=== PATIENT | female | born 1930 | race Caucasian/White ===

== ENCOUNTER 2017-04-03 12:44 | Inpatient (IN) | payer MEDICARE, OTHER ==
[2017-04-03] MEDS ORDERED: METHYLPREDNISOLONE INJ 125 MG/2 ML SDV ONE (12:56)
[2017-04-03] MEDS ORDERED: METHYLPREDNISOLONE INJ 125 MG/2 ML SDV IV ONE (13:00)
[2017-04-03] MEDS ORDERED: RACEPINEPHRINE HCL 2.25% NEB 0.5 ML AMPUL NEB ONE (13:00)
[2017-04-03] MEDS ORDERED: ETOMIDATE INJ/PF 20 MG/10 ML SDV IV ONE (13:08)
[2017-04-03] MEDS ORDERED: PROPOFOL 100 ML IV ONE (13:13)
[2017-04-03] MEDS ORDERED: NORMAL SALINE 1000 ML 1,000 ML IV ONE ×2 (13:43)
[2017-04-03 13:47] LABS: VENOUS BLOOD BASE EXCESS 7.1 mmol/L; VENOUS BLOOD HCO3 34.1 mmol/L (20-32); VENOUS BLOOD PH 7.33 (7.30-7.42)
[2017-04-03 13:49] LABS: ABSOLUTE MONOCYTES (AUTO) 0.6 10^3/uL (0.1-1.4); ABSOLUTE NEUT (AUTO) 4.3 10^3/uL (1.7-8.2); BASOPHILS % (AUTO) 0.4 % (0-2); EOSINOPHILS % (AUTO) 0.2 % (0-6); HEMATOCRIT 17.7 % (36.0-47.0); LYMPHOCYTES % (AUTO) 17.1 % (13-45); MEAN CORPUSCULAR HEMOGLOBIN 28.6 pg (27.0-33.4); MEAN CORPUSCULAR HGB CONC 32.5 g/dL (32.0-36.0); MEAN CORPUSCULAR VOLUME 88 fl (80-97); MONOCYTES % (AUTO) 10.7 % (3-13); PLATELET COUNT 593 10^3/uL (150-450); RED BLOOD COUNT 2.01 10^6/uL (3.72-5.28); RED CELL DISTRIBUTION WIDTH 17.1 % (11.5-14.0); SEGMENTED NEUTROPHILS % (AUTO) 71.6 % (42-78); TOTAL CELLS COUNTED % (AUTO) 100 %
[2017-04-03 13:56] LABS: HEMOGLOBIN 5.7 g/dL (12.0-15.5)
[2017-04-03 14:01] LABS: VENOUS BLOOD PCO2 65.8 mmHg (35-63)
[2017-04-03] MEDS ORDERED: NORMAL SALINE 250 ML IV PRN ×2 (14:01)
[2017-04-03 14:04] LABS: ALANINE AMINOTRANSFERASE 28 U/L (9-52); ALKALINE PHOSPHATASE 79 U/L (38-126); ANION GAP 9 (5-19); ASPARTATE AMINO TRANSFERASE 29 U/L (14-36); BILIRUBIN,DIRECT 0.1 mg/dL (0.0-0.4); BILIRUBIN,TOTAL 0.1 mg/dL (0.2-1.3); BLOOD UREA NITROGEN 15 mg/dL (7-20); CALCIUM 8.4 mg/dL (8.4-10.2); CARBON DIOXIDE 36 mmol/L (22-30); CHLORIDE 100 mmol/L (98-107); CREATINE KINASE 44 U/L (30-135); GLUCOSE 109 mg/dL (75-110); LIPASE 105.8 U/L (23-300); MAGNESIUM 1.8 mg/dL (1.6-2.3); POTASSIUM 3.7 mmol/L (3.6-5.0); SODIUM 144.6 mmol/L (137-145); TOTAL PROTEIN 5.3 g/dL (6.3-8.2)
[2017-04-03 14:16] LABS: TROPONIN I 0.028 ng/mL
[2017-04-03 14:34] LABS: APPEARANCE,URINE CLOUDY; BILIRUBIN,URINE NEGATIVE (NEGATIVE); COLOR,URINE YELLOW; GLUCOSE, URINE NEGATIVE (NEGATIVE); KETONES,URINE NEGATIVE (NEGATIVE); LEUKOCYTE ESTERASE,URINE LARGE (NEGATIVE); NITRITE,URINE POSITIVE (NEGATIVE); PROTEIN,URINE 100 mg/dL (NEGATIVE); URINE SPECIFIC GRAVITY 1.015; UROBILINOGEN,URINE NEGATIVE mg/dL (<2.0)
[2017-04-03] MEDS ORDERED: CEFTRIAXONE 1 GM/D5W RTU 1 GM/50 ML RTUPB IV ONE (14:45)
--- NOTE | 2017-04-03 14:48 | RADIOLOGY REPORT (SQ) ---
EXAM DESCRIPTION: CHEST SINGLE VIEW COMPLETED DATE/TIME: 04/03/2017 2:37 pm REASON FOR STUDY: ET TUBE PLACEMENT CENTRAL LINE PLACEMENT COMPARISON: None. EXAM PARAMETERS: NUMBER OF VIEWS: One view. TECHNIQUE: Single frontal radiographic view of the chest acquired. RADIATION DOSE: NA LIMITATIONS: None. FINDINGS: LUNGS AND PLEURA: Diffuse airspace disease bilaterally. Differential includes aspiration, hemorrhage, infectious process or alveolar edema. MEDIASTINUM AND HILAR STRUCTURES: No masses. Contour normal. HEART AND VASCULAR STRUCTURES: Heart normal in size. Normal vasculature. BONES: No acute findings. HARDWARE: Endotracheal tube present and in proper position. Tip 3.8 cm from the stanislav. Tip of the central line on the right projected over the right atrium. Distally NG beneath the diaphragm. OTHER: No other significant finding. IMPRESSION: Extensive pulmonary opacity bilaterally. See above discussion. Tip of the central line on the right projected over the right atrium. Endotracheal tube in good position. Distal NG tube beneath the diaphragm. TECHNICAL DOCUMENTATION: JOB ID: [id number] [employer]- All Rights Reserved
[2017-04-03] MEDS ORDERED: PIPERACILLIN/TAZOBACTAM 4.5 GM VIAL IV ONE (14:56)
--- NOTE | 2017-04-03 15:04 | ER Document Report ---
ED General - General Chief Complaint: Allergic Reaction Stated Complaint: ALLERGIC REACTION Time Seen by Provider: 04/03/17 13:00 - HPI Patient complains to provider of: Allergic reaction Notes: Patient coming in for possible allergic reaction. According EMS originally was called out for fever and feeling unwell. According EMS patient was seen yesterday by local EMS however refused care at that time. Today patient with diffuse periorbital edema and according EMS tongue swelling. Patient was given Benadryl and Pepcid transported to the ER for further evaluation. Upon my evaluation patient with mild to moderate tongue swelling angioedema bilateral orbits quick evaluation of the oral cavity does not reveal uvula edema. Patient oxygenation upon initial arrival was 84% requiring a nonrebreather upon removing a nonrebreather to examine the oral cavity patient quickly desaturated. Otherwise patient has a history of dementia does moan the pain will open her eyes to voice. No other history given via EMS except for recent C. difficile diagnoses with antibiotic treatment and recurrent UTIs - Related Data Allergies/Adverse Reactions: diazepam [From Valium] Allergy (Verified 04/03/17 15:08) Past Medical History - Social History Smoking Status: Unknown if Ever Smoked Chew tobacco use (# tins/day): No Drug Abuse: None Family History: Reviewed & Not Pertinent Patient has suicidal ideation: No Patient has homicidal ideation: No Renal/ Medical History: Denies: Hx Peritoneal Dialysis Review of Systems - Review of Systems -: Yes ROS unobtainable due to patient's medical condition - Dementia Physical Exam - Vital signs Vitals: Resp Pulse Ox 15 100 04/03/17 12:48 04/03/17 12:48 Interpretation: Hypoxic - General General appearance: Other - HEENT Head: Normocephalic, Atraumatic Eyes: Normal Conjunctiva: Normal Cornea: Normal Eyelashes: Other - Periorbital edema Pupils: PERRL Mouth/Lips: Normal - Mild to moderate swelling of the tongue. There is also uvula edema present. Pharynx: Uvular edema Neck: Normal - Respiratory Respiratory status: Respiratory distress - Moderate Chest status: Nontender Breath sounds: Rhonchi, Wheezing Chest palpation: Normal - Cardiovascular Heart sounds: Normal auscultation Murmur: No - Abdominal Inspection: Normal Distension: No distension Bowel sounds: Normal Tenderness: Nontender Organomegaly: No organomegaly - Rectal Stool: Black - Back Back: Normal, Nontender - Extremities General upper extremity: Normal inspection, Nontender, Normal color, Normal ROM , Normal temperature General lower extremity: Normal inspection, Nontender, Normal color, Normal ROM , Normal temperature, Normal weight bearing. No: Peter's sign - Neurological Neuro grossly intact: Yes Cognition: Normal Orientation: AAOx4 [employer] Coma Scale Eye Opening: Spontaneous [employer] Coma Scale Verbal: Oriented [employer] Coma Scale Motor: Obeys Commands [employer] Coma Scale Total: 15 Speech: Normal Motor strength normal: LUE, RUE, LLE, RLE Sensory: Normal - Psychological Associated symptoms: Normal affect, Normal mood - Skin Skin Temperature: Warm Skin Moisture: Dry Skin Color: Normal Course - Re-evaluation Re-evalutation: 04/03/17 15:18 Due to the patient required 100% nonrebreather with respiratory distress becoming hypoxic after removal of oxygen concern for allergic reaction airway compromise patient was intubated. There was swelling of the airway during intubation however we are over the past a 70 tube after intubation family did arrive states history of recurrent UTIs recent C. difficile infection and a history of chronic GI bleeding states multiple colonoscopies with no found source. Patient received multiple blood transfusions because of the chronic GI bleed. States her symptoms have been ongoing for the last 3 days with swelling of the face. Laboratory studies showed anemia requiring transfusion slight elevation and CO2 in the VBG. Patient continued on the ventilator with elevated FiO2 of 80-90% keep her oxygenation up. Suctioning of thick sputum from ET tube was also performed. Rectal exam revealed black stool. Unable to obtain a sample for C. difficile testing this time. Initially start patient on Zosyn. Will transfuse patient 2 units of blood will continue to monitor patient. Patient did have central line placed 2 as well as patient will need ICU care. 04/03/17 15:19 - Vital Signs Vital signs: Temp Pulse Resp BP Pulse Ox 18 132/67 H 100 04/03/17 15:02 04/03/17 15:02 04/03/17 15:02 - Laboratory Result Diagrams: 04/03/17 13:34 04/03/17 13:34 Laboratory results interpreted by me: 04/03/17 04/03/17 04/03/17 13:34 13:34 13:34 RBC 2.01 L Hgb 5.7 L Hct 17.7 L RDW 17.1 H Plt Count 593 H VBG pCO2 65.8 H* VBG HCO3 34.1 H Carbon Dioxide 36 H Total Bilirubin 0.1 L NT-Pro-B Natriuret Pep Total Protein 5.3 L Albumin 3.0 L Urine Protein Urine Nitrite Ur Leukocyte Esterase Urine Ascorbic Acid Crossmatch 04/03/17 04/03/17 04/03/17 13:34 14:13 14:37 RBC Hgb Hct RDW Plt Count VBG pCO2 VBG HCO3 Carbon Dioxide Total Bilirubin NT-Pro-B Natriuret Pep 3110 H Total Protein Albumin Urine Protein 100 H Urine Nitrite POSITIVE H Ur Leukocyte Esterase LARGE H Urine Ascorbic Acid 40 H Crossmatch See Detail Procedures - Central Line Right Internal jugular Consent obtained: Yes Central line pre-insertion: Sterile PPE donned, Chloraprep applied Central line lumen type: Triple Ultrasound guided: Yes CM at insertion site: 20 Line secured with sutures: Yes Central line post-insertion: Blood return from lumens, Biopatch applied, Sutured , Sterile dressing applied, Position confirmed w/ CXR Number of attempts: 1 Complications: No - Intubation Nasotracheal Airway evaluation: Large tongue, Poss. upper airway obst. Mallampati Classification: Class 3 Intubation method: Nasotracheal Blade size: 3 Equipment used: Glidescope ETT size: 7.0 ETT secured at: Teeth ETT secured at (cm): 20 Breath Sounds after Intubation: Equal End tidal CO2 confirmed: Yes Critical Care Note - Critical Care Note Total time excluding time spent on procedures (mins): 60 Comments: Multiple evaluation for respiratory distress. Discharge - Discharge Clinical Impression: Anemia requiring transfusions Respiratory failure Qualifiers: Chronicity: acute Respiratory failure complication: unspecified whether with hypoxia or hypercapnia Qualified Code(s): J96.00 - Acute respiratory failure, unspecified whether with hypoxia or hypercapnia Allergic reaction Qualifiers: Encounter type: initial encounter Qualified Code(s): T78.40XA - Allergy, unspecified, initial encounter GI bleed Qualifiers: GI bleed type/associated pathology: unspecified gastrointestinal hemorrhage type Qualified Code(s): K92.2 - Gastrointestinal hemorrhage, unspecified Pneumonia Qualifiers: Pneumonia type: due to unspecified organism Laterality: unspecified laterality Lung location: unspecified part of lung Qualified Code(s): J18.9 - Pneumonia, unspecified organism Condition: Fair Disposition: ADMITTED INPATIENT Admitting Provider: Hospitalist - [facility] Admitted: ICU Referrals: ALKA VIRAMONTES PA-C [Primary Care Provider] - Follow up as needed
[2017-04-03] MEDS ORDERED: ACETAMINOPHEN 325 MG TABLET PO PRN (15:25)
[2017-04-03] MEDS ORDERED: OXYCODONE-ACETAMINOPHEN 5-325 MG TABLET PO PRN (15:25)
[2017-04-03] MEDS ORDERED: DEXTROSE 5%-NORMAL SALINE 1,000 ML IV PRN (15:25)
[2017-04-03] MEDS ORDERED: ONDANSETRON HCL INJ/PF 4 MG/2 ML SDV IV PRN (15:25)
[2017-04-03] MEDS ORDERED: PIPERACILLIN/TAZOBACTAM 3.375 GM VIAL IV SCH (15:30)
[2017-04-03] MEDS ORDERED: PHARMACY COMMUNICATION ORDER MC NR (15:30)
[2017-04-03 15:39] LABS: ARTERIAL BLOOD BASE EXCESS 7.9 mmol/L; ARTERIAL BLOOD H2CO3 1.95 mmol/L (1.05-1.35); ARTERIAL BLOOD HCO3 34.4 mmol/L (20-26); ARTERIAL BLOOD O2 SATURATION 98.3 % (94-98); ARTERIAL BLOOD PCO2 64.7 mmHg (35-45); ARTERIAL BLOOD PH 7.34 (7.35-7.45); ARTERIAL BLOOD PO2 129.1 mmHg (80-100); ARTERIAL BLOOD TOTAL CO2 36.4 mmol/L (21-25)
[2017-04-03 15:40] LABS: ARTERIAL BLOOD FIO2 90%
[2017-04-03] MEDS ORDERED: SUCCINYLCHOLINE CHLORIDE INJ 200 MG/10 ML VIAL ONE (16:12)
[2017-04-03] MEDS ORDERED: ROCURONIUM BROMIDE INJ 50 MG/5 ML VIAL IV ONE (16:12)
--- NOTE | 2017-04-03 16:14 | RADIOLOGY REPORT (SQ) ---
EXAM DESCRIPTION: KUB/ABDOMEN (SINGLE VIEW) COMPLETED DATE/TIME: 04/03/2017 3:58 pm REASON FOR STUDY: Check Placement of NG Tube COMPARISON: None. NUMBER OF VIEWS: One view. TECHNIQUE: Supine radiographic image of the abdomen acquired. LIMITATIONS: KUB for nasogastric tube placement. Inferior pelvis incompletely included in the field of view FINDINGS: A nasogastric tube is present with the tip in the stomach and side port near the GE juncti on. Grossly nonobstructive bowel gas pattern. There is opacification of the right lung base, patchy opacification left lung base worrisome for biba silar pneumonia or atelectasis. Bladder stimulator is present with a battery pack over the left gluteal region. Multiple calcified splenic granulomas. Calcified pelvic phleboliths. Degenerative changes lumbar spine IMPRESSION: Nasogastric tube tip and side port in the stomach TECHNICAL DOCUMENTATION: JOB ID: [id number] [employer]- All Rights Reserved
[2017-04-03 16:33] LABS: A TYPE INFLUENZA AG NEGATIVE (NEGATIVE); B INFLUENZA AG NEGATIVE (NEGATIVE)
[2017-04-03] MEDS ORDERED: MIDAZOLAM HCL 50 MG/100 ML RTUINJ IV ONE (17:59)
[2017-04-03] MEDS: PROPOFOL 100 ML IV PRN ×2 (18:06→22:14)
[2017-04-03] MEDS: MIDAZOLAM HCL 50 MG/100 ML RTUINJ IV PRN (18:06)
[2017-04-03] MEDS: LANSOPRAZOLE 30 MG TAB.RAP.DR PO SCH (18:57)
[2017-04-03] MEDS: FUROSEMIDE INJ/PF 20 MG/2 ML SDV IV SCH (18:57)
[2017-04-03] MEDS: DIPHENHYDRAMINE HCL 50 MG/ML VIAL IV SCH (18:57)
[2017-04-03] MEDS: LINEZOLID 300 ML IV SCH (19:02)
[2017-04-03] MEDS: DEXTROSE 5%-NORMAL SALINE 1,000 ML IV PRN (19:04)
[2017-04-03] MEDS ORDERED: GLUCAGON,HUMAN RECOMB 1 MG INJ IM PRN (19:20)
[2017-04-03] MEDS ORDERED: DEXTROSE 40% GEL 15 GM TUBE PO PRN ×2 (19:20)
[2017-04-03] MEDS ORDERED: DEXTROSE 50%-WATER 25 GM/50 ML DISP.SYRIN IV PRN ×2 (19:20)
--- NOTE | 2017-04-03 19:30 | PDOC H&P ---
History of Present Illness Admission Date/PCP: ALKA VIRAMONTES PA-C Patient complains of: Patient intubated History of Present Illness: PHYLLIS BARRERA is a 86 year old female had not been feeling well for a couple of days. She has not been able to walk. On the day of evaluation her eyelids were swollen as well as the tongue. EMS was called and patient was administered Pepcid and Benadryl while in route. Upon arrival to emergency room patient was found to be hypoxemic and the decision was made by ED physician to intubate patient. Our service was contacted for further management. It is not worth it to mention that daughter was to bedside and was able to provide some information as above. Also she stated that patient suffers from anemia and had required to be transfused in the recent past. She always test positive for blood in her stool. She had been extensively evaluated and the physicians taking care of her had not been able to determine the cause. Patient was recently treated for C. difficile. Patient suffers from recurrent urinary tract infection and it appears to be that the recurring use of antibiotic was the culprit. Also it appears that patient tested positive for Salmonella. Patient has history of diabetes and is on Januvia. However daughter cannot tell about other medications such as blood pressure medication. Past Medical History Cardiac Medical History: Reports: Hyperlipidema Cardiac History Note: Unavailable Pulmonary History Note: Unavailable EENT Medical History: Reports: None Neurological Medical History: Reports: None Endocrine Medical History: Reports: Diabetes Mellitus Type 2, Hypothyroidism Renal/ Medical History: Reports: None Malignancy Medical History: Reports: None GI Medical History: Reports: Other - GI bleeding of unknown source Psychiatric Medical History: Reports: Dementia, Depression Hematology: Reports: Anemia Infectious Medical History: Denies: Other Past Surgical History Past Surgical History: Reports: Other - Colonoscopies Social History Information Source: Relative Smoking Status: Unknown if Ever Smoked Frequency of Alcohol Use: None Hx Recreational Drug Use: No Drugs: None Hx Prescription Drug Abuse: Yes - Advance Directive Resuscitation Status: Do Not Resuscitate Family History Family History: Reviewed & Not Pertinent Parental Family History Reviewed: Yes Children Family History Reviewed: Yes Sibling(s) Family History Reviewed.: Yes Medication/Allergy Home Medications: Amlodipine Besylate [Norvasc 10 mg Tablet] 10 mg PO QHS 04/03/17 Anastrozole [Arimidex 1 mg Tablet] 1 mg PO DAILY 04/03/17 Aspirin [Aspirin 325 mg Tablet] 325 mg PO QHS 04/03/17 Atorvastatin Calcium [Lipitor 20 mg Tablet] 20 mg PO QHS 04/03/17 Calcium Carbonate/Vitamin D3 [Oyster Shell Calcium-Vit D Tab] 1 each PO QPM Donepezil HCl [Aricept] 10 mg PO QPM 04/03/17 Eplerenone [Inspra] 50 mg PO DAILY 04/03/17 Escitalopram Oxalate [Lexapro 10 mg Tablet] 10 mg PO QPM 04/03/17 Glimepiride [Amaryl 1 mg Tablet] 1 mg PO BID 04/03/17 Levothyroxine Sodium [Synthroid] 137 mcg PO Q6AM 04/03/17 Losartan Potassium [Cozaar 50 mg Tablet] 50 mg PO QHS 04/03/17 Metformin HCl [Glucophage 500 mg Tablet] 500 mg PO BID 04/03/17 Omeprazole Magnesium [Prilosec Otc] 20 mg PO QHS 04/03/17 Ropinirole HCl [Requip 2 Mg Tablet] 2 mg PO Q12 04/03/17 Sitagliptin Phosphate [Januvia 50 mg Tablet] 50 mg PO Q12 04/03/17 Allergies/Adverse Reactions: diazepam [From Valium] Allergy (Verified 04/03/17 15:08) Physical Exam Vital Signs: Temp Pulse Resp BP Pulse Ox 15 133/60 H 100 04/03/17 15:42 04/03/17 15:42 04/03/17 15:42 Intake & Output 04/02/17 04/03/17 04/04/17 06:59 06:59 06:59 Weight 85.3 kg Results Laboratory Results: 04/03/17 13:34 04/03/17 13:34 04/03/17 04/03/17 04/03/17 12:50 12:50 13:34 WBC Cancelled RBC Cancelled Hgb Cancelled Hct Cancelled MCV Cancelled MCH Cancelled MCHC Cancelled RDW Cancelled Plt Count Cancelled Seg Neutrophils % Cancelled Lymphocytes % Cancelled Monocytes % Cancelled Eosinophils % Cancelled Basophils % Cancelled Absolute Neutrophils Cancelled Absolute Lymphocytes Cancelled Absolute Monocytes Cancelled Absolute Eosinophils Cancelled Absolute Basophils Cancelled Carbonic Acid HCO3/H2CO3 Ratio ABG pH ABG pCO2 ABG pO2 ABG HCO3 ABG O2 Saturation ABG Base Excess VBG pH 7.33 VBG pCO2 65.8 H* VBG HCO3 34.1 H VBG Base Excess 7.1 FiO2 Sodium Cancelled Potassium Cancelled Chloride Cancelled Carbon Dioxide Cancelled Anion Gap Cancelled BUN Cancelled Creatinine Cancelled Est GFR ( Amer) Cancelled Est GFR (Non-Af Amer) Cancelled Glucose Cancelled Lactic Acid Calcium Cancelled Magnesium Cancelled Total Bilirubin Cancelled AST Cancelled ALT Cancelled Alkaline Phosphatase Cancelled Total Protein Cancelled Albumin Cancelled Lipase Cancelled Urine Color Urine Appearance Urine pH Ur Specific Onward Urine Protein Urine Glucose (UA) Urine Ketones Urine Blood Urine Nitrite Ur Leukocyte Esterase Urine WBC (Auto) Urine RBC (Auto) Stool Occult Blood Blood Type Antibody Screen 04/03/17 04/03/17 04/03/17 13:34 13:34 14:00 WBC 6.0 RBC 2.01 L Hgb 5.7 L Hct 17.7 L MCV 88 MCH 28.6 MCHC 32.5 RDW 17.1 H Plt Count 593 H Seg Neutrophils % 71.6 Lymphocytes % 17.1 Monocytes % 10.7 Eosinophils % 0.2 Basophils % 0.4 Absolute Neutrophils 4.3 Absolute Lymphocytes 1.0 Absolute Monocytes 0.6 Absolute Eosinophils 0.0 Absolute Basophils 0.0 Carbonic Acid HCO3/H2CO3 Ratio ABG pH ABG pCO2 ABG pO2 ABG HCO3 ABG O2 Saturation ABG Base Excess VBG pH VBG pCO2 VBG HCO3 VBG Base Excess FiO2 Sodium 144.6 Potassium 3.7 Chloride 100 Carbon Dioxide 36 H Anion Gap 9 BUN 15 Creatinine 0.55 Est GFR ( Amer) > 60 Est GFR (Non-Af Amer) > 60 Glucose 109 Lactic Acid Calcium 8.4 Magnesium 1.8 Total Bilirubin 0.1 L AST 29 ALT 28 Alkaline Phosphatase 79 Total Protein 5.3 L Albumin 3.0 L Lipase 105.8 Urine Color Urine Appearance Urine pH Ur Specific Onward Urine Protein Urine Glucose (UA) Urine Ketones Urine Blood Urine Nitrite Ur Leukocyte Esterase Urine WBC (Auto) Urine RBC (Auto) Stool Occult Blood POSITIVE Blood Type Antibody Screen 04/03/17 04/03/17 04/03/17 14:13 14:37 15:10 WBC RBC Hgb Hct MCV MCH MCHC RDW Plt Count Seg Neutrophils % Lymphocytes % Monocytes % Eosinophils % Basophils % Absolute Neutrophils Absolute Lymphocytes Absolute Monocytes Absolute Eosinophils Absolute Basophils Carbonic Acid 1.95 H HCO3/H2CO3 Ratio 17:1 ABG pH 7.34 L ABG pCO2 64.7 H ABG pO2 129.1 H ABG HCO3 34.4 H ABG O2 Saturation 98.3 H ABG Base Excess 7.9 VBG pH VBG pCO2 VBG HCO3 VBG Base Excess FiO2 90% Sodium Potassium Chloride Carbon Dioxide Anion Gap BUN Creatinine Est GFR ( Amer) Est GFR (Non-Af Amer) Glucose Lactic Acid Calcium Magnesium Total Bilirubin AST ALT Alkaline Phosphatase Total Protein Albumin Lipase Urine Color YELLOW Urine Appearance CLOUDY Urine pH 6.0 Ur Specific Onward 1.015 Urine Protein 100 H Urine Glucose (UA) NEGATIVE Urine Ketones NEGATIVE Urine Blood NEGATIVE Urine Nitrite POSITIVE H Ur Leukocyte Esterase LARGE H Urine WBC (Auto) >182 Urine RBC (Auto) 21 Stool Occult Blood Blood Type O POSITIVE Antibody Screen NEGATIVE 04/03/17 15:30 WBC RBC Hgb Hct MCV MCH MCHC RDW Plt Count Seg Neutrophils % Lymphocytes % Monocytes % Eosinophils % Basophils % Absolute Neutrophils Absolute Lymphocytes Absolute Monocytes Absolute Eosinophils Absolute Basophils Carbonic Acid HCO3/H2CO3 Ratio ABG pH ABG pCO2 ABG pO2 ABG HCO3 ABG O2 Saturation ABG Base Excess VBG pH VBG pCO2 VBG HCO3 VBG Base Excess FiO2 Sodium Potassium Chloride Carbon Dioxide Anion Gap BUN Creatinine Est GFR ( Amer) Est GFR (Non-Af Amer) Glucose Lactic Acid 0.8 Calcium Magnesium Total Bilirubin AST ALT Alkaline Phosphatase Total Protein Albumin Lipase Urine Color Urine Appearance Urine pH Ur Specific Onward Urine Protein Urine Glucose (UA) Urine Ketones Urine Blood Urine Nitrite Ur Leukocyte Esterase Urine WBC (Auto) Urine RBC (Auto) Stool Occult Blood Blood Type Antibody Screen 04/03/17 04/03/17 13:34 13:34 Creatine Kinase 44 Troponin I 0.028 NT-Pro-B Natriuret Pep 3110 H Impressions: Chest X-Ray 04/03/17 13:01 IMPRESSION: Extensive pulmonary opacity bilaterally. See above discussion. Tip of the central line on the right projected over the right atrium. Endotracheal tube in good position. Distal NG tube beneath the diaphragm. Assessment & Plan - Diagnosis (1) Acute respiratory failure Qualifiers: Respiratory failure complication: hypoxia Qualified Code(s): J96.01 - Acute respiratory failure with hypoxia Is this a current diagnosis for this admission?: Yes Plan: Likely due to pneumonic process. Do not believe that the angioedema is the precipitant factor of hypoxemia. Also Dr. Epps but likely she may be extubated in the morning (2) Anemia requiring transfusions Is this a current diagnosis for this admission?: Yes Plan: Will transfuse as needed. (3) Angioedema Qualifiers: Encounter type: initial encounter Qualified Code(s): T78.3XXA - Angioneurotic edema, initial encounter Is this a current diagnosis for this admission?: Yes Plan: Patient is on Januvia which had caused angioedema. For now will place patient on IV steroids, Benadryl and H2 jad (4) Pneumonia Qualifiers: Pneumonia type: due to unspecified organism Laterality: unspecified laterality Lung location: unspecified part of lung Qualified Code(s): J18.9 - Pneumonia, unspecified organism Is this a current diagnosis for this admission?: Yes Plan: Will place on Zyvox and Zosyn - Time Time Spent: 50 to 70 Minutes Medications reviewed and adjusted accordingly: Yes Anticipated discharge: Acute Rehab Within: within 72 hours - Inpatient Certification Based on my medical assessment, after consideration of the patient's comorbidities, presenting symptoms, or acuity I expect that the services needed warrant INPATIENT care.: Yes I certify that my determination is in accordance with my understanding of Medicare's requirements for reasonable and necessary INPATIENT services [42 CFR 412.3e].: Yes Medical Necessity: Need Close Monitoring Due to Risk of Patient Decompensation, Need For IV Fluids, Need for IV Antibiotics
[2017-04-03] MEDS: METHYLPREDNISOLONE INJ 40 MG/1 ML SDV IV SCH (22:16)
[2017-04-04] MEDS: PIPERACILLIN SODIUM/TAZOBACTAM 3.375 GM in NORMAL SALINE 100 ML IV SCH ×4 (01:04→21:22)
[2017-04-04] MEDS: PROPOFOL 100 ML IV PRN ×4 (02:37→23:33)
[2017-04-04] MEDS: DIPHENHYDRAMINE HCL 50 MG/ML VIAL IV SCH ×5 (03:19→23:42)
[2017-04-04 05:59] LABS: ANION GAP 5 (5-19); BLOOD UREA NITROGEN 14 mg/dL (7-20); CALCIUM 7.7 mg/dL (8.4-10.2); CARBON DIOXIDE 34 mmol/L (22-30); CHLORIDE 104 mmol/L (98-107); GLUCOSE 220 mg/dL (75-110); IRON(TIBC) 10.4 ug/dL (37-170); POTASSIUM 3.7 mmol/L (3.6-5.0); SODIUM 142.7 mmol/L (137-145)
[2017-04-04 06:02] LABS: ABSOLUTE LYMPHOCYTES (AUTO) 0.5 10^3/uL (0.5-4.7); ABSOLUTE MONOCYTES (AUTO) 0.5 10^3/uL (0.1-1.4); ABSOLUTE NEUT (AUTO) 4.8 10^3/uL (1.7-8.2); ABSOLUTE RETICS # 0.122 10^6/uL (0.028-0.122); BASOPHILS % (AUTO) 0.4 % (0-2); EOSINOPHILS % (AUTO) 0.1 % (0-6); HEMATOCRIT 22.4 % (36.0-47.0); LYMPHOCYTES % (AUTO) 9.4 % (13-45); MEAN CORPUSCULAR HEMOGLOBIN 28.4 pg (27.0-33.4); MEAN CORPUSCULAR HGB CONC 32.7 g/dL (32.0-36.0); MEAN CORPUSCULAR VOLUME 87 fl (80-97); MONOCYTES % (AUTO) 7.8 % (3-13); PLATELET COUNT 523 10^3/uL (150-450); RED BLOOD COUNT 2.58 10^6/uL (3.72-5.28); RED CELL DISTRIBUTION WIDTH 16.6 % (11.5-14.0); RETICULOCYTE COUNT (AUTO) 4.72 % (0.66-2.85); SEGMENTED NEUTROPHILS % (AUTO) 82.3 % (42-78); TOTAL CELLS COUNTED % (AUTO) 100 %; WHITE BLOOD COUNT 5.8 10^3/uL (4.0-10.5)
[2017-04-04 06:07] LABS: HEMOGLOBIN 7.3 g/dL (12.0-15.5)
[2017-04-04] MEDS ORDERED: NORMAL SALINE 250 ML IV PRN ×3 (06:10→07:55)
[2017-04-04] MEDS: METHYLPREDNISOLONE INJ 40 MG/1 ML SDV IV SCH ×3 (06:32→21:23)
[2017-04-04] MEDS ORDERED: FUROSEMIDE INJ/PF 20 MG/2 ML SDV IV PRN (07:55)
--- NOTE | 2017-04-04 08:06 | PDOC PROGRESS REPORT ---
Subjective Progress Note for:: 04/04/17 Subjective:: Unable to obtain since intubated and sedated Reason For Visit: ACUTE RESPIRATORY FAILURE Physical Exam Vital Signs: Temp Pulse Resp BP Pulse Ox 97.4 F 68 12 106/54 L 93 04/03/17 23:28 04/03/17 23:28 04/04/17 04:30 04/04/17 04:30 04/04/17 04:30 Intake & Output 04/03/17 04/04/17 04/05/17 06:59 06:59 06:59 Intake Total 300 Output Total 1300 Balance -1000 General appearance: PRESENT: no acute distress Head exam: PRESENT: atraumatic, normocephalic Eye exam: PRESENT: conjunctiva pale, EOMI, PERRLA Mouth exam: PRESENT: moist, neck supple Neck exam: ABSENT: JVD, lymphadenopathy Respiratory exam: PRESENT: clear to auscultation quinten Cardiovascular exam: PRESENT: RRR. ABSENT: diastolic murmur, systolic murmur Vascular exam: PRESENT: normal capillary refill GI/Abdominal exam: PRESENT: normal bowel sounds, soft Extremities exam: PRESENT: pedal edema. ABSENT: clubbing, joint swelling Musculoskeletal exam: ABSENT: ambulatory Neurological exam: PRESENT: other - sedated Psychiatric exam: PRESENT: other - sedated Skin exam: PRESENT: intact, pallor Results Laboratory Results: 04/04/17 05:25 04/04/17 05:25 04/04/17 04/04/17 05:25 05:25 WBC 5.8 RBC 2.58 L Hgb 7.3 L Hct 22.4 L MCV 87 MCH 28.4 MCHC 32.7 RDW 16.6 H Plt Count 523 H Seg Neutrophils % 82.3 H Lymphocytes % 9.4 L Monocytes % 7.8 Eosinophils % 0.1 Basophils % 0.4 Absolute Neutrophils 4.8 Absolute Lymphocytes 0.5 Absolute Monocytes 0.5 Absolute Eosinophils 0.0 Absolute Basophils 0.0 Retic Count (auto) 4.72 H Absolute Retic 0.122 Sodium 142.7 Potassium 3.7 Chloride 104 Carbon Dioxide 34 H Anion Gap 5 BUN 14 Creatinine 0.51 L Est GFR ( Amer) > 60 Est GFR (Non-Af Amer) > 60 Glucose 220 H Calcium 7.7 L Iron 10.4 L TIBC 329 % Saturation 3 Ferritin 16.10 Vitamin B12 > 1000.0 H Folate 17.80 01/23/18 01/23/18 17:30 21:05 Troponin I 0.039 0.029 Impressions: Chest X-Ray 04/03/17 13:01 IMPRESSION: Extensive pulmonary opacity bilaterally. See above discussion. Tip of the central line on the right projected over the right atrium. Endotracheal tube in good position. Distal NG tube beneath the diaphragm. KUB X-Ray 04/03/17 15:27 IMPRESSION: Nasogastric tube tip and side port in the stomach Assessment & Plan - Diagnosis (1) Acute respiratory failure Qualifiers: Respiratory failure complication: hypoxia Qualified Code(s): J96.01 - Acute respiratory failure with hypoxia Is this a current diagnosis for this admission?: Yes Plan: Likely due to pneumonic process. Do not believe that the angioedema is the precipitant factor of hypoxemia. Dr Epps to assist in weaning off ventilator (2) Anemia requiring transfusions Is this a current diagnosis for this admission?: Yes Plan: Order 2 units and trend (3) Angioedema Qualifiers: Encounter type: initial encounter Qualified Code(s): T78.3XXA - Angioneurotic edema, initial encounter Is this a current diagnosis for this admission?: Yes Plan: Patient is on Januvia which may had caused angioedema. Continue current treatment. Improved (4) Pneumonia Qualifiers: Pneumonia type: due to unspecified organism Laterality: unspecified laterality Lung location: unspecified part of lung Qualified Code(s): J18.9 - Pneumonia, unspecified organism Is this a current diagnosis for this admission?: Yes Plan: Continue current treatment - Time Time Spent with patient: 15-24 minutes Medications reviewed and adjusted accordingly: Yes Anticipated discharge: Acute Rehab Within: within 72 hours - Inpatient Certification Based on my medical assessment, after consideration of the patient's comorbidities, presenting symptoms, or acuity I expect that the services needed warrant INPATIENT care.: Yes Medical Necessity: Need Close Monitoring Due to Risk of Patient Decompensation, Need for IV Antibiotics - Ventilatory support
[2017-04-04] MEDS: DEXTROSE 5%-NORMAL SALINE 1,000 ML IV PRN ×3 (08:26→23:34)
[2017-04-04] MEDS: FUROSEMIDE INJ/PF 20 MG/2 ML SDV IV SCH ×2 (08:28→18:14)
[2017-04-04] MEDS: LANSOPRAZOLE 30 MG TAB.RAP.DR PO SCH ×2 (08:37→16:59)
--- NOTE | 2017-04-04 08:53 | EKG REPORT ---
SEVERITY:- ABNORMAL ECG - SINUS RHYTHM INCOMPLETE RIGHT BUNDLE BRANCH BLOCK CONSIDER ANTERIOR INFARCT BORDERLINE PROLONGED QT INTERVAL : Confirmed by: Michelle Rogers MD 04-Apr-2017 08:51:28
[2017-04-04] MEDS: LINEZOLID 300 ML IV SCH ×2 (09:21→18:19)
[2017-04-04 09:29] LABS: ARTERIAL BLOOD BASE EXCESS 9.2 mmol/L; ARTERIAL BLOOD H2CO3 1.71 mmol/L (1.05-1.35); ARTERIAL BLOOD O2 SATURATION 93.2 % (94-98); ARTERIAL BLOOD PCO2 56.9 mmHg (35-45); ARTERIAL BLOOD PH 7.41 (7.35-7.45); ARTERIAL BLOOD PO2 67.9 mmHg (80-100); ARTERIAL BLOOD TOTAL CO2 36.8 mmol/L (21-25)
[2017-04-04 09:32] LABS: ARTERIAL BLOOD FIO2 60%
[2017-04-04] MEDS: PANTOPRAZOLE SODIUM 40 MG VIAL IV SCH (11:45)
[2017-04-04] MEDS: DOCUSATE SODIUM 100 MG CAPSULE PO SCH (11:47)
[2017-04-04] MEDS ORDERED: MIDAZOLAM HCL 50 MG/100 ML RTUINJ IV ONE (11:53)
[2017-04-04] MEDS: MIDAZOLAM HCL 50 MG/100 ML RTUINJ IV PRN (13:12)
[2017-04-04 17:21] LABS: HEMATOCRIT 25.8 % (36.0-47.0); HEMOGLOBIN 8.3 g/dL (12.0-15.5); MEAN CORPUSCULAR HEMOGLOBIN 28.4 pg (27.0-33.4); MEAN CORPUSCULAR HGB CONC 32.1 g/dL (32.0-36.0); MEAN CORPUSCULAR VOLUME 89 fl (80-97); PLATELET COUNT 511 10^3/uL (150-450); RED BLOOD COUNT 2.91 10^6/uL (3.72-5.28); RED CELL DISTRIBUTION WIDTH 16.6 % (11.5-14.0); WHITE BLOOD COUNT 7.6 10^3/uL (4.0-10.5)
[2017-04-04 18:50] LABS: ABSOLUTE LYMPHOCYTES# (MANUAL) 0.5 10^3/uL (0.5-4.7); ABSOLUTE MONOCYTES # (MANUAL) 0.5 10^3/uL (0.1-1.4); ABSOLUTE NEUTROPHILS# (MANUAL) 6.6 10^3/uL (1.7-8.2); BASOPHILS % (MANUAL) 0 % (0-2); EOSINOPHILS % (MANUAL) 0 % (0-6); LYMPHOCYTES % (MANUAL) 7 % (13-45); METAMYELOCYTES % (MANUAL) 1 % (0); MONOCYTES % (MANUAL) 6 % (3-13); NUCLEATED RED BLOOD CELLS 2 /100 WBC (0); SEGMENTED NEUTROPHILS % (MAN) 86 % (42-78); TOTAL CELLS COUNTED 100
[2017-04-04 18:51] LABS: PLATELET COMMENT INCREASED
[2017-04-04 18:52] LABS: ANISOCYTOSIS SLIGHT; OVALOCYTES SLIGHT; POIKILOCYTOSIS SLIGHT; POLYCHROMASIA SLIGHT; SCHISTOCYTES SLIGHT; TARGET CELLS SLIGHT
[2017-04-04] MEDS ORDERED: INFLUENZA ADLT QUAD (36MOS+) 2017-18 VAC 0.5 ML SYR IM PRN (19:50)
[2017-04-04] MEDS: INSULIN LISPRO 100 UNIT/ML 3 ML VIAL SUBCUT PRN (23:42)
[2017-04-05] MEDS: PROPOFOL 100 ML IV PRN ×4 (05:05→21:09)
[2017-04-05] MEDS: PIPERACILLIN SODIUM/TAZOBACTAM 3.375 GM in NORMAL SALINE 100 ML IV SCH (05:05)
[2017-04-05] MEDS: LINEZOLID 300 ML IV SCH ×2 (05:05→19:23)
[2017-04-05] MEDS: DIPHENHYDRAMINE HCL 50 MG/ML VIAL IV SCH (05:06)
[2017-04-05] MEDS: LANSOPRAZOLE 30 MG TAB.RAP.DR PO SCH (05:06)
[2017-04-05] MEDS: FUROSEMIDE INJ/PF 20 MG/2 ML SDV IV SCH (05:07)
[2017-04-05] MEDS: METHYLPREDNISOLONE INJ 40 MG/1 ML SDV IV SCH ×3 (05:07→21:09)
[2017-04-05] MEDS: INSULIN LISPRO 100 UNIT/ML 3 ML VIAL SUBCUT PRN (05:30)
[2017-04-05 06:11] LABS: ABSOLUTE LYMPHOCYTES (AUTO) 0.8 10^3/uL (0.5-4.7); ABSOLUTE MONOCYTES (AUTO) 0.7 10^3/uL (0.1-1.4); ABSOLUTE NEUT (AUTO) 7.5 10^3/uL (1.7-8.2); BASOPHILS % (AUTO) 0.2 % (0-2); HEMATOCRIT 25.6 % (36.0-47.0); HEMOGLOBIN 8.3 g/dL (12.0-15.5); LYMPHOCYTES % (AUTO) 8.9 % (13-45); MEAN CORPUSCULAR HEMOGLOBIN 28.1 pg (27.0-33.4); MEAN CORPUSCULAR HGB CONC 32.3 g/dL (32.0-36.0); MEAN CORPUSCULAR VOLUME 87 fl (80-97); MONOCYTES % (AUTO) 8.2 % (3-13); PLATELET COUNT 496 10^3/uL (150-450); RED BLOOD COUNT 2.93 10^6/uL (3.72-5.28); RED CELL DISTRIBUTION WIDTH 16.6 % (11.5-14.0); SEGMENTED NEUTROPHILS % (AUTO) 82.7 % (42-78); TOTAL CELLS COUNTED % (AUTO) 100 %
[2017-04-05 06:20] LABS: ARTERIAL BLOOD BASE EXCESS 8.8 mmol/L; ARTERIAL BLOOD H2CO3 1.82 mmol/L (1.05-1.35); ARTERIAL BLOOD HCO3 35.2 mmol/L (20-26); ARTERIAL BLOOD O2 SATURATION 96.5 % (94-98); ARTERIAL BLOOD PCO2 60.5 mmHg (35-45); ARTERIAL BLOOD PH 7.38 (7.35-7.45); ARTERIAL BLOOD PO2 90.1 mmHg (80-100); ARTERIAL BLOOD TOTAL CO2 37.1 mmol/L (21-25)
[2017-04-05 06:28] LABS: ARTERIAL BLOOD FIO2 60%
[2017-04-05 06:30] LABS: ANION GAP 9 (5-19); BLOOD UREA NITROGEN 15 mg/dL (7-20); CALCIUM 7.7 mg/dL (8.4-10.2); CARBON DIOXIDE 33 mmol/L (22-30); CHLORIDE 103 mmol/L (98-107); GLUCOSE 189 mg/dL (75-110); MAGNESIUM 1.7 mg/dL (1.6-2.3); POTASSIUM 3.6 mmol/L (3.6-5.0); SODIUM 145.2 mmol/L (137-145)
[2017-04-05 06:32] LABS: WHITE BLOOD COUNT 9.1 10^3/uL (4.0-10.5)
--- NOTE | 2017-04-05 07:11 | RADIOLOGY REPORT (SQ) ---
EXAM DESCRIPTION: CHEST SINGLE VIEW CLINICAL HISTORY: resp failure COMPARISON: 04/03/2017 FINDINGS: Single frontal view of the chest. Endotracheal tube with tip below the clavicles. NG tube with tip below the diaphragm. Right IJ central venous catheter with tip in the mid right atrium. Leads overlie the chest. Cardiomegaly. Atherosclerotic calcification aortic arch. Hazy left lung and right midlung consolidation. No pneumothorax or large effusion. Elevation the right hemidiaphragm. Postoperative change of the right chest. Leads overlie the chest. No new osseous abnormalities. Upper abdominal soft tissues are unremarkable. IMPRESSION: No significant interval change
--- NOTE | 2017-04-05 08:52 | PDOC PROGRESS REPORT ---
Subjective Subjective:: Unable to obtain since intubated and sedated Reason For Visit: ACUTE RESPIRATORY FAILURE Physical Exam Vital Signs: Temp Pulse Resp BP Pulse Ox 97.6 F 65 11 L 130/68 H 98 04/04/17 11:30 04/04/17 11:30 04/05/17 06:01 04/05/17 06:01 04/05/17 06:01 Intake & Output 04/04/17 04/05/17 04/06/17 06:59 06:59 06:59 Intake Total 300 5380 Output Total 1300 2350 Balance -1000 3030 General appearance: PRESENT: other - sedated Head exam: PRESENT: atraumatic, normocephalic Eye exam: PRESENT: EOMI, PERRLA Ear exam: PRESENT: TM's normal bilaterally Mouth exam: PRESENT: moist, neck supple Neck exam: PRESENT: full ROM. ABSENT: JVD Respiratory exam: PRESENT: clear to auscultation quinten Cardiovascular exam: PRESENT: diastolic murmur, RRR, systolic murmur Vascular exam: PRESENT: normal capillary refill GI/Abdominal exam: PRESENT: normal bowel sounds, soft Extremities exam: PRESENT: other - moving extremeties. ABSENT: joint swelling, pedal edema Neurological exam: PRESENT: other - sedated Results Laboratory Results: 04/05/17 05:27 04/05/17 05:27 04/04/17 04/04/17 04/04/17 05:25 09:00 11:50 WBC 7.6 RBC 2.91 L Hgb 8.3 L Hct 25.8 L MCV 89 MCH 28.4 MCHC 32.1 RDW 16.6 H Plt Count 511 H Seg Neutrophils % Not Reportable Lymphocytes % Not Reportable Monocytes % Not Reportable Eosinophils % Not Reportable Basophils % Not Reportable Absolute Neutrophils Not Reportable Absolute Lymphocytes Not Reportable Absolute Monocytes Not Reportable Absolute Eosinophils Not Reportable Absolute Basophils Not Reportable Carbonic Acid 1.71 H HCO3/H2CO3 Ratio 20:1 ABG pH 7.41 ABG pCO2 56.9 H ABG pO2 67.9 L ABG HCO3 35.0 H ABG O2 Saturation 93.2 L ABG Base Excess 9.2 FiO2 60% Sodium Potassium Chloride Carbon Dioxide Anion Gap BUN Creatinine Est GFR ( Amer) Est GFR (Non-Af Amer) Glucose Calcium Magnesium Transferrin 226 04/05/17 04/05/1718 05:27 05:27 05:27 WBC 9.1 RBC 2.93 L Hgb 8.3 L Hct 25.6 L MCV 87 MCH 28.1 MCHC 32.3 RDW 16.6 H Plt Count 496 H Seg Neutrophils % 82.7 H Lymphocytes % 8.9 L Monocytes % 8.2 Eosinophils % 0.0 Basophils % 0.2 Absolute Neutrophils 7.5 Absolute Lymphocytes 0.8 Absolute Monocytes 0.7 Absolute Eosinophils 0.0 Absolute Basophils 0.0 Carbonic Acid 1.82 H HCO3/H2CO3 Ratio 19:1 ABG pH 7.38 ABG pCO2 60.5 H ABG pO2 90.1 ABG HCO3 35.2 H ABG O2 Saturation 96.5 ABG Base Excess 8.8 FiO2 60% Sodium 145.2 H Potassium 3.6 Chloride 103 Carbon Dioxide 33 H Anion Gap 9 BUN 15 Creatinine 0.61 Est GFR ( Amer) > 60 Est GFR (Non-Af Amer) > 60 Glucose 189 H Calcium 7.7 L Magnesium 1.7 Transferrin 04/03/17 04/03/17 17:30 21:05 Troponin I 0.039 0.029 Impressions: KUB X-Ray 04/03/17 15:27 IMPRESSION: Nasogastric tube tip and side port in the stomach Chest X-Ray 04/05/17 06:00 IMPRESSION: No significant interval change Assessment & Plan - Diagnosis (1) Acute respiratory failure Qualifiers: Respiratory failure complication: hypoxia Qualified Code(s): J96.01 - Acute respiratory failure with hypoxia Is this a current diagnosis for this admission?: Yes Plan: Likely due to pneumonic process. Do not believe that the angioedema is the precipitant factor of hypoxemia. Dr Epps to assisting in weaning off ventilator. Discussed with Dr Epps. Discontinue versed (2) Anemia requiring transfusions Is this a current diagnosis for this admission?: Yes Plan: Improved after blood transfusions. Trend (3) Angioedema Qualifiers: Encounter type: initial encounter Qualified Code(s): T78.3XXA - Angioneurotic edema, initial encounter Is this a current diagnosis for this admission?: Yes Plan: Patient is on Januvia which may had caused angioedema. Resolved. Discontinue benadul and decrease solumedrol (4) Pneumonia Qualifiers: Pneumonia type: due to unspecified organism Laterality: unspecified laterality Lung location: unspecified part of lung Qualified Code(s): J18.9 - Pneumonia, unspecified organism Is this a current diagnosis for this admission?: Yes Plan: Continue current treatment - Time Time Spent with patient: 15-24 minutes Medications reviewed and adjusted accordingly: Yes Anticipated discharge: SNF Within: within 72 hours - Inpatient Certification Based on my medical assessment, after consideration of the patient's comorbidities, presenting symptoms, or acuity I expect that the services needed warrant INPATIENT care.: Yes I certify that my determination is in accordance with my understanding of Medicare's requirements for reasonable and necessary INPATIENT services [42 CFR 412.3e].: Yes Medical Necessity: Need Close Monitoring Due to Risk of Patient Decompensation, Need For Continuous Telemetry Monitoring, Need for Nebulizer Therapy and Monitoring of Response - ventilatory support
[2017-04-05] MEDS: PANTOPRAZOLE SODIUM 40 MG VIAL IV SCH (09:29)
[2017-04-05] MEDS: DOCUSATE SODIUM 100 MG CAPSULE PO SCH (09:30)
[2017-04-05] MEDS ORDERED: OXYCODONE-ACETAMINOPHEN 5-325 MG TABLET NG PRN (13:00)
[2017-04-05] MEDS ORDERED: DEXTROSE 40% GEL 15 GM TUBE NG PRN ×2 (13:00)
[2017-04-05] MEDS ORDERED: ONDANSETRON HCL INJ/PF 4 MG/2 ML SDV IV PRN (13:30)
--- NOTE | 2017-04-05 14:19 | RADIOLOGY REPORT (SQ) ---
EXAM DESCRIPTION: KUB/ABDOMEN (SINGLE VIEW) COMPLETED DATE/TIME: 04/05/2017 2:12 pm REASON FOR STUDY: Confirm OGT placement COMPARISON: 04/03/2017. NUMBER OF VIEWS: One view. TECHNIQUE: Supine radiographic image of the abdomen acquired. LIMITATIONS: None. FINDINGS: BOWEL GAS PATTERN: Normal bowel gas pattern. No dilated loops. CALCIFICATIONS: No suspicious calcifications. SOFT TISSUES: No gross mass or suggestion of organomegaly. HARDWARE: Nasogastric tube with the tip in the stomach. BONES: No acute fracture. No worrisome bone lesions. OTHER: No other significant finding. IMPRESSION: SATISFACTORY POSITION OF THE NASOGASTRIC TUBE. NO RADIOGRAPHIC EVIDENCE FOR ACUTE ABDOM INAL DISEASE. TECHNICAL DOCUMENTATION: JOB ID: [id number] [employer]- All Rights Reserved
[2017-04-05 14:29] LABS: ARTERIAL BLOOD BASE EXCESS 9.8 mmol/L; ARTERIAL BLOOD H2CO3 1.54 mmol/L (1.05-1.35); ARTERIAL BLOOD O2 SATURATION 97.7 % (94-98); ARTERIAL BLOOD PCO2 51.3 mmHg (35-45); ARTERIAL BLOOD PH 7.45 (7.35-7.45); ARTERIAL BLOOD PO2 99.3 mmHg (80-100); ARTERIAL BLOOD TOTAL CO2 36.6 mmol/L (21-25)
[2017-04-05 14:30] LABS: ARTERIAL BLOOD FIO2 60%
[2017-04-05] MEDS: LANSOPRAZOLE 30 MG TAB.RAP.DR NG SCH (18:10)
[2017-04-05] MEDS: LEVOFLOXACIN 750 MG/D5W RTU 750 MG/150 ML RTUPB IV SCH (18:14)
--- NOTE | 2017-04-05 18:48 | Physician Advisory Note ---
Physician Advisor ProgressNote .: Pursuant to the plan for [facility], I have reviewed the medical record for this patient. Physician Advisor Statement: Please consider documenting, if you agree: 1. "Pneumonia, due to [gram neg? gram positive? ...], evidenced by fever, infiltrates on CXR, Ac Resp Failure, . - Did she have any other sx you can gather & document, such as SOB, cough, sputum, pleuritic CP, ...? Or "unable to determine due to dementia"? 2. "Acute Resp Failure due to PNEUMONIA" (otherwise, subcontracts manager will likely have to query to find out what is meant by "pneumonic process") 3. "Acute Hypernatremia, suspect due to " [intravascular volume depletion?, ...] 4. "Anemia of chronic blood loss from chronic GI bleeding of unknown source" vs "Anemia of acute on chronic blood loss from chronic GI bleeding of unknown source" [if you suspect her last H/H were significantly better than her initial set this admission, even tho' likely still low] Thanks for your help! CK
--- NOTE | 2017-04-05 19:01 | XCELERA REPORT ---
[address] [address] Transthoracic Echocardiogram Report Name: PHYLLIS BARRERA Age: 86 yrs Gender: Female : 1930 Patient Status: Inpatient Patient Location: [place] [address]^A Study Date: 04/05/2017 08:59 AM Height: 66 in Weight: 188 lb BSA: 1.9 m2 Procedure: A complete two-dimensional transthoracic echocardiogram was performed (2D, M-mode, spectral and color flow Doppler). The study was technically difficult with many images being suboptimal in quality. Reason For Study: possible chf Ordering Physician: JEFFY SCHWARTZ Performed By: Florina Abad Interpretation Summary Left ventricular systolic function is borderline reduced. There is mild concentric left ventricular hypertrophy. The left ventricle is grossly normal size. Doppler measurements suggest pseudonormalized left ventricular relaxation, which is associated with grade II/IV or mild to moderate diastolic dysfunction There is borderline global hypokinesis of the left ventricle. The right ventricle is borderline dilated. The right ventricular systolic function is normal. The left atrium is moderately dilated. The right atrium is mildly dilated. There is a mild amount of mitral regurgitation There is no mitral valve stenosis. There is a mild to moderate amount of aortic regurgitation There is mild aortic stenosis There is a mild amount of tricuspid regurgitation There is moderate pulmonary hypertension by echo Right ventricular systolic pressure is estimated to be elevated at 50- 60mmHg. The aortic root is not well visualized. The inferior vena cava appeared dilated and decreased < 50% with respiration (RAP 15-20 mmHg) There is no pericardial effusion. MMode/2D Measurements & Calculations RVDd: 3.3 cm LVIDd: 5.5 cm FS: 28.9 % Ao root diam: 3.1 cm IVSd: 0.89 cm LVIDs: 3.9 cm EDV(Teich): 148.4 ml LVPWd: 0.93 cmESV(Teich): 66.7 ml Ao root area: 7.4 cm2 EF(Teich): 55.0 % LVOT diam: 2.0 cm LVOT area: 3.0 cm2 Doppler Measurements & Calculations MV E max john: MV dec slope: Ao V2 max: AI max john: 135.5 cm/sec 845.6 cm/sec2 218.7 cm/sec 404.5 cm/sec MV A max john: MV dec time: Ao max PG: AI max P.9 cm/sec 0.16 sec 19.1 mmHg 65.4 mmHg MV E/A: 0.94 Ao V2 mean: AI dec slope: 155.2 cm/sec 332.4 cm/sec2 Ao mean PG: AI P1/2t: 10.8 mmHg 356.4 msec Ao V2 VTI: 50.8 cm DIONTE(I,D): 1.3 cm2 DIONTE(V,D): 1.2 cm2 LV V1 max PG: SV(LVOT): 63.8 ml PA V2 max: PI end-d john: 3.0 mmHg 102.2 cm/sec 157.1 cm/sec LV V1 mean PG: PA max P.6 mmHg 4.2 mmHg LV V1 max: 86.8 cm/sec LV V1 mean: 57.0 cm/sec LV V1 VTI: 21.3 cm TR max john: 312.6 cm/sec TR max P.3 mmHg Left Ventricle The left ventricle is grossly normal size. There is mild concentric left ventricular hypertrophy. Left ventricular systolic function is borderline reduced. Doppler measurements suggest pseudonormalized left ventricular relaxation, which is associated with grade II/IV or mild to moderate diastolic dysfunction. There is borderline global hypokinesis of the left ventricle. Right Ventricle The right ventricle is borderline dilated. The right ventricle appears to be hypertrophied. The right ventricular systolic function is normal. Atria The right atrium is mildly dilated. The left atrium is moderately dilated. Interarterial septum not well visualized and not well dopplered. Cannot comment on ASD/PFO presence. Mitral Valve There is mild mitral leaflet calcification. There is moderate mitral annular calcification. There is no mitral valve stenosis. There is a mild amount of mitral regurgitation. Aortic Valve The aortic valve is mildly calcified. There is mild aortic stenosis. There is a mild to moderate amount of aortic regurgitation. Tricuspid Valve The tricuspid valve is not well visualized, but is grossly normal. There is no tricuspid stenosis. There is a mild amount of tricuspid regurgitation. There is moderate pulmonary hypertension by echo. Right ventricular systolic pressure is estimated to be elevated at 50-60mmHg. Pulmonic Valve The pulmonic valve is not well visualized. Great Vessels The aortic root is not well visualized. The inferior vena cava appeared dilated and decreased < 50% with respiration (RAP 15-20 mmHg). Effusions There is no pericardial effusion. : JEFFY SCHWARTZ > Delmy Rubi
[2017-04-06] MEDS: PROPOFOL 100 ML IV PRN ×8 (01:54→23:29)
[2017-04-06] MEDS: INSULIN LISPRO 100 UNIT/ML 3 ML VIAL SUBCUT PRN ×2 (02:14→07:37)
[2017-04-06] MEDS: LINEZOLID 300 ML IV SCH ×2 (05:43→17:13)
[2017-04-06] MEDS: LANSOPRAZOLE 30 MG TAB.RAP.DR NG SCH ×2 (05:44→16:54)
[2017-04-06 06:24] LABS: ARTERIAL BLOOD BASE EXCESS 7.1 mmol/L; ARTERIAL BLOOD FIO2 40%; ARTERIAL BLOOD H2CO3 1.51 mmol/L (1.05-1.35); ARTERIAL BLOOD HCO3 32.3 mmol/L (20-26); ARTERIAL BLOOD O2 SATURATION 93.8 % (94-98); ARTERIAL BLOOD PCO2 50.2 mmHg (35-45); ARTERIAL BLOOD PH 7.43 (7.35-7.45); ARTERIAL BLOOD PO2 68.3 mmHg (80-100); ARTERIAL BLOOD TOTAL CO2 33.9 mmol/L (21-25)
[2017-04-06 06:27] LABS: ABSOLUTE LYMPHOCYTES (AUTO) 0.7 10^3/uL (0.5-4.7); ABSOLUTE MONOCYTES (AUTO) 0.7 10^3/uL (0.1-1.4); ABSOLUTE NEUT (AUTO) 6.7 10^3/uL (1.7-8.2); BASOPHILS % (AUTO) 0.4 % (0-2); HEMOGLOBIN 8.2 g/dL (12.0-15.5); MEAN CORPUSCULAR HEMOGLOBIN 27.8 pg (27.0-33.4); MEAN CORPUSCULAR HGB CONC 31.8 g/dL (32.0-36.0); MEAN CORPUSCULAR VOLUME 88 fl (80-97); MONOCYTES % (AUTO) 8.7 % (3-13); PLATELET COUNT 431 10^3/uL (150-450); RED BLOOD COUNT 2.96 10^6/uL (3.72-5.28); RED CELL DISTRIBUTION WIDTH 16.5 % (11.5-14.0); SEGMENTED NEUTROPHILS % (AUTO) 81.9 % (42-78); TOTAL CELLS COUNTED % (AUTO) 100 %; WHITE BLOOD COUNT 8.2 10^3/uL (4.0-10.5)
[2017-04-06 06:47] LABS: ANION GAP 6 (5-19); BLOOD UREA NITROGEN 14 mg/dL (7-20); CALCIUM 7.6 mg/dL (8.4-10.2); CARBON DIOXIDE 33 mmol/L (22-30); CHLORIDE 104 mmol/L (98-107); GLUCOSE 191 mg/dL (75-110); MAGNESIUM 1.7 mg/dL (1.6-2.3); PHOSPHORUS 2.1 mg/dL (2.5-4.5); POTASSIUM 3.6 mmol/L (3.6-5.0)
--- NOTE | 2017-04-06 07:07 | RADIOLOGY REPORT (SQ) ---
EXAM DESCRIPTION: CHEST SINGLE VIEW CLINICAL HISTORY: resp failure COMPARISON: 04/05/2017 FINDINGS: Single frontal view of the chest. Endotracheal tube with tip below the clavicles. NG tube with tip below the diaphragm. Right IJ central venous catheter with tip in the mid right atrium. Leads overlie the chest. Cardiomegaly. Atherosclerotic calcification aortic arch. Hazy left lung and right midlung consolidation. No pneumothorax or large effusion. Elevation the right hemidiaphragm. Postoperative change of the right chest. Leads overlie the chest. No new osseous abnormalities. Upper abdominal soft tissues are unremarkable. IMPRESSION: No significant interval change
[2017-04-06] MEDS: DEXTROSE 5%-NORMAL SALINE 1,000 ML IV PRN (07:37)
[2017-04-06] MEDS: METHYLPREDNISOLONE INJ 40 MG/1 ML SDV IV SCH (11:13)
[2017-04-06] MEDS: DOCUSATE SODIUM 100 MG CAPSULE PO SCH (11:22)
[2017-04-06] MEDS: LEVOFLOXACIN 750 MG/D5W RTU 750 MG/150 ML RTUPB IV SCH (15:24)
--- NOTE | 2017-04-06 17:08 | PDOC PROGRESS REPORT ---
Subjective Progress Note for:: 04/06/17 Subjective:: Unable to obtain since intubated and sedated Review of systems Unable to obtain since intubated All laboratories and significant diagnostics had been reviewed Reason For Visit: ACUTE RESPIRATORY FAILURE Physical Exam Vital Signs: Temp Pulse Resp BP Pulse Ox 99.0 F 65 12 145/66 H 95 04/06/17 05:31 04/06/17 04:00 04/06/17 06:00 04/06/17 05:02 04/06/17 06:00 Intake & Output 04/05/17 04/06/17 04/07/17 06:59 06:59 06:59 Intake Total 5380 3158 Output Total 2350 1723 Balance 3030 1435 Weight 89.7 kg General appearance: PRESENT: obese Head exam: PRESENT: atraumatic, normocephalic Eye exam: PRESENT: EOMI, PERRLA Ear exam: PRESENT: normal external ear exam Mouth exam: PRESENT: moist, neck supple Neck exam: PRESENT: full ROM. ABSENT: JVD, lymphadenopathy, tenderness Respiratory exam: PRESENT: clear to auscultation quinten Cardiovascular exam: PRESENT: RRR. ABSENT: diastolic murmur, systolic murmur Vascular exam: PRESENT: normal capillary refill GI/Abdominal exam: PRESENT: normal bowel sounds, soft Extremities exam: ABSENT: joint swelling, pedal edema Neurological exam: PRESENT: other - patient is sedated Psychiatric exam: PRESENT: other - sedated Results Laboratory Results: 04/06/17 05:50 04/06/17 05:50 04/05/17 04/06/17 04/06/17 14:15 05:50 05:50 WBC RBC Hgb Hct MCV MCH MCHC RDW Plt Count Seg Neutrophils % Lymphocytes % Monocytes % Eosinophils % Basophils % Absolute Neutrophils Absolute Lymphocytes Absolute Monocytes Absolute Eosinophils Absolute Basophils Carbonic Acid 1.54 H 1.51 H HCO3/H2CO3 Ratio 22:1 21:1 ABG pH 7.45 7.43 ABG pCO2 51.3 H 50.2 H ABG pO2 99.3 68.3 L ABG HCO3 35.0 H 32.3 H ABG O2 Saturation 97.7 93.8 L ABG Base Excess 9.8 7.1 FiO2 60% 40% Sodium 143.0 Potassium 3.6 Chloride 104 Carbon Dioxide 33 H Anion Gap 6 BUN 14 Creatinine 0.49 L Est GFR ( Amer) > 60 Est GFR (Non-Af Amer) > 60 Glucose 191 H Calcium 7.6 L Phosphorus 2.1 L Magnesium 1.7 04/06/17 05:50 WBC 8.2 RBC 2.96 L Hgb 8.2 L Hct 26.0 L MCV 88 MCH 27.8 MCHC 31.8 L RDW 16.5 H Plt Count 431 Seg Neutrophils % 81.9 H Lymphocytes % 9.0 L Monocytes % 8.7 Eosinophils % 0.0 Basophils % 0.4 Absolute Neutrophils 6.7 Absolute Lymphocytes 0.7 Absolute Monocytes 0.7 Absolute Eosinophils 0.0 Absolute Basophils 0.0 Carbonic Acid HCO3/H2CO3 Ratio ABG pH ABG pCO2 ABG pO2 ABG HCO3 ABG O2 Saturation ABG Base Excess FiO2 Sodium Potassium Chloride Carbon Dioxide Anion Gap BUN Creatinine Est GFR ( Amer) Est GFR (Non-Af Amer) Glucose Calcium Phosphorus Magnesium 04/03/17 04/03/17 17:30 21:05 Troponin I 0.039 0.029 Impressions: KUB X-Ray 04/05/17 00:00 IMPRESSION: SATISFACTORY POSITION OF THE NASOGASTRIC TUBE. NO RADIOGRAPHIC EVIDENCE FOR ACUTE ABDOMINAL DISEASE. Chest X-Ray 04/06/17 06:00 IMPRESSION: No significant interval change Assessment & Plan - Diagnosis (1) Acute respiratory failure Qualifiers: Respiratory failure complication: hypoxia Qualified Code(s): J96.01 - Acute respiratory failure with hypoxia Is this a current diagnosis for this admission?: Yes Plan: Likely due to pneumonic process. Do not believe that the angioedema is the precipitant factor of hypoxemia. Dr Epps assisting in weaning off ventilator. (2) Anemia requiring transfusions Is this a current diagnosis for this admission?: Yes Plan: Improved after blood transfusions. Stable (3) Angioedema Qualifiers: Encounter type: initial encounter Qualified Code(s): T78.3XXA - Angioneurotic edema, initial encounter Is this a current diagnosis for this admission?: Yes Plan: Patient is on Januvia which may had caused angioedema. Resolved. (4) Pneumonia Qualifiers: Pneumonia type: due to unspecified organism Laterality: unspecified laterality Lung location: unspecified part of lung Qualified Code(s): J18.9 - Pneumonia, unspecified organism Is this a current diagnosis for this admission?: Yes Plan: Continue current treatment (5) Salmonella Is this a current diagnosis for this admission?: Yes Plan: Continue levaquin (6) C. difficile diarrhea Is this a current diagnosis for this admission?: Yes Plan: Start vancomycin oral (7) Diabetes Qualifiers: Diabetes mellitus type: type 2 Diabetes mellitus complication status: with unspecified complications Diabetes mellitus manager long term care insulin use: without manager long term care use Qualified Code(s): E11.8 - Type 2 diabetes mellitus with unspecified complications Is this a current diagnosis for this admission?: Yes Plan: Continue present management - Time Time Spent with patient: 15-24 minutes Medications reviewed and adjusted accordingly: Yes Anticipated discharge: SNF Within: within 72 hours - Inpatient Certification Based on my medical assessment, after consideration of the patient's comorbidities, presenting symptoms, or acuity I expect that the services needed warrant INPATIENT care.: Yes I certify that my determination is in accordance with my understanding of Medicare's requirements for reasonable and necessary INPATIENT services [42 CFR 412.3e].: Yes Medical Necessity: Need for IV Antibiotics - ventilatory support
[2017-04-06] MEDS: VANCOMYCIN HCL INJ 500 MG VIAL PO SCH (17:57)
[2017-04-06] MEDS ORDERED: FUROSEMIDE INJ/PF 20 MG/2 ML SDV IV SCH ×2 (18:30→19:00)
[2017-04-06] MEDS ORDERED: FUROSEMIDE INJ/PF 20 MG/2 ML SDV IV ONE (19:30)
[2017-04-07] MEDS: VANCOMYCIN HCL INJ 500 MG VIAL PO SCH ×5 (00:05→23:57)
[2017-04-07] MEDS: DEXTROSE 5%-NORMAL SALINE 1,000 ML IV PRN ×2 (00:05→15:29)
[2017-04-07] MEDS: PROPOFOL 100 ML IV PRN ×7 (01:57→23:57)
[2017-04-07] MEDS: FUROSEMIDE INJ/PF 20 MG/2 ML SDV IV SCH ×2 (05:24→17:25)
[2017-04-07] MEDS: LINEZOLID 300 ML IV SCH ×2 (05:25→17:21)
[2017-04-07] MEDS: LANSOPRAZOLE 30 MG TAB.RAP.DR NG SCH ×2 (05:25→17:13)
[2017-04-07 06:17] LABS: ARTERIAL BLOOD BASE EXCESS 8.9 mmol/L; ARTERIAL BLOOD H2CO3 1.39 mmol/L (1.05-1.35); ARTERIAL BLOOD HCO3 33.4 mmol/L (20-26); ARTERIAL BLOOD PCO2 46.1 mmHg (35-45); ARTERIAL BLOOD PH 7.48 (7.35-7.45); ARTERIAL BLOOD PO2 56.4 mmHg (80-100); ARTERIAL BLOOD TOTAL CO2 34.8 mmol/L (21-25)
[2017-04-07 06:18] LABS: ARTERIAL BLOOD FIO2 35%
[2017-04-07 06:28] LABS: ABSOLUTE EOSINOPHILS # (AUTO) 0.1 10^3/uL (0.0-0.6); ABSOLUTE LYMPHOCYTES (AUTO) 1.3 10^3/uL (0.5-4.7); ABSOLUTE MONOCYTES (AUTO) 0.9 10^3/uL (0.1-1.4); ABSOLUTE NEUT (AUTO) 5.8 10^3/uL (1.7-8.2); BASOPHILS % (AUTO) 0.4 % (0-2); EOSINOPHILS % (AUTO) 0.9 % (0-6); HEMATOCRIT 27.1 % (36.0-47.0); HEMOGLOBIN 8.6 g/dL (12.0-15.5); LYMPHOCYTES % (AUTO) 15.9 % (13-45); MAGNESIUM 1.7 mg/dL (1.6-2.3); MEAN CORPUSCULAR HEMOGLOBIN 27.8 pg (27.0-33.4); MEAN CORPUSCULAR HGB CONC 31.8 g/dL (32.0-36.0); MEAN CORPUSCULAR VOLUME 88 fl (80-97); MONOCYTES % (AUTO) 11.6 % (3-13); PHOSPHORUS 1.9 mg/dL (2.5-4.5); PLATELET COUNT 385 10^3/uL (150-450); RED BLOOD COUNT 3.09 10^6/uL (3.72-5.28); RED CELL DISTRIBUTION WIDTH 16.4 % (11.5-14.0); SEGMENTED NEUTROPHILS % (AUTO) 71.2 % (42-78); TOTAL CELLS COUNTED % (AUTO) 100 %; WHITE BLOOD COUNT 8.2 10^3/uL (4.0-10.5)
--- NOTE | 2017-04-07 07:29 | RADIOLOGY REPORT (SQ) ---
EXAM DESCRIPTION: CHEST SINGLE VIEW CLINICAL HISTORY: PNA/respiratory failure COMPARISON: 04/06/2017 FINDINGS: Single frontal view of the chest. Endotracheal tube with tip below the clavicles. NG tube with tip below the diaphragm. Right IJ central venous catheter with tip in the mid right atrium. Leads overlie the chest. Cardiomegaly. Atherosclerotic calcification aortic arch. Hazy left lung and right midlung consolidation. No pneumothorax or large effusion. Elevation the right hemidiaphragm. Postoperative change of the right chest. Leads overlie the chest. No new osseous abnormalities. Upper abdominal soft tissues are unremarkable. IMPRESSION: No significant interval change Electronically signed by: Joseph Khoury 04/07/2017 6:27 AM
[2017-04-07 08:25] LABS: ANION GAP 9 (5-19); BLOOD UREA NITROGEN 12 mg/dL (7-20); CALCIUM 7.8 mg/dL (8.4-10.2); CARBON DIOXIDE 32 mmol/L (22-30); CHLORIDE 105 mmol/L (98-107); GLUCOSE 118 mg/dL (75-110); POTASSIUM 3.2 mmol/L (3.6-5.0); SODIUM 145.7 mmol/L (137-145)
--- NOTE | 2017-04-07 08:35 | PDOC PROGRESS REPORT ---
Subjective Progress Note for:: 04/07/17 Subjective:: Unable to obtain since intubated and sedated Review of systems Unable to obtain since intubated All laboratories and significant diagnostics had been reviewed Reason For Visit: ACUTE RESPIRATORY FAILURE Physical Exam Vital Signs: Temp Pulse Resp BP Pulse Ox 98.8 F 56 L 13 128/50 H 97 04/06/17 18:00 04/07/17 07:30 04/07/17 07:03 04/07/17 07:03 04/07/17 07:03 Intake & Output 04/06/17 04/07/17 04/08/17 06:59 06:59 06:59 Intake Total 3158 1655 Output Total 1723 3330 Balance 1435 -1675 Weight 89.7 kg 89.7 kg General appearance: PRESENT: no acute distress, cooperative, obese Head exam: PRESENT: atraumatic, normocephalic Eye exam: PRESENT: EOMI, PERRLA Mouth exam: PRESENT: moist, neck supple Neck exam: PRESENT: full ROM. ABSENT: JVD, lymphadenopathy Respiratory exam: PRESENT: clear to auscultation quinten Cardiovascular exam: PRESENT: RRR. ABSENT: diastolic murmur, systolic murmur GI/Abdominal exam: PRESENT: normal bowel sounds, soft. ABSENT: tenderness Extremities exam: PRESENT: full ROM. ABSENT: joint swelling Neurological exam: PRESENT: awake Results Laboratory Results: 04/07/17 05:30 04/06/17 05:50 04/07/17 04/07/17 04/07/17 05:30 05:30 05:30 WBC 8.2 RBC 3.09 L Hgb 8.6 L Hct 27.1 L MCV 88 MCH 27.8 MCHC 31.8 L RDW 16.4 H Plt Count 385 Seg Neutrophils % 71.2 Lymphocytes % 15.9 Monocytes % 11.6 Eosinophils % 0.9 Basophils % 0.4 Absolute Neutrophils 5.8 Absolute Lymphocytes 1.3 Absolute Monocytes 0.9 Absolute Eosinophils 0.1 Absolute Basophils 0.0 Carbonic Acid 1.39 H HCO3/H2CO3 Ratio 24:1 ABG pH 7.48 H ABG pCO2 46.1 H ABG pO2 56.4 L ABG HCO3 33.4 H ABG O2 Saturation 91.0 L ABG Base Excess 8.9 FiO2 35% Phosphorus 1.9 L Magnesium 1.7 04/03/17 04/03/17 17:30 21:05 Troponin I 0.039 0.029 Impressions: KUB X-Ray 04/05/17 00:00 IMPRESSION: SATISFACTORY POSITION OF THE NASOGASTRIC TUBE. NO RADIOGRAPHIC EVIDENCE FOR ACUTE ABDOMINAL DISEASE. Chest X-Ray 04/07/17 06:00 IMPRESSION: No significant interval change Assessment & Plan - Diagnosis (1) Acute respiratory failure Qualifiers: Respiratory failure complication: hypoxia Qualified Code(s): J96.01 - Acute respiratory failure with hypoxia Is this a current diagnosis for this admission?: Yes Plan: Likely due to pneumonic process. Do not believe that the angioedema is the precipitant factor of hypoxemia. Dr Epps assisting in weaning off ventilator. (2) Anemia requiring transfusions Is this a current diagnosis for this admission?: Yes Plan: Improved after blood transfusions. Stable (3) Angioedema Qualifiers: Encounter type: initial encounter Qualified Code(s): T78.3XXA - Angioneurotic edema, initial encounter Is this a current diagnosis for this admission?: Yes Plan: Patient is on Januvia which may had caused angioedema. Resolved. (4) Pneumonia Qualifiers: Pneumonia type: due to unspecified organism Laterality: unspecified laterality Lung location: unspecified part of lung Qualified Code(s): J18.9 - Pneumonia, unspecified organism Is this a current diagnosis for this admission?: Yes Plan: Continue current treatment (5) Salmonella Is this a current diagnosis for this admission?: Yes Plan: Continue levaquin (6) C. difficile diarrhea Is this a current diagnosis for this admission?: Yes Plan: Continue vancomycin oral. Add lactobacillus. (7) Diabetes Qualifiers: Diabetes mellitus type: type 2 Diabetes mellitus complication status: with unspecified complications Diabetes mellitus parts counterman insulin use: without longterm use Qualified Code(s): E11.8 - Type 2 diabetes mellitus with unspecified complications Is this a current diagnosis for this admission?: Yes (8) Bacteremia associated with intravascular line Qualifiers: Encounter type: sequela Qualified Code(s): T82.7XXS - Infection and inflammatory reaction due to other cardiac and vascular devices, implants and grafts, sequela; R78.81 - Bacteremia; R78.81 - Bacteremia Is this a current diagnosis for this admission?: Yes Plan: Growing Streptococcus mitis. Continue present treatment. Order blood culture and PICC (9) Pulmonary hypertension Is this a current diagnosis for this admission?: Yes Plan: Conitnue lasix iv - Time Time Spent with patient: 15-24 minutes Medications reviewed and adjusted accordingly: Yes Anticipated discharge: SNF Within: within 72 hours - Inpatient Certification Based on my medical assessment, after consideration of the patient's comorbidities, presenting symptoms, or acuity I expect that the services needed warrant INPATIENT care.: Yes I certify that my determination is in accordance with my understanding of Medicare's requirements for reasonable and necessary INPATIENT services [42 CFR 412.3e].: Yes Medical Necessity: Need Close Monitoring Due to Risk of Patient Decompensation, Need for IV Antibiotics
[2017-04-07] MEDS: LACTOBACILLUS ACIDOPHILUS 250 MG TAB PO SCH ×2 (10:16→17:20)
[2017-04-07] MEDS: DOCUSATE SODIUM 100 MG CAPSULE PO SCH (10:23)
[2017-04-07] MEDS ORDERED: ACETYLCYSTEINE 20% SOLN 800 MG/4 ML VIAL.NEB NEB ONE ×2 (11:30→12:45)
[2017-04-07] MEDS: POTASSI CL 20 MEQ/50 ML RIDER 20 MEQ/50 ML RTUPB IV SCH ×2 (11:53→13:45)
[2017-04-07] MEDS ORDERED: POTASSIUM CHLORIDE 10 MEQ TABLET.SA PO ONE (12:00)
[2017-04-07 13:19] LABS: APPEARANCE,URINE SLIGHTLY-CLOUDY; BILIRUBIN,URINE NEGATIVE (NEGATIVE); COLOR,URINE YELLOW; GLUCOSE, URINE NEGATIVE (NEGATIVE); KETONES,URINE NEGATIVE (NEGATIVE); LEUKOCYTE ESTERASE,URINE SMALL (NEGATIVE); NITRITE,URINE NEGATIVE (NEGATIVE); PROTEIN,URINE 30 mg/dL (NEGATIVE); URIC ACID CRYSTALS,URINE RARE /HPF; URINE SPECIFIC GRAVITY 1.016; UROBILINOGEN,URINE NEGATIVE mg/dL (<2.0)
[2017-04-07] MEDS: LEVOFLOXACIN 750 MG/D5W RTU 750 MG/150 ML RTUPB IV SCH (15:31)
[2017-04-07] MEDS: ACETYLCYSTEINE 20% SOLN 800 MG/4 ML VIAL.NEB NEB SCH (20:35)
[2017-04-07] MEDS: ACETAMINOPHEN SOLN 325 MG/10.15 ML UDCUP NG PRN (22:11)
[2017-04-07] MEDS: INSULIN LISPRO 100 UNIT/ML 3 ML VIAL SUBCUT PRN (23:59)
[2017-04-08] MEDS: PROPOFOL 100 ML IV PRN ×4 (03:29→18:15)
[2017-04-08] MEDS: FUROSEMIDE INJ/PF 20 MG/2 ML SDV IV SCH (05:07)
[2017-04-08] MEDS: LANSOPRAZOLE 30 MG TAB.RAP.DR NG SCH ×2 (05:07→16:20)
[2017-04-08] MEDS: LINEZOLID 300 ML IV SCH ×2 (05:07→18:04)
[2017-04-08] MEDS: VANCOMYCIN HCL INJ 500 MG VIAL PO SCH ×3 (05:09→18:45)
[2017-04-08 05:53] LABS: ARTERIAL BLOOD BASE EXCESS 11.5 mmol/L; ARTERIAL BLOOD H2CO3 1.31 mmol/L (1.05-1.35); ARTERIAL BLOOD HCO3 35.4 mmol/L (20-26); ARTERIAL BLOOD O2 SATURATION 92.5 % (94-98); ARTERIAL BLOOD PCO2 43.4 mmHg (35-45); ARTERIAL BLOOD PH 7.53 (7.35-7.45); ARTERIAL BLOOD PO2 57.4 mmHg (80-100); ARTERIAL BLOOD TOTAL CO2 36.7 mmol/L (21-25)
[2017-04-08 06:04] LABS: ARTERIAL BLOOD FIO2 35%
[2017-04-08 06:27] LABS: ALBUMIN 2.3 g/dL (3.5-5.0); ANION GAP 8 (5-19); BLOOD UREA NITROGEN 9 mg/dL (7-20); CALCIUM 7.6 mg/dL (8.4-10.2); CARBON DIOXIDE 33 mmol/L (22-30); CHLORIDE 98 mmol/L (98-107); GLUCOSE 212 mg/dL (75-110); SODIUM 139.2 mmol/L (137-145)
[2017-04-08 06:28] LABS: ALANINE AMINOTRANSFERASE 28 U/L (9-52); ALKALINE PHOSPHATASE 78 U/L (38-126); ASPARTATE AMINO TRANSFERASE 20 U/L (14-36); BILIRUBIN,DIRECT 0.1 mg/dL (0.0-0.4); BILIRUBIN,TOTAL 0.3 mg/dL (0.2-1.3); TOTAL PROTEIN 4.2 g/dL (6.3-8.2)
[2017-04-08] MEDS: ACETAMINOPHEN SOLN 325 MG/10.15 ML UDCUP NG PRN ×2 (06:38→18:16)
--- NOTE | 2017-04-08 06:41 | RADIOLOGY REPORT (SQ) ---
EXAM DESCRIPTION: CHEST SINGLE VIEW CLINICAL HISTORY: resp failure COMPARISON: FINDINGS: Single frontal view of the chest. Endotracheal tube with tip below the clavicles. NG tube with tip below the diaphragm. Right IJ central venous catheter with tip in the mid right atrium. Leads overlie the chest. Cardiomegaly. Atherosclerotic calcification aortic arch. Hazy left lung and right midlung consolidation. No pneumothorax or large effusion. Elevation the right hemidiaphragm. Postoperative change of the right chest. Leads overlie the chest. No new osseous abnormalities. Upper abdominal soft tissues are unremarkable. IMPRESSION: 1. Overall stable appearance of the chest. Electronically signed by: Joseph Khoury 04/08/2017 5:40 AM TUBE REBUILDER
[2017-04-08 06:43] LABS: POTASSIUM 2.8 mmol/L (3.6-5.0)
[2017-04-08] MEDS ORDERED: POTASSIUM CHLORIDE 20 MEQ/15 ML UDCUP ONE (06:55)
[2017-04-08] MEDS: INSULIN LISPRO 100 UNIT/ML 3 ML VIAL SUBCUT PRN ×2 (06:55→13:02)
[2017-04-08] MEDS ORDERED: POTASSIUM CHLORIDE 20 MEQ/15 ML UDCUP PO ONE (07:00)
[2017-04-08] MEDS ORDERED: POTASSIUM CHLORIDE 10 MEQ TABLET.SA PO SCH ×2 (08:00→10:00)
[2017-04-08] MEDS ORDERED: POTASSIUM CHLORIDE 10 MEQ TABLET.SA PO ONE (08:00)
[2017-04-08] MEDS: ACETYLCYSTEINE 20% SOLN 800 MG/4 ML VIAL.NEB NEB SCH ×2 (08:08→20:45)
[2017-04-08] MEDS: POTASSIUM CHLORIDE 20 MEQ/15 ML UDCUP PO SCH ×3 (09:04→16:20)
[2017-04-08] MEDS: MAGNESIUM OXIDE 400 MG TABLET PO SCH (09:04)
[2017-04-08] MEDS: LACTOBACILLUS ACIDOPHILUS 250 MG TAB PO SCH ×2 (09:04→18:16)
[2017-04-08] MEDS: POTASSI CL 40 MEQ/D5-1/2NS 1L 40 MEQ/1,000 ML RTUINJ IV PRN ×2 (09:05→21:12)
[2017-04-08] MEDS: DOCUSATE SODIUM 100 MG CAPSULE PO SCH (09:23)
[2017-04-08] MEDS ORDERED: INSULIN GLARGINE,HUM.REC.ANLOG 1,000 UNIT/10 ML UNIT SUBCUT SCH (10:00)
--- NOTE | 2017-04-08 10:17 | PDOC PROGRESS REPORT ---
Subjective Progress Note for:: 04/08/17 Subjective:: Unable to obtain since intubated and sedated Review of systems Unable to obtain since intubated All laboratories and significant diagnostics had been reviewed Reason For Visit: ACUTE RESPIRATORY FAILURE Physical Exam Vital Signs: Temp Pulse Resp BP Pulse Ox 99.7 F 66 17 145/47 H 96 04/07/17 12:00 04/07/17 20:00 04/08/17 06:03 04/08/17 06:03 04/08/17 06:03 Intake & Output 04/07/17 04/08/17 04/09/17 06:59 06:59 06:59 Intake Total 1655 2746 Output Total 3330 3995 Balance -2863 -3461 Weight 87.6 kg 86.6 kg General appearance: PRESENT: other - sedated Head exam: PRESENT: atraumatic, normocephalic Eye exam: PRESENT: conjunctiva pink, EOMI, PERRLA Ear exam: PRESENT: normal external ear exam Neck exam: ABSENT: JVD, lymphadenopathy, thyromegaly Respiratory exam: PRESENT: clear to auscultation quinten Cardiovascular exam: PRESENT: RRR. ABSENT: diastolic murmur, systolic murmur Vascular exam: PRESENT: normal capillary refill GI/Abdominal exam: PRESENT: normal bowel sounds, soft Extremities exam: PRESENT: pedal edema. ABSENT: joint swelling Neurological exam: PRESENT: other Psychiatric exam: PRESENT: other - sedated Skin exam: PRESENT: intact, normal color Results Laboratory Results: 04/07/17 05:30 04/08/17 05:30 04/07/17 04/07/17 04/08/17 05:30 12:45 05:30 Carbonic Acid 1.31 HCO3/H2CO3 Ratio 27:1 ABG pH 7.53 H ABG pCO2 43.4 ABG pO2 57.4 L ABG HCO3 35.4 H ABG O2 Saturation 92.5 L ABG Base Excess 11.5 FiO2 35% Sodium 145.7 H Potassium 3.2 L Chloride 105 Carbon Dioxide 32 H Anion Gap 9 BUN 12 Creatinine 0.53 Est GFR ( Amer) > 60 Est GFR (Non-Af Amer) > 60 Glucose 118 H Calcium 7.8 L Total Bilirubin AST ALT Alkaline Phosphatase Total Protein Albumin Urine Color YELLOW Urine Appearance SLIGHTLY-CLOUDY Urine pH 6.0 Ur Specific [place] 1.016 Urine Protein 30 H Urine Glucose (UA) NEGATIVE Urine Ketones NEGATIVE Urine Blood NEGATIVE Urine Nitrite NEGATIVE Ur Leukocyte Esterase SMALL H Urine WBC (Auto) 19 Urine RBC (Auto) 4 04/08/17 05:30 Carbonic Acid HCO3/H2CO3 Ratio ABG pH ABG pCO2 ABG pO2 ABG HCO3 ABG O2 Saturation ABG Base Excess FiO2 Sodium 139.2 Potassium 2.8 L* Chloride 98 Carbon Dioxide 33 H Anion Gap 8 BUN 9 Creatinine 0.53 Est GFR ( Amer) > 60 Est GFR (Non-Af Amer) > 60 Glucose 212 H Calcium 7.6 L Total Bilirubin 0.3 AST 20 ALT 28 Alkaline Phosphatase 78 Total Protein 4.2 L Albumin 2.3 L Urine Color Urine Appearance Urine pH Ur Specific [place] Urine Protein Urine Glucose (UA) Urine Ketones Urine Blood Urine Nitrite Ur Leukocyte Esterase Urine WBC (Auto) Urine RBC (Auto) 04/03/17 04/03/17 17:30 21:05 Troponin I 0.039 0.029 Impressions: KUB X-Ray 04/05/17 00:00 IMPRESSION: SATISFACTORY POSITION OF THE NASOGASTRIC TUBE. NO RADIOGRAPHIC EVIDENCE FOR ACUTE ABDOMINAL DISEASE. Chest X-Ray 04/08/17 06:00 IMPRESSION: 1. Overall stable appearance of the chest. Assessment & Plan - Diagnosis (1) Acute respiratory failure Qualifiers: Respiratory failure complication: hypoxia Qualified Code(s): J96.01 - Acute respiratory failure with hypoxia Is this a current diagnosis for this admission?: Yes Plan: Likely due to pneumonic process. Do not believe that the angioedema is the precipitant factor of hypoxemia. Dr Epps assisting in weaning off ventilator. (2) Anemia requiring transfusions Is this a current diagnosis for this admission?: Yes Plan: Improved after blood transfusions. Stable (3) Angioedema Qualifiers: Encounter type: initial encounter Qualified Code(s): T78.3XXA - Angioneurotic edema, initial encounter Is this a current diagnosis for this admission?: Yes Plan: Patient is on Januvia which may had caused angioedema. Resolved. (4) Pneumonia Qualifiers: Pneumonia type: due to unspecified organism Laterality: unspecified laterality Lung location: unspecified part of lung Qualified Code(s): J18.9 - Pneumonia, unspecified organism Is this a current diagnosis for this admission?: Yes Plan: Continue current treatment. Will order CT of the chest to evaluate persistent right-sided consolidation . To discontinue Levaquin and placed on meropenem (5) Salmonella Is this a current diagnosis for this admission?: Yes Plan: Discontinue Levaquin since patient on broad-spectrum antibiotic and he was sensitive. Order urine culture stat (6) C. difficile diarrhea Is this a current diagnosis for this admission?: Yes Plan: Continue vancomycin oral and lactobacillus. (7) Diabetes Qualifiers: Diabetes mellitus type: type 2 Diabetes mellitus complication status: with unspecified complications Diabetes mellitus rodent exterminator insulin use: without rodent exterminator use Qualified Code(s): E11.8 - Type 2 diabetes mellitus with unspecified complications Is this a current diagnosis for this admission?: Yes Plan: Add Lantus 5 units subcu daily and continue Humalog sliding scale (8) Bacteremia associated with intravascular line Qualifiers: Encounter type: sequela Qualified Code(s): T82.7XXS - Infection and inflammatory reaction due to other cardiac and vascular devices, implants and grafts, sequela; R78.81 - Bacteremia; R78.81 - Bacteremia Is this a current diagnosis for this admission?: Yes Plan: Growing Streptococcus mitis. Continue present treatment. Patient still with intravascular line inserted in emergency room since PICC line services not available. Blood cultures so far negative (9) Pulmonary hypertension Is this a current diagnosis for this admission?: Yes Plan: Will discontinue Lasix IV (10) Hypokalemia Is this a current diagnosis for this admission?: Yes Plan: Replace via GI tract and trend - Time Time Spent with patient: 15-24 minutes Medications reviewed and adjusted accordingly: Yes Anticipated discharge: SNF Within: Other - Still unable to determine when patient may be able to be ready for discharge would likely will require rehab - Inpatient Certification Based on my medical assessment, after consideration of the patient's comorbidities, presenting symptoms, or acuity I expect that the services needed warrant INPATIENT care.: Yes I certify that my determination is in accordance with my understanding of Medicare's requirements for reasonable and necessary INPATIENT services [42 CFR 412.3e].: Yes Medical Necessity: Need for Nebulizer Therapy and Monitoring of Response, Need for IV Antibiotics - ventilatory support
[2017-04-08 11:26] LABS: ABSOLUTE BASOPHILS # (AUTO) 0.1 10^3/uL (0.0-0.2); ABSOLUTE NEUT (AUTO) 7.6 10^3/uL (1.7-8.2); BASOPHILS % (AUTO) 0.6 % (0-2); EOSINOPHILS % (AUTO) 0.4 % (0-6); HEMATOCRIT 29.4 % (36.0-47.0); HEMOGLOBIN 9.3 g/dL (12.0-15.5); LYMPHOCYTES % (AUTO) 10.3 % (13-45); MEAN CORPUSCULAR HEMOGLOBIN 27.4 pg (27.0-33.4); MEAN CORPUSCULAR HGB CONC 31.7 g/dL (32.0-36.0); MEAN CORPUSCULAR VOLUME 86 fl (80-97); MONOCYTES % (AUTO) 10.2 % (3-13); PLATELET COUNT 347 10^3/uL (150-450); RED BLOOD COUNT 3.41 10^6/uL (3.72-5.28); RED CELL DISTRIBUTION WIDTH 16.4 % (11.5-14.0); SEGMENTED NEUTROPHILS % (AUTO) 78.5 % (42-78); TOTAL CELLS COUNTED % (AUTO) 100 %; WHITE BLOOD COUNT 9.6 10^3/uL (4.0-10.5)
[2017-04-08] MEDS ORDERED: MEROPENEM 500 MG in NORMAL SALINE 50 ML IV ONE (11:30)
[2017-04-08] MEDS ORDERED: MEROPENEM 1 GM in NORMAL SALINE 50 ML IV ONE (11:30)
[2017-04-08 11:44] LABS: ANION GAP 5 (5-19); BLOOD UREA NITROGEN 8 mg/dL (7-20); CALCIUM 7.7 mg/dL (8.4-10.2); CARBON DIOXIDE 35 mmol/L (22-30); CHLORIDE 99 mmol/L (98-107); GLUCOSE 210 mg/dL (75-110); MAGNESIUM 1.5 mg/dL (1.6-2.3)
[2017-04-08 11:49] LABS: POTASSIUM 3.8 mmol/L (3.6-5.0)
[2017-04-08] MEDS: IPRATROPIUM/ALBUTEROL 0.5-2.5 MG/3 ML AMPUL NEB SCH ×2 (13:59→20:45)
--- NOTE | 2017-04-08 14:01 | RADIOLOGY REPORT (SQ) ---
EXAM DESCRIPTION: CT CHEST WITH COMPLETED DATE/TIME: 04/08/2017 1:20 pm REASON FOR STUDY: evaluate right lung consolidation-persistant COMPARISON: None. TECHNIQUE: CT scan of the chest performed using helical scanning technique with dynamic intravenous contrast injection. Images reviewed with lung, soft tissue and bone windows. Reconstructed coronal and sagittal MPR images reviewed. All images stored on PACS. All CT scanners at this facility use dose modulation, iterative reconstruction, and/or weight based d osing when appropriate to reduce radiation dose to as low as reasonably achievable (ALARA). [facility]: Dose Right [facility]: CareDose [facility]: Dose Right [facility]: Teradose 4D [facility]: Lucky Ant CONTRAST TYPE AND DOSE: contrast/concentration: Isovue 370.00 mg/ml; Total Contrast Delivered: 80.0 ml; Total Saline Delivered: 55.0 ml RENAL FUNCTION: Creatinine 0.53. RADIATION DOSE: CT Rad equipment meets quality standard of care and radiation dose reduction techniq ues were employed. CTDIvol: 16.2 mGy. DLP: 512 mGy-cm. . LIMITATIONS: Respiratory motion limits evaluation. FINDINGS: LUNGS AND PLEURA:There is evidence of ground-glass type infiltrate noted in the perihilar regions ,right greater than left, with small bibasilar pleural effusions and associated bibasilar ate lectasis. HILAR AND MEDIASTINAL STRUCTURES: No adenopathy seen. HEART AND VASCULAR STRUCTURES: Coronary artery calcification. No pericardial effusion. TRACHEOBRONCHIAL TREE; secretions are noted layering along the posterior wall of the trachea above th e stanislav. PULMONARY ARTERIES: No evidence of central pulmonary artery emboli. THORACIC AORTA: Atherosclerotic change noted. Changes of a bovine arch with tortuosity of brachioce phalic vessels. Atherosclerotic change noted within proximal right subclavian artery. UPPER ABDOMEN: Postcholecystectomy. Hepatic and splenic granuloma. THYROID AND OTHER SOFT TISSUES: No masses. No adenopathy. BONES: Dorsal spondylosis and scoliosis. OTHER: Endotracheal tube above stanislav. Feeding tube has finger stomach. Right IJ lumen extending to the SVC. Soft tissue edema noted. IMPRESSION: Changes consistent with bilateral perihilar infiltrates basilar atelectasis with small e ffusions. TECHNICAL DOCUMENTATION: JOB ID: [id number] Quality ID # [id number]: Final reports with documentation of one or more dose reduction techniques (e.g., Au tomated exposure control, adjustment of the mA and/or kV according to patient size, use of iterative reconstruction technique) 2010 [employer]- All Rights Reserved
[2017-04-08] MEDS: MEROPENEM 500 MG in NORMAL SALINE 50 ML IV SCH (18:03)
[2017-04-09] MEDS: VANCOMYCIN HCL INJ 500 MG VIAL PO SCH ×5 (00:02→23:22)
[2017-04-09] MEDS: ACETAMINOPHEN SOLN 325 MG/10.15 ML UDCUP NG PRN (00:14)
[2017-04-09] MEDS: INSULIN LISPRO 100 UNIT/ML 3 ML VIAL SUBCUT PRN (00:15)
[2017-04-09] MEDS: MEROPENEM 500 MG in NORMAL SALINE 50 ML IV SCH ×3 (01:06→18:32)
[2017-04-09] MEDS: PROPOFOL 100 ML IV PRN ×2 (01:14→10:27)
[2017-04-09] MEDS: IPRATROPIUM/ALBUTEROL 0.5-2.5 MG/3 ML AMPUL NEB SCH ×4 (02:23→19:45)
[2017-04-09 04:22] LABS: ABSOLUTE BASOPHILS # (AUTO) 0.1 10^3/uL (0.0-0.2); ABSOLUTE LYMPHOCYTES (AUTO) 1.3 10^3/uL (0.5-4.7); ABSOLUTE MONOCYTES (AUTO) 1.2 10^3/uL (0.1-1.4); ABSOLUTE NEUT (AUTO) 9.7 10^3/uL (1.7-8.2); BASOPHILS % (AUTO) 0.7 % (0-2); EOSINOPHILS % (AUTO) 0.1 % (0-6); HEMATOCRIT 26.4 % (36.0-47.0); HEMOGLOBIN 8.3 g/dL (12.0-15.5); LYMPHOCYTES % (AUTO) 10.7 % (13-45); MEAN CORPUSCULAR HEMOGLOBIN 27.2 pg (27.0-33.4); MEAN CORPUSCULAR HGB CONC 31.4 g/dL (32.0-36.0); MEAN CORPUSCULAR VOLUME 87 fl (80-97); MONOCYTES % (AUTO) 9.8 % (3-13); PLATELET COUNT 278 10^3/uL (150-450); RED BLOOD COUNT 3.06 10^6/uL (3.72-5.28); RED CELL DISTRIBUTION WIDTH 16.5 % (11.5-14.0); SEGMENTED NEUTROPHILS % (AUTO) 78.7 % (42-78); TOTAL CELLS COUNTED % (AUTO) 100 %; WHITE BLOOD COUNT 12.3 10^3/uL (4.0-10.5)
[2017-04-09 04:27] LABS: ARTERIAL BLOOD BASE EXCESS 6.1 mmol/L; ARTERIAL BLOOD H2CO3 1.18 mmol/L (1.05-1.35); ARTERIAL BLOOD HCO3 29.7 mmol/L (20-26); ARTERIAL BLOOD O2 SATURATION 94.2 % (94-98); ARTERIAL BLOOD PCO2 39.1 mmHg (35-45); ARTERIAL BLOOD PO2 64.4 mmHg (80-100); ARTERIAL BLOOD TOTAL CO2 30.9 mmol/L (21-25)
[2017-04-09 04:29] LABS: ARTERIAL BLOOD FIO2 30%
[2017-04-09 04:37] LABS: ALANINE AMINOTRANSFERASE 22 U/L (9-52); ALBUMIN 2.2 g/dL (3.5-5.0); ALKALINE PHOSPHATASE 76 U/L (38-126); ANION GAP 7 (5-19); ASPARTATE AMINO TRANSFERASE 24 U/L (14-36); BILIRUBIN,DIRECT 0.2 mg/dL (0.0-0.4); BILIRUBIN,TOTAL 0.3 mg/dL (0.2-1.3); BLOOD UREA NITROGEN 8 mg/dL (7-20); CALCIUM 7.4 mg/dL (8.4-10.2); CARBON DIOXIDE 31 mmol/L (22-30); CHLORIDE 101 mmol/L (98-107); GLUCOSE 183 mg/dL (75-110); MAGNESIUM 1.5 mg/dL (1.6-2.3); POTASSIUM 4.3 mmol/L (3.6-5.0); SODIUM 138.8 mmol/L (137-145); TOTAL PROTEIN 4.3 g/dL (6.3-8.2)
[2017-04-09] MEDS: POTASSI CL 40 MEQ/D5-1/2NS 1L 40 MEQ/1,000 ML RTUINJ IV PRN ×2 (06:46→18:36)
[2017-04-09] MEDS: LINEZOLID 300 ML IV SCH ×2 (06:47→18:31)
[2017-04-09] MEDS: LANSOPRAZOLE 30 MG TAB.RAP.DR NG SCH ×2 (06:47→16:40)
[2017-04-09] MEDS: ACETYLCYSTEINE 20% SOLN 800 MG/4 ML VIAL.NEB NEB SCH ×2 (08:12→19:45)
[2017-04-09] MEDS ORDERED: INSULIN GLARGINE,HUM.REC.ANLOG 1,000 UNIT/10 ML UNIT SUBCUT SCH ×2 (10:00)
--- NOTE | 2017-04-09 10:17 | RADIOLOGY REPORT (SQ) ---
EXAM DESCRIPTION: PICC INSERTION; U/S GUIDE FOR VASCULAR ACCESS COMPLETED DATE/TIME: 04/09/2017 9:28 am REASON FOR STUDY: poor iv access/bacteremia due to line; POOR IV ACCESS COMPARISON: None. FLUOROSCOPY TIME: None. 2 images saved to PACS. TECHNIQUE: Ultrasound and plain film guided PICC placement. LIMITATIONS: None. PROCEDURE: After written consent and assessment were obtained, the patient was brought into the fluo roscopy room and place supine on the table. Ultrasound was used on the patient's right arm for PICC access. The right arm was prepped and draped in a sterile fashion along with the ultrasound probe. Th e entry site was anesthetized with 1% lidocaine. A 21 gauge 7 cm needle was advanced through the skin and into the basilic vein under live ultrasound guidance. An ultrasound image was saved to PACS con firming access site. A .018 guide wire was then inserted through the needle and into the venous syst em. The needle was the removed and an 11 blade scalpel was used to make a 1cm skin incision. A 5 fr peel-away sheath was advanced over the wire and into the venous system. A measurement was then made u sing the existing wire and live fluoroscopic guidance. The wire was then removed and the trimmed. The PICC was advanced through the peel-away sheath and into the venous system. The peel-away sheath was removed and the catheter was adhered to the patients arm with a stat lock. The catheter was then aspi rated and flushed and a sterile bandage was placed over the access site. A fluoroscopic spot image w as saved to PACS confirming the catheter tip within the superior vena cava. IMPRESSION: SUCCESSFUL PLACEMENT OF A 5 FR DUAL LUMEN 37 CM PICC IN THE RIGHT BASILIC VEIN. COMMENT: Patient medication list reviewed: Yes- Quality ID# [id number]:Eligible professional attests to doc umenting in the medical record they obtained, updated, or reviewed the patient's current medications. . Quality ID 145: Final reports for procedures using fluoroscopy that document radiation exposure alexis pino, or exposure time and number of fluorographic images (if radiation exposure indices are not avail able) Quality ID #76: The patient was prepped and draped using maximum sterile barrier technique including cap, mask, sterile gown, sterile gloves, a large sterile sheet, hand hygiene, and 2% Chlorhexidine fo r cutaneous antisepsis. When ultrasound is used, sterile ultrasound techniques are followed requiring sterile gel and sterile probes. TECHNICAL DOCUMENTATION: JOB ID: [id number] [employer]- All Rights Reserved
[2017-04-09] MEDS ORDERED: NORMAL SALINE 10 ML SDV (AFTER EACH USE) IV PRN (10:45)
[2017-04-09] MEDS: RIFAXIMIN 200 MG TABLET PO SCH ×3 (10:52→17:39)
[2017-04-09] MEDS: MAGNESIUM OXIDE 400 MG TABLET PO SCH (10:57)
[2017-04-09] MEDS: LACTOBACILLUS ACIDOPHILUS 250 MG TAB PO SCH ×2 (10:57→17:39)
[2017-04-09] MEDS: INSULIN GLARGINE,HUM.REC.ANLOG 300 UNIT/3 ML INSULN.PEN SUBCUT SCH (11:01)
[2017-04-09] MEDS: DOCUSATE SODIUM 100 MG CAPSULE PO SCH (11:02)
[2017-04-09] MEDS: MAGNESIUM SULFATE/D5W 1 GM/100 ML RTUPB IV SCH ×3 (11:25→16:40)
--- NOTE | 2017-04-09 12:05 | PDOC PROGRESS REPORT ---
Subjective Progress Note for:: 04/09/17 Subjective:: Unable to obtain since intubated and sedated Review of systems Unable to obtain since intubated All laboratories and significant diagnostics had been reviewed Reason For Visit: ACUTE RESPIRATORY FAILURE Physical Exam Vital Signs: Temp Pulse Resp BP Pulse Ox 99.5 F 91 20 135/53 H 95 04/09/17 10:00 04/09/17 10:00 04/09/17 11:04 04/09/17 11:04 04/09/17 11:04 Intake & Output 04/08/17 04/09/17 04/10/17 06:59 06:59 06:59 Intake Total 2746 2388 Output Total 3995 2095 225 Balance -1249 293 -225 Weight 86.6 kg 87.5 kg General appearance: PRESENT: no acute distress, cooperative Head exam: PRESENT: atraumatic, normocephalic Eye exam: PRESENT: EOMI, PERRLA Ear exam: PRESENT: normal external ear exam Mouth exam: PRESENT: moist, neck supple Neck exam: ABSENT: JVD, lymphadenopathy Respiratory exam: PRESENT: rhonchi. ABSENT: tachypnea Cardiovascular exam: PRESENT: RRR. ABSENT: diastolic murmur, systolic murmur Vascular exam: PRESENT: normal capillary refill GI/Abdominal exam: PRESENT: normal bowel sounds, soft. ABSENT: tenderness Extremities exam: ABSENT: joint swelling, pedal edema Musculoskeletal exam: ABSENT: ambulatory Neurological exam: PRESENT: other - sedated Skin exam: PRESENT: intact, normal color Results Laboratory Results: 04/09/17 04:10 04/09/17 04:10 04/09/17 04/09/17 04/09/17 04:10 04:10 04:10 WBC 12.3 H RBC 3.06 L Hgb 8.3 L Hct 26.4 L MCV 87 MCH 27.2 MCHC 31.4 L RDW 16.5 H Plt Count 278 Seg Neutrophils % 78.7 H Lymphocytes % 10.7 L Monocytes % 9.8 Eosinophils % 0.1 Basophils % 0.7 Absolute Neutrophils 9.7 H Absolute Lymphocytes 1.3 Absolute Monocytes 1.2 Absolute Eosinophils 0.0 Absolute Basophils 0.1 Carbonic Acid 1.18 HCO3/H2CO3 Ratio 25:1 ABG pH 7.50 H ABG pCO2 39.1 ABG pO2 64.4 L ABG HCO3 29.7 H ABG O2 Saturation 94.2 ABG Base Excess 6.1 FiO2 30% Sodium 138.8 Potassium 4.3 Chloride 101 Carbon Dioxide 31 H Anion Gap 7 BUN 8 Creatinine 0.48 L Est GFR ( Amer) > 60 Est GFR (Non-Af Amer) > 60 Glucose 183 H Calcium 7.4 L Magnesium 1.5 L Total Bilirubin 0.3 AST 24 ALT 22 Alkaline Phosphatase 76 Total Protein 4.3 L Albumin 2.2 L 04/08/17 12:40 Catheterized Urine Urine Culture - Final C.albicans/C.dubliniensis 04/06/17 17:10 Tracheal Aspirate Gram Stain - Final 04/03/17 04/03/17 17:30 21:05 Troponin I 0.039 0.029 Impressions: KUB X-Ray 04/05/17 00:00 IMPRESSION: SATISFACTORY POSITION OF THE NASOGASTRIC TUBE. NO RADIOGRAPHIC EVIDENCE FOR ACUTE ABDOMINAL DISEASE. Chest CT 04/08/17 00:00 IMPRESSION: Changes consistent with bilateral perihilar infiltrates basilar atelectasis with small effusions. Chest X-Ray 04/08/17 06:00 IMPRESSION: 1. Overall stable appearance of the chest. Interventional Vascular Procedure 04/09/17 00:00 IMPRESSION: SUCCESSFUL PLACEMENT OF A 5 FR DUAL LUMEN 37 CM PICC IN THE RIGHT BASILIC VEIN. PICC Line Insertion 04/09/17 00:00 IMPRESSION: SUCCESSFUL PLACEMENT OF A 5 FR DUAL LUMEN 37 CM PICC IN THE RIGHT BASILIC VEIN. Assessment & Plan - Diagnosis (1) Acute respiratory failure Qualifiers: Respiratory failure complication: hypoxia Qualified Code(s): J96.01 - Acute respiratory failure with hypoxia Is this a current diagnosis for this admission?: Yes Plan: Likely due to pneumonic process. Do not believe that the angioedema is the precipitant factor of hypoxemia. Dr Epps assisting in weaning off ventilator. (2) Anemia requiring transfusions Is this a current diagnosis for this admission?: Yes Plan: Improved after blood transfusions. Stable (3) Angioedema Qualifiers: Encounter type: initial encounter Qualified Code(s): T78.3XXA - Angioneurotic edema, initial encounter Is this a current diagnosis for this admission?: Yes Plan: Patient is on Januvia which may had caused angioedema. Resolved. (4) Pneumonia Qualifiers: Pneumonia type: due to unspecified organism Laterality: unspecified laterality Lung location: unspecified part of lung Qualified Code(s): J18.9 - Pneumonia, unspecified organism Is this a current diagnosis for this admission?: Yes Plan: Continue current treatment. Will order CT of the chest to evaluate persistent right-sided consolidation . Continue meropenem and zyvox (5) Salmonella Is this a current diagnosis for this admission?: Yes Plan: Discontinue Levaquin since patient on broad-spectrum antibiotic and he was sensitive. Urine culture growing mercy which relates to kearney cath (6) C. difficile diarrhea Is this a current diagnosis for this admission?: Yes Plan: Continue vancomycin oral and lactobacillus. Add rifaximin (7) Diabetes Qualifiers: Diabetes mellitus type: type 2 Diabetes mellitus complication status: with unspecified complications Diabetes mellitus roll machine operator insulin use: without roll machine operator use Qualified Code(s): E11.8 - Type 2 diabetes mellitus with unspecified complications Is this a current diagnosis for this admission?: Yes Plan: Increase Lantus to 10 units subcu daily and continue Humalog sliding scale (8) Bacteremia associated with intravascular line Qualifiers: Encounter type: sequela Qualified Code(s): T82.7XXS - Infection and inflammatory reaction due to other cardiac and vascular devices, implants and grafts, sequela; R78.81 - Bacteremia; R78.81 - Bacteremia Is this a current diagnosis for this admission?: Yes Plan: Growing Streptococcus mitis. Continue present treatment. Patient still with intravascular line inserted in emergency room. Blood cultures so far negative. PICC line inserted today (9) Pulmonary hypertension Is this a current diagnosis for this admission?: Yes Plan: May need to restart lasix (10) Hypokalemia Is this a current diagnosis for this admission?: Yes Plan: Replaced via GI tract and trend - Time Time Spent with patient: 15-24 minutes Medications reviewed and adjusted accordingly: Yes Anticipated discharge: Acute Rehab Within: Other - one week - Inpatient Certification Based on my medical assessment, after consideration of the patient's comorbidities, presenting symptoms, or acuity I expect that the services needed warrant INPATIENT care.: Yes I certify that my determination is in accordance with my understanding of Medicare's requirements for reasonable and necessary INPATIENT services [42 CFR 412.3e].: Yes Medical Necessity: Need Close Monitoring Due to Risk of Patient Decompensation, Need For Continuous Telemetry Monitoring, Need for IV Antibiotics
--- NOTE | 2017-04-09 12:49 | PDOC CONSULTATION ---
Consultation Consult Date: 04/04/17 Attending physician:: JEFFY SCHWARTZ Consult reason:: acute resp failure History of Present Illness Admission Date/PCP: 04/03/17 15:45 ALKA VIRAMONTES PA-C History of Present Illness: PHYLLIS BARRERA is a 86 year old female had not been feeling well for a couple of days. She has not been able to walk. On the day of evaluation her eyelids were swollen as well as the tongue. EMS was called and patient was administered Pepcid and Benadryl while in route. Upon arrival to emergency room patient was found to be hypoxemic and the decision was made by ED physician to intubate patient. Our service was contacted for further management. It is not worth it to mention that daughter was to bedside and was able to provide some information as above. Also she stated that patient suffers from anemia and had required to be transfused in the recent past. She always test positive for blood in her stool. She had been extensively evaluated and the physicians taking care of her had not been able to determine the cause. Patient was recently treated for C. difficile. Patient suffers from recurrent urinary tract infection and it appears to be that the recurring use of antibiotic was the culprit. Also it appears that patient tested positive for Salmonella. Past Medical History Cardiac Medical History: Reports: Hyperlipidema EENT Medical History: Reports: None Neurological Medical History: Reports: None Endocrine Medical History: Reports: Diabetes Mellitus Type 2, Hypothyroidism Renal/ Medical History: Reports: None Malignancy Medical History: Reports: None GI Medical History: Reports: Other - GI bleeding of unknown source Psychiatric Medical History: Reports: Dementia, Depression Hematology: Reports: Anemia Infectious Medical History: Denies: Other Past Surgical History Past Surgical History: Reports: Other - Colonoscopies Social History Information Source: [facility] Records Smoking Status: Unknown if Ever Smoked Frequency of Alcohol Use: None Hx Recreational Drug Use: No Drugs: None Hx Prescription Drug Abuse: Yes - Advance Directive Resuscitation Status: Do Not Resuscitate Family History Parental Family History Reviewed: No Children Family History Reviewed: No Sibling(s) Family History Reviewed.: No Medication/Allergy Home Medications: Amlodipine Besylate [Norvasc 10 mg Tablet] 10 mg PO QHS 04/03/17 Anastrozole [Arimidex 1 mg Tablet] 1 mg PO DAILY 04/03/17 Aspirin [Aspirin 325 mg Tablet] 325 mg PO QHS 04/03/17 Atorvastatin Calcium [Lipitor 20 mg Tablet] 20 mg PO QHS 04/03/17 Calcium Carbonate/Vitamin D3 [Oyster Shell Calcium-Vit D Tab] 1 each PO QPM Donepezil HCl [Aricept] 10 mg PO QPM 04/03/17 Eplerenone [Inspra] 50 mg PO DAILY 04/03/17 Escitalopram Oxalate [Lexapro 10 mg Tablet] 10 mg PO QPM 04/03/17 Glimepiride [Amaryl 1 mg Tablet] 1 mg PO BID 04/03/17 Levothyroxine Sodium [Synthroid] 137 mcg PO Q6AM 04/03/17 Losartan Potassium [Cozaar 50 mg Tablet] 50 mg PO QHS 04/03/17 Metformin HCl [Glucophage 500 mg Tablet] 500 mg PO BID 04/03/17 Omeprazole Magnesium [Prilosec Otc] 20 mg PO QHS 04/03/17 Ropinirole HCl [Requip 2 Mg Tablet] 2 mg PO Q12 04/03/17 Sitagliptin Phosphate [Januvia 50 mg Tablet] 50 mg PO Q12 04/03/17 Allergies/Adverse Reactions: diazepam [From Valium] Allergy (Verified 04/03/17 15:08) Review of Systems ROS unobtainable: Due to endotracheal tube Physical Exam Vital Signs: Temp Pulse Resp BP Pulse Ox 97.4 F 68 12 106/54 L 94 04/03/17 23:28 04/03/17 23:28 04/04/17 04:30 04/04/17 04:30 04/04/17 08:29 Intake & Output 04/03/17 04/04/17 04/05/17 06:59 06:59 06:59 Intake Total 300 Output Total 1300 Balance -1000 General appearance: PRESENT: no acute distress, disheveled, obese Head exam: PRESENT: atraumatic, normocephalic Eye exam: PRESENT: conjunctiva pale. ABSENT: nystagmus, scleral icterus Ear exam: PRESENT: TM's normal bilaterally Mouth exam: PRESENT: dry mucosa, neck supple, tongue midline, other - ET tube. ABSENT: laceration, moist Neck exam: ABSENT: carotid bruit, JVD, lymphadenopathy, thyromegaly Gentrourinary exam: PRESENT: indwelling catheter Extremities exam: ABSENT: clubbing, joint swelling Musculoskeletal exam: ABSENT: ambulatory, deformity, dislocation Neurological exam: ABSENT: alert, awake, oriented to person Skin exam: PRESENT: dry, warm Results Laboratory Results: 04/04/17 05:25 04/04/17 05:25 04/04/17 04/04/17 05:25 05:25 WBC 5.8 RBC 2.58 L Hgb 7.3 L Hct 22.4 L MCV 87 MCH 28.4 MCHC 32.7 RDW 16.6 H Plt Count 523 H Seg Neutrophils % 82.3 H Lymphocytes % 9.4 L Monocytes % 7.8 Eosinophils % 0.1 Basophils % 0.4 Absolute Neutrophils 4.8 Absolute Lymphocytes 0.5 Absolute Monocytes 0.5 Absolute Eosinophils 0.0 Absolute Basophils 0.0 Retic Count (auto) 4.72 H Absolute Retic 0.122 Sodium 142.7 Potassium 3.7 Chloride 104 Carbon Dioxide 34 H Anion Gap 5 BUN 14 Creatinine 0.51 L Est GFR ( Amer) > 60 Est GFR (Non-Af Amer) > 60 Glucose 220 H Calcium 7.7 L Iron 10.4 L TIBC 329 % Saturation 3 Ferritin 16.10 Vitamin B12 > 1000.0 H Folate 17.80 04/03/17 04/03/17 17:30 21:05 Troponin I 0.039 0.029 Impressions: Chest X-Ray 04/03/17 13:01 IMPRESSION: Extensive pulmonary opacity bilaterally. See above discussion. Tip of the central line on the right projected over the right atrium. Endotracheal tube in good position. Distal NG tube beneath the diaphragm. KUB X-Ray 04/03/17 15:27 IMPRESSION: Nasogastric tube tip and side port in the stomach Assessment & Plan - Diagnosis (1) Acute respiratory failure Qualifiers: Respiratory failure complication: hypoxia Qualified Code(s): J96.01 - Acute respiratory failure with hypoxia Is this a current diagnosis for this admission?: Yes Plan: supportive care (2) GI bleed Qualifiers: GI bleed type/associated pathology: unspecified gastrointestinal hemorrhage type Qualified Code(s): K92.2 - Gastrointestinal hemorrhage, unspecified (3) Pneumonia Qualifiers: Pneumonia type: due to unspecified organism Laterality: unspecified laterality Lung location: unspecified part of lung Qualified Code(s): J18.9 - Pneumonia, unspecified organism Is this a current diagnosis for this admission?: Yes (4) Pulmonary hypertension Is this a current diagnosis for this admission?: Yes Plan: stable - Time Total Critical Time (Minutes): 55
--- NOTE | 2017-04-09 12:53 | PDOC PROGRESS REPORT ---
Subjective Progress Note for:: 04/09/17 Subjective:: lethergic Reason For Visit: ACUTE RESPIRATORY FAILURE Physical Exam Vital Signs: Temp Pulse Resp BP Pulse Ox 99.5 F 91 21 H 124/53 L 90 L 04/09/17 10:00 04/09/17 10:00 04/09/17 10:00 04/09/17 10:00 04/09/17 10:00 Intake & Output 04/08/17 04/09/17 04/10/17 06:59 06:59 06:59 Intake Total 2746 2388 Output Total 3995 2095 225 Balance -1249 293 -225 Weight 86.6 kg 87.5 kg General appearance: PRESENT: no acute distress, disheveled. ABSENT: mild distress, morbidly obese, severe distress Head exam: PRESENT: atraumatic, normocephalic Eye exam: PRESENT: conjunctiva pale, EOMI. ABSENT: conjunctival injection, conjunctiva pink, nystagmus, periorbital swelling, scleral icterus Mouth exam: PRESENT: dry mucosa, moist, tongue midline, other - ET tube. ABSENT : laceration, neck supple Neck exam: ABSENT: carotid bruit, JVD, lymphadenopathy, thyromegaly, tracheal deviation, tracheostomy Respiratory exam: PRESENT: decreased breath sounds, prolonged expiratory phas, rales, rhonchi, symmetrical, unlabored, wheezes. ABSENT: accessory muscle use, chest wall tenderness, clear to auscultation quinten, crackles, retraction, stridor , tachypnea Cardiovascular exam: PRESENT: irregular rhythm, +S1, +S2 Pulses: PRESENT: normal radial pulses GI/Abdominal exam: PRESENT: diminished bowel sounds, soft Gentrourinary exam: PRESENT: indwelling catheter Extremities exam: PRESENT: +1 edema. ABSENT: clubbing Musculoskeletal exam: ABSENT: ambulatory, deformity, dislocation Neurological exam: PRESENT: awake Skin exam: PRESENT: dry, warm Results Laboratory Results: 04/09/17 04:10 04/09/17 04:10 04/08/17 04/08/17 04/09/17 11:05 11:05 04:10 WBC 9.6 RBC 3.41 L Hgb 9.3 L Hct 29.4 L MCV 86 MCH 27.4 MCHC 31.7 L RDW 16.4 H Plt Count 347 Seg Neutrophils % 78.5 H Lymphocytes % 10.3 L Monocytes % 10.2 Eosinophils % 0.4 Basophils % 0.6 Absolute Neutrophils 7.6 Absolute Lymphocytes 1.0 Absolute Monocytes 1.0 Absolute Eosinophils 0.0 Absolute Basophils 0.1 Carbonic Acid 1.18 HCO3/H2CO3 Ratio 25:1 ABG pH 7.50 H ABG pCO2 39.1 ABG pO2 64.4 L ABG HCO3 29.7 H ABG O2 Saturation 94.2 ABG Base Excess 6.1 FiO2 30% Sodium 139.0 Potassium 3.8 D Chloride 99 Carbon Dioxide 35 H Anion Gap 5 BUN 8 Creatinine 0.53 Est GFR ( Amer) > 60 Est GFR (Non-Af Amer) > 60 Glucose 210 H Calcium 7.7 L Magnesium 1.5 L Total Bilirubin AST ALT Alkaline Phosphatase Total Protein Albumin 04/09/17 04/09/17 04:10 04:10 WBC 12.3 H RBC 3.06 L Hgb 8.3 L Hct 26.4 L MCV 87 MCH 27.2 MCHC 31.4 L RDW 16.5 H Plt Count 278 Seg Neutrophils % 78.7 H Lymphocytes % 10.7 L Monocytes % 9.8 Eosinophils % 0.1 Basophils % 0.7 Absolute Neutrophils 9.7 H Absolute Lymphocytes 1.3 Absolute Monocytes 1.2 Absolute Eosinophils 0.0 Absolute Basophils 0.1 Carbonic Acid HCO3/H2CO3 Ratio ABG pH ABG pCO2 ABG pO2 ABG HCO3 ABG O2 Saturation ABG Base Excess FiO2 Sodium 138.8 Potassium 4.3 Chloride 101 Carbon Dioxide 31 H Anion Gap 7 BUN 8 Creatinine 0.48 L Est GFR ( Amer) > 60 Est GFR (Non-Af Amer) > 60 Glucose 183 H Calcium 7.4 L Magnesium 1.5 L Total Bilirubin 0.3 AST 24 ALT 22 Alkaline Phosphatase 76 Total Protein 4.3 L Albumin 2.2 L 04/03/17 04/03/17 17:30 21:05 Troponin I 0.039 0.029 Impressions: KUB X-Ray 04/05/17 00:00 IMPRESSION: SATISFACTORY POSITION OF THE NASOGASTRIC TUBE. NO RADIOGRAPHIC EVIDENCE FOR ACUTE ABDOMINAL DISEASE. Chest CT 04/08/17 00:00 IMPRESSION: Changes consistent with bilateral perihilar infiltrates basilar atelectasis with small effusions. Chest X-Ray 04/08/17 06:00 IMPRESSION: 1. Overall stable appearance of the chest. Interventional Vascular Procedure 04/09/17 00:00 IMPRESSION: SUCCESSFUL PLACEMENT OF A 5 FR DUAL LUMEN 37 CM PICC IN THE RIGHT BASILIC VEIN. PICC Line Insertion 04/09/17 00:00 IMPRESSION: SUCCESSFUL PLACEMENT OF A 5 FR DUAL LUMEN 37 CM PICC IN THE RIGHT BASILIC VEIN. Assessment & Plan - Diagnosis (1) Acute respiratory failure Qualifiers: Respiratory failure complication: hypoxia Qualified Code(s): J96.01 - Acute respiratory failure with hypoxia Is this a current diagnosis for this admission?: Yes Plan: min vol;rr ;FIO2 airway psessures will extubate to bi-pap (2) GI bleed Qualifiers: GI bleed type/associated pathology: unspecified gastrointestinal hemorrhage type Qualified Code(s): K92.2 - Gastrointestinal hemorrhage, unspecified Is this a current diagnosis for this admission?: Yes (3) Pneumonia Qualifiers: Pneumonia type: due to unspecified organism Laterality: unspecified laterality Lung location: unspecified part of lung Qualified Code(s): J18.9 - Pneumonia, unspecified organism Is this a current diagnosis for this admission?: Yes Plan: 04/08/17 12:40 Urine Culture - Final Catheterized Urine C.albicans/C.dubliniensis 04/06/17 17:10 Gram Stain - Final Tracheal Aspirate Sputum Culture - Preliminary Gram Negative Rods . Greatly Reduced Normal Afsaneh 04/03/17 14:13 Urine Culture - Final Catheterized Urine Salmonella Species 04/03/17 13:34 Blood Culture - Final Blood Streptococcus Mitis 04/03/17 12:50 Blood Culture - Final Blood NO GROWTH IN 5 DAYS - Time Total Critical Time (Minutes): 55
--- NOTE | 2017-04-09 15:07 | Physician Advisory Note ---
Physician Advisor ProgressNote .: Pursuant to the plan for [facility], I have reviewed the medical record for this patient. Physician Advisor Statement: Pt was admitted on 04/03 at 15:25. She had central line placed on 04/03 at 13:13. BC sample that grew S. mitis was drawn 04/03 at 13:34 from central line. Other BC drawn before central line placed is negative. Please consider documenting, if you agree: 1. Does pt have (clarification): A. "Bacteremia, present on admission, found on culture drawn from IV line, but not caused by the line placement", or B. "Bacteremia, developing after admission, due to line placement" 2. "Pneumonia, likely ____ type [gram-neg? gram pos? ...], evidenced by __" 3. "probable chronic anemia of Fe deficiency from chronic GI bleeding, requiring transfusion", or "Probable Anemia of Acute Blood Loss, on top of chronic anemia, due to suspected acute on chronic GI bleeding of uncertain source" 4. Does pt have "UTI due to Arana" (hospital-acquired infection)? Or just some "yeast contamination of urine sample from Arana, without true UTI"? Thanks for your help! CK
[2017-04-09] MEDS ORDERED: ACETAMINOPHEN 100 ML IV ONE (20:30)
[2017-04-09] MEDS: NORMAL SALINE 10 ML SDV (SCHEDULED) IV SCH (21:41)
[2017-04-10] MEDS: MEROPENEM 500 MG in NORMAL SALINE 50 ML IV SCH (01:32)
[2017-04-10] MEDS: IPRATROPIUM/ALBUTEROL 0.5-2.5 MG/3 ML AMPUL NEB SCH ×4 (02:00→19:42)
[2017-04-10] MEDS: LINEZOLID 300 ML IV SCH (05:36)
[2017-04-10] MEDS: LANSOPRAZOLE 30 MG TAB.RAP.DR NG SCH (05:37)
[2017-04-10] MEDS: VANCOMYCIN HCL INJ 500 MG VIAL PO SCH ×3 (05:37→17:33)
[2017-04-10 06:00] LABS: ABSOLUTE EOSINOPHILS # (AUTO) 0.2 10^3/uL (0.0-0.6); ABSOLUTE LYMPHOCYTES (AUTO) 0.8 10^3/uL (0.5-4.7); ABSOLUTE MONOCYTES (AUTO) 1.1 10^3/uL (0.1-1.4); ABSOLUTE NEUT (AUTO) 6.9 10^3/uL (1.7-8.2); BASOPHILS % (AUTO) 0.4 % (0-2); EOSINOPHILS % (AUTO) 1.9 % (0-6); LYMPHOCYTES % (AUTO) 8.5 % (13-45); MEAN CORPUSCULAR HEMOGLOBIN 27.8 pg (27.0-33.4); MEAN CORPUSCULAR HGB CONC 31.8 g/dL (32.0-36.0); MEAN CORPUSCULAR VOLUME 87 fl (80-97); PLATELET COUNT 245 10^3/uL (150-450); RED BLOOD COUNT 2.86 10^6/uL (3.72-5.28); RED CELL DISTRIBUTION WIDTH 16.4 % (11.5-14.0); SEGMENTED NEUTROPHILS % (AUTO) 77.2 % (42-78); TOTAL CELLS COUNTED % (AUTO) 100 %
[2017-04-10 06:05] LABS: ARTERIAL BLOOD BASE EXCESS 4.7 mmol/L; ARTERIAL BLOOD FIO2 30%; ARTERIAL BLOOD H2CO3 1.26 mmol/L (1.05-1.35); ARTERIAL BLOOD O2 SATURATION 99.1 % (94-98); ARTERIAL BLOOD PCO2 41.7 mmHg (35-45); ARTERIAL BLOOD PH 7.46 (7.35-7.45); ARTERIAL BLOOD PO2 152.5 mmHg (80-100); ARTERIAL BLOOD TOTAL CO2 30.3 mmol/L (21-25)
[2017-04-10 07:11] LABS: ANION GAP 5 (5-19); BLOOD UREA NITROGEN 6 mg/dL (7-20); CALCIUM 7.9 mg/dL (8.4-10.2); CARBON DIOXIDE 29 mmol/L (22-30); CHLORIDE 101 mmol/L (98-107); GLUCOSE 187 mg/dL (75-110); MAGNESIUM 2.1 mg/dL (1.6-2.3); POTASSIUM 4.9 mmol/L (3.6-5.0); SODIUM 134.9 mmol/L (137-145)
--- NOTE | 2017-04-10 08:06 | RADIOLOGY REPORT (SQ) ---
EXAM DESCRIPTION: CHEST SINGLE VIEW COMPLETED DATE/TIME: 04/10/2017 6:50 am REASON FOR STUDY: Pt extubated yesterday COMPARISON: 04/08/2017. EXAM PARAMETERS: NUMBER OF VIEWS: One view. TECHNIQUE: Single frontal radiographic view of the chest acquired. RADIATION DOSE: NA LIMITATIONS: None. FINDINGS: LUNGS AND PLEURA: Persistent bilateral pulmonary infiltrates demonstrating no significant change. MEDIASTINUM AND HILAR STRUCTURES: No masses. Contour normal. HEART AND VASCULAR STRUCTURES: Heart normal in size. Normal vasculature. BONES: No acute findings. HARDWARE: Interval removal of endotracheal tube. OTHER: Interval removal of the NG tube and right IJ line. Placement of right trans venous PICC line in right atrium. IMPRESSION: Bilateral pulmonary alveolar infiltrates unchanged. Interval extubation, removal of NG tube, and right IJ line. Placement of right trans venous PICC line with tip overlying right atrium. TECHNICAL DOCUMENTATION: JOB ID: [id number] [id number] 2010 [employer]- All Rights Reserved
[2017-04-10] MEDS: ACETYLCYSTEINE 20% SOLN 800 MG/4 ML VIAL.NEB NEB SCH ×2 (08:10→19:42)
[2017-04-10] MEDS ORDERED: FUROSEMIDE INJ/PF 20 MG/2 ML SDV IV ONE (09:30)
--- NOTE | 2017-04-10 09:31 | PDOC PROGRESS REPORT ---
Subjective Progress Note for:: 04/10/17 Subjective:: Patient is alert awake She is on BiPAP support and it is difficult to understand her But she does not appear in severe respiratory distress The tongue does not appear swollen She is awake Reason For Visit: ACUTE RESPIRATORY FAILURE Physical Exam Vital Signs: Temp Pulse Resp BP Pulse Ox 98.8 F 71 12 161/66 H 100 04/10/17 08:00 04/10/17 08:12 04/10/17 08:12 04/10/17 08:00 04/10/17 08:12 Intake & Output 04/09/17 04/10/17 04/11/17 00:59 00:59 00:59 Intake Total 2811 3013 1444 Output Total 2555 1505 1115 Balance 256 1508 329 Weight 86.6 kg 87.5 kg 88.1 kg General appearance: PRESENT: no acute distress, obese, other - Looks very edematous Head exam: PRESENT: atraumatic, normocephalic Eye exam: PRESENT: conjunctival injection Respiratory exam: PRESENT: decreased breath sounds, wheezes. ABSENT: accessory muscle use, crackles Cardiovascular exam: PRESENT: RRR. ABSENT: diastolic murmur, rubs, systolic murmur Pulses: PRESENT: normal dorsalis pedis pul GI/Abdominal exam: PRESENT: normal bowel sounds, soft. ABSENT: distended, guarding, mass, organolmegaly, rebound, tenderness Extremities exam: PRESENT: full ROM, +2 edema - Bilaterally Neurological exam: PRESENT: alert, awake, CN II-XII grossly intact Results Laboratory Results: 04/10/17 05:30 04/10/17 06:40 04/10/17 04/10/17 04/10/17 05:30 05:30 05:30 WBC 9.0 RBC 2.86 L Hgb 8.0 L Hct 25.0 L MCV 87 MCH 27.8 MCHC 31.8 L RDW 16.4 H Plt Count 245 Seg Neutrophils % 77.2 Lymphocytes % 8.5 L Monocytes % 12.0 Eosinophils % 1.9 Basophils % 0.4 Absolute Neutrophils 6.9 Absolute Lymphocytes 0.8 Absolute Monocytes 1.1 Absolute Eosinophils 0.2 Absolute Basophils 0.0 Carbonic Acid 1.26 HCO3/H2CO3 Ratio 23:1 ABG pH 7.46 H ABG pCO2 41.7 ABG pO2 152.5 H ABG HCO3 29.0 H ABG O2 Saturation 99.1 H ABG Base Excess 4.7 FiO2 30% Sodium Cancelled Potassium Cancelled Chloride Cancelled Carbon Dioxide Cancelled Anion Gap Cancelled BUN Cancelled Creatinine Cancelled Est GFR ( Amer) Cancelled Est GFR (Non-Af Amer) Cancelled Glucose Cancelled Calcium Cancelled Magnesium Cancelled 04/10/17 06:40 WBC RBC Hgb Hct MCV MCH MCHC RDW Plt Count Seg Neutrophils % Lymphocytes % Monocytes % Eosinophils % Basophils % Absolute Neutrophils Absolute Lymphocytes Absolute Monocytes Absolute Eosinophils Absolute Basophils Carbonic Acid HCO3/H2CO3 Ratio ABG pH ABG pCO2 ABG pO2 ABG HCO3 ABG O2 Saturation ABG Base Excess FiO2 Sodium 134.9 L Potassium 4.9 Chloride 101 Carbon Dioxide 29 Anion Gap 5 BUN 6 L Creatinine 0.48 L Est GFR ( Amer) > 60 Est GFR (Non-Af Amer) > 60 Glucose 187 H Calcium 7.9 L Magnesium 2.1 04/06/17 17:10 Tracheal Aspirate Gram Stain - Final 04/08/17 12:40 Catheterized Urine Urine Culture - Final C.albicans/C.dubliniensis 04/03/17 04/03/17 17:30 21:05 Troponin I 0.039 0.029 Impressions: KUB X-Ray 04/05/17 00:00 IMPRESSION: SATISFACTORY POSITION OF THE NASOGASTRIC TUBE. NO RADIOGRAPHIC EVIDENCE FOR ACUTE ABDOMINAL DISEASE. Chest CT 04/08/17 00:00 IMPRESSION: Changes consistent with bilateral perihilar infiltrates basilar atelectasis with small effusions. Interventional Vascular Procedure 04/09/17 00:00 IMPRESSION: SUCCESSFUL PLACEMENT OF A 5 FR DUAL LUMEN 37 CM PICC IN THE RIGHT BASILIC VEIN. PICC Line Insertion 04/09/17 00:00 IMPRESSION: SUCCESSFUL PLACEMENT OF A 5 FR DUAL LUMEN 37 CM PICC IN THE RIGHT BASILIC VEIN. Chest X-Ray 04/10/17 06:30 IMPRESSION: Bilateral pulmonary alveolar infiltrates unchanged. Interval extubation, removal of NG tube, and right IJ line. Placement of right trans venous PICC line with tip overlying right atrium. Assessment & Plan - Diagnosis (1) Anemia Qualifiers: Anemia type: iron deficiency Is this a current diagnosis for this admission?: Yes Plan: Iron deficiency anemia secondary to GI bleed noted that patient did have blood in the stools and the serum iron was extremely low B12 and folate were normal We will discontinue linezolid at this time which can cause pancytopenia and worsen anemia Replace iron IV Protonix IV every 12 We will follow-up stools for occult blood If GI bleed persist patient may need endoscopy when clinically stable (2) Acute respiratory failure Qualifiers: Respiratory failure complication: hypoxia Qualified Code(s): J96.01 - Acute respiratory failure with hypoxia Is this a current diagnosis for this admission?: Yes Plan: Secondary to bilateral pneumonia Patient did have Salmonella in the sputum ? Is it Salmonella pneumonia Salmonella was sensitive to cefepime Switch to cefepime IV (3) Angioedema Qualifiers: Encounter type: initial encounter Qualified Code(s): T78.3XXA - Angioneurotic edema, initial encounter Is this a current diagnosis for this admission?: Yes Plan: Has resolved (4) C. difficile diarrhea Is this a current diagnosis for this admission?: Yes Plan: Patient is not taking p.o. right now She still has profuse diarrhea Rectal tube is in place We will give her Flagyl IV and continue vancomycin p.o. (5) GI bleed Qualifiers: GI bleed type/associated pathology: unspecified gastrointestinal hemorrhage type Qualified Code(s): K92.2 - Gastrointestinal hemorrhage, unspecified Is this a current diagnosis for this admission?: Yes Plan: See above for anemia (6) Pneumonia Qualifiers: Pneumonia type: due to unspecified organism Laterality: unspecified laterality Lung location: unspecified part of lung Qualified Code(s): J18.9 - Pneumonia, unspecified organism Is this a current diagnosis for this admission?: Yes Plan: Bilateral pneumonia secondary to Salmonella (7) Salmonella Is this a current diagnosis for this admission?: Yes - Time Time Spent with patient: Patient appears also extremely fluid overloaded We will give 20 mg of IV Lasix and decrease IV fluids Patient will have speech evaluation and we will initiate p.o. feedings if able Time Spent with patient: 25-34 minutes
[2017-04-10] MEDS ORDERED: FLUCONAZOLE 200 MG/NS RTU 100 ML IV SCH (10:00)
[2017-04-10] MEDS ORDERED: METRONIDAZOLE 500 MG/NS RTU 100 ML IV ONE (10:00)
[2017-04-10] MEDS ORDERED: FERUMOXYTOL 510 MG in NORMAL SALINE 100 ML IV ONE (10:30)
[2017-04-10] MEDS: LACTOBACILLUS ACIDOPHILUS 250 MG TAB PO SCH ×2 (12:38→17:33)
[2017-04-10] MEDS: DOCUSATE SODIUM 100 MG CAPSULE PO SCH (12:38)
[2017-04-10] MEDS ORDERED: FUROSEMIDE INJ/PF 20 MG/2 ML SDV ONE (12:40)
[2017-04-10] MEDS: PANTOPRAZOLE SODIUM 40 MG VIAL IV SCH ×2 (12:46→22:12)
[2017-04-10] MEDS: NORMAL SALINE 10 ML SDV (SCHEDULED) IV SCH ×2 (12:51→22:12)
[2017-04-10] MEDS: INSULIN GLARGINE,HUM.REC.ANLOG 300 UNIT/3 ML INSULN.PEN SUBCUT SCH (13:00)
[2017-04-10] MEDS: METRONIDAZOLE 500 MG/NS RTU 100 ML IV SCH ×2 (17:32→22:11)
[2017-04-11] MEDS: VANCOMYCIN HCL INJ 500 MG VIAL PO SCH ×4 (00:23→18:30)
[2017-04-11] MEDS: POTASSI CL 40 MEQ/D5-1/2NS 1L 40 MEQ/1,000 ML RTUINJ IV PRN (00:58)
[2017-04-11] MEDS: IPRATROPIUM/ALBUTEROL 0.5-2.5 MG/3 ML AMPUL NEB SCH ×4 (02:05→20:09)
[2017-04-11] MEDS: METRONIDAZOLE 500 MG/NS RTU 100 ML IV SCH ×2 (02:51→09:00)
[2017-04-11 06:20] LABS: ABSOLUTE BASOPHILS # (AUTO) 0.1 10^3/uL (0.0-0.2); ABSOLUTE EOSINOPHILS # (AUTO) 0.2 10^3/uL (0.0-0.6); ABSOLUTE LYMPHOCYTES (AUTO) 0.8 10^3/uL (0.5-4.7); BASOPHILS % (AUTO) 0.8 % (0-2); HEMATOCRIT 24.3 % (36.0-47.0); LYMPHOCYTES % (AUTO) 11.6 % (13-45); MEAN CORPUSCULAR HEMOGLOBIN 27.3 pg (27.0-33.4); MEAN CORPUSCULAR HGB CONC 31.6 g/dL (32.0-36.0); MEAN CORPUSCULAR VOLUME 87 fl (80-97); MONOCYTES % (AUTO) 14.5 % (3-13); PLATELET COUNT 240 10^3/uL (150-450); RED BLOOD COUNT 2.82 10^6/uL (3.72-5.28); RED CELL DISTRIBUTION WIDTH 16.2 % (11.5-14.0); SEGMENTED NEUTROPHILS % (AUTO) 70.1 % (42-78); TOTAL CELLS COUNTED % (AUTO) 100 %; WHITE BLOOD COUNT 7.1 10^3/uL (4.0-10.5)
[2017-04-11 06:26] LABS: HEMOGLOBIN 7.7 g/dL (12.0-15.5)
[2017-04-11 07:10] LABS: ANION GAP 5 (5-19); BLOOD UREA NITROGEN 5 mg/dL (7-20); CALCIUM 8.4 mg/dL (8.4-10.2); CARBON DIOXIDE 30 mmol/L (22-30); CHLORIDE 99 mmol/L (98-107); GLUCOSE 135 mg/dL (75-110); MAGNESIUM 1.9 mg/dL (1.6-2.3); POTASSIUM 4.8 mmol/L (3.6-5.0); SODIUM 133.7 mmol/L (137-145)
[2017-04-11] MEDS: ACETYLCYSTEINE 20% SOLN 800 MG/4 ML VIAL.NEB NEB SCH ×2 (08:00→20:09)
[2017-04-11] MEDS ORDERED: NORMAL SALINE 250 ML IV PRN (09:42)
[2017-04-11] MEDS ORDERED: FUROSEMIDE INJ/PF 20 MG/2 ML SDV IV PRN (09:42)
[2017-04-11] MEDS ORDERED: CEFTRIAXONE 2 GM/D5W RTU 2 GM/50 ML RTUPB IV ONE (10:00)
--- NOTE | 2017-04-11 11:29 | PDOC PROGRESS REPORT ---
Subjective Progress Note for:: 04/11/17 Subjective:: Patient is clinically doing extremely well She is oxygenating adequately on the nasal cannula No fever no chills no chest pains Diarrhea is improving; she is taking vancomycin p.o. now Case was discussed with infectious disease at [facility] regarding management of Salmonella bacteremia Reason For Visit: ACUTE RESPIRATORY FAILURE Physical Exam Vital Signs: Temp Pulse Resp BP Pulse Ox 98.2 F 88 20 149/56 H 97 04/11/17 08:00 04/11/17 08:01 04/11/17 08:01 04/11/17 08:00 04/11/17 08:01 Intake & Output 04/10/17 04/11/17 04/12/17 00:59 00:59 00:59 Intake Total 3013 0547 1325 Output Total 1505 2775 705 Balance 1508 -388 620 Weight 87.5 kg 88.1 kg 85.5 kg General appearance: PRESENT: no acute distress, obese, other - Looks very edematous Head exam: PRESENT: atraumatic, normocephalic Eye exam: PRESENT: conjunctival injection Respiratory exam: PRESENT: decreased breath sounds, wheezes. ABSENT: accessory muscle use, crackles Cardiovascular exam: PRESENT: RRR. ABSENT: diastolic murmur, rubs, systolic murmur Pulses: PRESENT: normal dorsalis pedis pul GI/Abdominal exam: PRESENT: normal bowel sounds, soft. ABSENT: distended, guarding, mass, organolmegaly, rebound, tenderness Extremities exam: PRESENT: full ROM, +2 edema - Bilaterally Neurological exam: PRESENT: alert, awake, CN II-XII grossly intact Results Laboratory Results: 04/11/17 06:00 04/11/17 06:45 04/11/17 04/11/17 04/11/17 06:00 06:00 06:45 WBC 7.1 RBC 2.82 L Hgb 7.7 L Hct 24.3 L MCV 87 MCH 27.3 MCHC 31.6 L RDW 16.2 H Plt Count 240 Seg Neutrophils % 70.1 Lymphocytes % 11.6 L Monocytes % 14.5 H Eosinophils % 3.0 Basophils % 0.8 Absolute Neutrophils 5.0 Absolute Lymphocytes 0.8 Absolute Monocytes 1.0 Absolute Eosinophils 0.2 Absolute Basophils 0.1 Sodium Cancelled 133.7 L Potassium Cancelled 4.8 Chloride Cancelled 99 Carbon Dioxide Cancelled 30 Anion Gap Cancelled 5 BUN Cancelled 5 L Creatinine Cancelled 0.53 Est GFR ( Amer) Cancelled > 60 Est GFR (Non-Af Amer) Cancelled > 60 Glucose Cancelled 135 H Calcium Cancelled 8.4 Magnesium Cancelled 1.9 04/06/17 17:10 Tracheal Aspirate Gram Stain - Final 04/06/17 17:10 Tracheal Aspirate Sputum Culture - Final Salmonella Species C.albicans/C.dubliniensis Greatly Reduced Normal Afsaneh 04/03/17 04/03/17 17:30 21:05 Troponin I 0.039 0.029 04/08/17 12:40 Urine Culture - Final Catheterized Urine C.albicans/C.dubliniensis 04/06/17 17:10 Gram Stain - Final Tracheal Aspirate Sputum Culture - Final Salmonella Species C.albicans/C.dubliniensis Greatly Reduced Normal Afsaneh 04/03/17 14:13 Urine Culture - Final Catheterized Urine Salmonella Species 04/03/17 13:34 Blood Culture - Final Blood Streptococcus Mitis Impressions: KUB X-Ray 04/05/17 00:00 IMPRESSION: SATISFACTORY POSITION OF THE NASOGASTRIC TUBE. NO RADIOGRAPHIC EVIDENCE FOR ACUTE ABDOMINAL DISEASE. Chest CT 04/08/17 00:00 IMPRESSION: Changes consistent with bilateral perihilar infiltrates basilar atelectasis with small effusions. Interventional Vascular Procedure 04/09/17 00:00 IMPRESSION: SUCCESSFUL PLACEMENT OF A 5 FR DUAL LUMEN 37 CM PICC IN THE RIGHT BASILIC VEIN. PICC Line Insertion 04/09/17 00:00 IMPRESSION: SUCCESSFUL PLACEMENT OF A 5 FR DUAL LUMEN 37 CM PICC IN THE RIGHT BASILIC VEIN. Chest X-Ray 04/10/17 06:30 IMPRESSION: Bilateral pulmonary alveolar infiltrates unchanged. Interval extubation, removal of NG tube, and right IJ line. Placement of right trans venous PICC line with tip overlying right atrium. Assessment & Plan - Diagnosis (1) Anemia Qualifiers: Anemia type: iron deficiency Is this a current diagnosis for this admission?: Yes (2) Acute respiratory failure Qualifiers: Respiratory failure complication: hypoxia Qualified Code(s): J96.01 - Acute respiratory failure with hypoxia Is this a current diagnosis for this admission?: Yes (3) Angioedema Qualifiers: Encounter type: initial encounter Qualified Code(s): T78.3XXA - Angioneurotic edema, initial encounter Is this a current diagnosis for this admission?: Yes (4) C. difficile diarrhea Is this a current diagnosis for this admission?: Yes (5) GI bleed Qualifiers: GI bleed type/associated pathology: unspecified gastrointestinal hemorrhage type Qualified Code(s): K92.2 - Gastrointestinal hemorrhage, unspecified Is this a current diagnosis for this admission?: Yes (6) Pneumonia Qualifiers: Pneumonia type: due to unspecified organism Laterality: unspecified laterality Lung location: unspecified part of lung Qualified Code(s): J18.9 - Pneumonia, unspecified organism Is this a current diagnosis for this admission?: Yes (7) Salmonella Is this a current diagnosis for this admission?: Yes Plan: Patient had Salmonella in the tracheal aspirate and urine gait It is secondary to salmonella bacteremia Case was discussed with infectious disease at [facility] patient will be placed on ceftriaxone 2 g IV piggyback daily for 14 days after negative blood culture -until 04/21/17- Echocardiogram to be performed if it was not done recently Lolita in the urine and sputum likely colonization Does not need to be treated with fluconazole Strep mitis recovered in the blood may be contamination, but in any case would be treated with ceftriaxone Patient will need a GI workup in the hospital prior to discharge to evaluate the GI bleed and also source of Salmonella from GI tract - Time Time Spent with patient: 25-34 minutes
[2017-04-11] MEDS: DOCUSATE SODIUM 100 MG CAPSULE PO SCH (11:42)
[2017-04-11] MEDS: LACTOBACILLUS ACIDOPHILUS 250 MG TAB PO SCH ×2 (12:05→18:29)
[2017-04-11] MEDS: PANTOPRAZOLE SODIUM 40 MG VIAL IV SCH ×2 (12:06→21:36)
[2017-04-11] MEDS: NORMAL SALINE 10 ML SDV (SCHEDULED) IV SCH ×2 (12:07→21:36)
[2017-04-11] MEDS: INSULIN GLARGINE,HUM.REC.ANLOG 300 UNIT/3 ML INSULN.PEN SUBCUT SCH (12:08)
[2017-04-12] MEDS: POTASSI CL 40 MEQ/D5-1/2NS 1L 40 MEQ/1,000 ML RTUINJ IV PRN ×2 (00:12→17:34)
[2017-04-12] MEDS: VANCOMYCIN HCL INJ 500 MG VIAL PO SCH ×4 (00:15→18:10)
[2017-04-12] MEDS: IPRATROPIUM/ALBUTEROL 0.5-2.5 MG/3 ML AMPUL NEB SCH ×4 (02:27→20:32)
--- NOTE | 2017-04-12 09:16 | PDOC PROGRESS REPORT ---
Subjective Progress Note for:: 04/12/17 Subjective:: doing well no complaints no CP or SOB eating her breakfast Reason For Visit: ACUTE RESPIRATORY FAILURE Physical Exam Vital Signs: Temp Pulse Resp BP Pulse Ox 99.9 F 87 23 H 150/65 H 92 04/12/17 00:05 04/12/17 02:30 04/12/17 06:30 04/12/17 06:30 04/12/17 06:30 Intake & Output 04/11/17 04/12/17 04/13/17 00:59 00:59 00:59 Intake Total 2387 2633 464 Output Total 2775 4970 1375 Balance -388 -0959 -911 Weight 88.1 kg 85.5 kg 83.5 kg General appearance: PRESENT: no acute distress, obese, other - Looks very edematous Head exam: PRESENT: atraumatic, normocephalic Eye exam: PRESENT: conjunctival injection Respiratory exam: PRESENT: decreased breath sounds, wheezes. ABSENT: accessory muscle use, crackles Cardiovascular exam: PRESENT: RRR. ABSENT: diastolic murmur, rubs, systolic murmur Pulses: PRESENT: normal dorsalis pedis pul GI/Abdominal exam: PRESENT: normal bowel sounds, soft. ABSENT: distended, guarding, mass, organolmegaly, rebound, tenderness Extremities exam: PRESENT: full ROM, +2 edema - Bilaterally Neurological exam: PRESENT: alert, awake, CN II-XII grossly intact Results Laboratory Results: 04/11/17 06:00 04/11/17 06:45 04/11/17 10:28 Blood Type O POSITIVE Antibody Screen NEGATIVE 04/06/17 17:10 Tracheal Aspirate Gram Stain - Final 04/06/17 17:10 Tracheal Aspirate Sputum Culture - Final Salmonella Species C.albicans/C.dubliniensis Greatly Reduced Normal Afsaneh 04/03/17 04/03/17 17:30 21:05 Troponin I 0.039 0.029 Impressions: KUB X-Ray 04/05/17 00:00 IMPRESSION: SATISFACTORY POSITION OF THE NASOGASTRIC TUBE. NO RADIOGRAPHIC EVIDENCE FOR ACUTE ABDOMINAL DISEASE. Chest CT 04/08/17 00:00 IMPRESSION: Changes consistent with bilateral perihilar infiltrates basilar atelectasis with small effusions. Interventional Vascular Procedure 04/09/17 00:00 IMPRESSION: SUCCESSFUL PLACEMENT OF A 5 FR DUAL LUMEN 37 CM PICC IN THE RIGHT BASILIC VEIN. PICC Line Insertion 04/09/17 00:00 IMPRESSION: SUCCESSFUL PLACEMENT OF A 5 FR DUAL LUMEN 37 CM PICC IN THE RIGHT BASILIC VEIN. Chest X-Ray 04/10/17 06:30 IMPRESSION: Bilateral pulmonary alveolar infiltrates unchanged. Interval extubation, removal of NG tube, and right IJ line. Placement of right trans venous PICC line with tip overlying right atrium. Assessment & Plan - Diagnosis (1) Anemia Qualifiers: Anemia type: iron deficiency Is this a current diagnosis for this admission?: Yes Plan: Iron deficiency anemia secondary to GI bleed noted that patient did have blood in the stools and the serum iron was extremely low B12 and folate were normal We will discontinue linezolid at this time which can cause pancytopenia and worsen anemia Replace iron IV Protonix IV every 12 We will follow-up stools for occult blood If GI bleed persist patient may need endoscopy when clinically stable / repeat CBC today (2) Acute respiratory failure Qualifiers: Respiratory failure complication: hypoxia Qualified Code(s): J96.01 - Acute respiratory failure with hypoxia Is this a current diagnosis for this admission?: Yes (3) Angioedema Qualifiers: Encounter type: initial encounter Qualified Code(s): T78.3XXA - Angioneurotic edema, initial encounter Is this a current diagnosis for this admission?: Yes (4) C. difficile diarrhea Is this a current diagnosis for this admission?: Yes Plan: Patient is not taking p.o. right now She still has profuse diarrhea Rectal tube is in place We will give her Flagyl IV and continue vancomycin p.o. (5) GI bleed Qualifiers: GI bleed type/associated pathology: unspecified gastrointestinal hemorrhage type Qualified Code(s): K92.2 - Gastrointestinal hemorrhage, unspecified Is this a current diagnosis for this admission?: Yes Plan: See above for anemia (6) Pneumonia Qualifiers: Pneumonia type: due to unspecified organism Laterality: unspecified laterality Lung location: unspecified part of lung Qualified Code(s): J18.9 - Pneumonia, unspecified organism Is this a current diagnosis for this admission?: Yes (7) Salmonella Is this a current diagnosis for this admission?: Yes Plan: Patient had Salmonella in the tracheal aspirate and urine gait It is secondary to salmonella bacteremia Case was discussed with infectious disease at [facility] patient will be placed on ceftriaxone 2 g IV piggyback daily for 14 days after negative blood culture -until 04/21/17- Echocardiogram to be performed if it was not done recently Lolita in the urine and sputum likely colonization Does not need to be treated with fluconazole Strep mitis recovered in the blood may be contamination, but in any case would be treated with ceftriaxone Patient will need a GI workup in the hospital prior to discharge to evaluate the GI bleed and also source of Salmonella from GI tract - Time Time Spent with patient: repeat labs transfuse if needed transfer to medical unit Patient did have PT eval " Patient presents as agreeable to treatment, oriented x 2 following simple 1 step commands. She required mod assist of 2 for all functional transfers and bed mobility activities. She ambulated 2 x 2 side steps with front wheeled walker and mod assist of 2 with a short shuffling gait pattern with verbal cues given for energy conservation techiques, (she remained on O2 @ 3L/min throughout treatment), to stand upright, to increase step height/length BLE and to push down onto walker with BUE. Weight shifting and trunk strengthening exercises were performed in sitting with min assist of 2 and in standing with mod assist of 2. She will benefit from skilled PT to improve strength, endurance and functional mobility. Recommend SNF rehab upon D/C." will consult D/C business planner for SNF at discharge [ End ] Time Spent with patient: 25-34 minutes
[2017-04-12] MEDS: PANTOPRAZOLE SODIUM 40 MG VIAL IV SCH (09:32)
[2017-04-12] MEDS: LACTOBACILLUS ACIDOPHILUS 250 MG TAB PO SCH ×2 (09:33→17:37)
[2017-04-12] MEDS: NORMAL SALINE 10 ML SDV (SCHEDULED) IV SCH (09:34)
[2017-04-12] MEDS: DOCUSATE SODIUM 100 MG CAPSULE PO SCH (09:35)
[2017-04-12] MEDS: CEFTRIAXONE 2 GM/D5W RTU 2 GM/50 ML RTUPB IV SCH (09:52)
[2017-04-12 09:56] LABS: ABSOLUTE BASOPHILS # (AUTO) 0.1 10^3/uL (0.0-0.2); ABSOLUTE EOSINOPHILS # (AUTO) 0.2 10^3/uL (0.0-0.6); ABSOLUTE MONOCYTES (AUTO) 1.8 10^3/uL (0.1-1.4); ABSOLUTE NEUT (AUTO) 6.1 10^3/uL (1.7-8.2); BASOPHILS % (AUTO) 0.7 % (0-2); EOSINOPHILS % (AUTO) 1.9 % (0-6); HEMATOCRIT 33.9 % (36.0-47.0); LYMPHOCYTES % (AUTO) 10.9 % (13-45); MEAN CORPUSCULAR HEMOGLOBIN 27.8 pg (27.0-33.4); MEAN CORPUSCULAR HGB CONC 32.3 g/dL (32.0-36.0); MEAN CORPUSCULAR VOLUME 86 fl (80-97); MONOCYTES % (AUTO) 19.7 % (3-13); PLATELET COUNT 272 10^3/uL (150-450); RED BLOOD COUNT 3.94 10^6/uL (3.72-5.28); RED CELL DISTRIBUTION WIDTH 16.1 % (11.5-14.0); SEGMENTED NEUTROPHILS % (AUTO) 66.8 % (42-78); TOTAL CELLS COUNTED % (AUTO) 100 %; WHITE BLOOD COUNT 9.1 10^3/uL (4.0-10.5)
[2017-04-12] MEDS ORDERED: GLIMEPIRIDE 1 MG TABLET PO SCH (10:00)
[2017-04-12] MEDS ORDERED: SITAGLIPTIN PHOSPHATE 50 MG TABLET PO SCH (10:00)
[2017-04-12] MEDS ORDERED: (PENDING PHARMACY ID) (Eplerenone [Inspra] 50 MG) PO SCH (10:00)
[2017-04-12 10:17] LABS: ANION GAP 7 (5-19); BLOOD UREA NITROGEN 4 mg/dL (7-20); CALCIUM 8.9 mg/dL (8.4-10.2); CARBON DIOXIDE 30 mmol/L (22-30); CHLORIDE 97 mmol/L (98-107); GLUCOSE 168 mg/dL (75-110); POTASSIUM 5.1 mmol/L (3.6-5.0); SODIUM 133.7 mmol/L (137-145)
[2017-04-12] MEDS ORDERED: ROPINIROLE HCL 2 MG TABLET PO ONE (11:00)
[2017-04-12] MEDS ORDERED: INSULIN LISPRO 100 UNIT/ML 3 ML VIAL SUBCUT PRN (11:00)
[2017-04-12] MEDS ORDERED: ANASTROZOLE 1 MG TABLET PO ONE (11:00)
[2017-04-12] MEDS: METFORMIN HCL 500 MG TABLET PO SCH ×2 (12:20→17:35)
[2017-04-12] MEDS: INSULIN GLARGINE,HUM.REC.ANLOG 300 UNIT/3 ML INSULN.PEN SUBCUT SCH (12:24)
[2017-04-12] MEDS: EPLERENONE 25 MG TABLET PO SCH (12:28)
[2017-04-12] MEDS: CALCIUM CARBONATE 250 MG/VITAMIN D3 125 UNIT TABLET PO SCH (17:35)
[2017-04-12] MEDS: DONEPEZIL HCL 5 MG TABLET PO SCH (17:36)
[2017-04-12] MEDS: ESCITALOPRAM OXALATE 10 MG TABLET PO SCH (17:37)
[2017-04-12] MEDS ORDERED: (PENDING PHARMACY ID) (Calcium Carbonate/Vitamin D3 [Oyster Shell 500-Vit D3 200 Tb] 1 EAC PO SCH (18:00)
[2017-04-12] MEDS ORDERED: (PENDING PHARMACY ID) (Donepezil Hcl [Aricept] 10 MG) PO SCH (18:00)
[2017-04-13] MEDS: PANTOPRAZOLE SODIUM 40 MG VIAL IV SCH (00:10)
[2017-04-13] MEDS: ATORVASTATIN CALCIUM 20 MG TABLET PO SCH ×2 (00:12→23:09)
[2017-04-13] MEDS: VANCOMYCIN HCL INJ 500 MG VIAL PO SCH ×5 (00:12→23:10)
[2017-04-13] MEDS: LOSARTAN POTASSIUM 50 MG TABLET PO SCH ×2 (00:12→23:08)
[2017-04-13] MEDS: NORMAL SALINE 10 ML SDV (SCHEDULED) IV SCH ×3 (00:13→23:10)
[2017-04-13] MEDS: AMLODIPINE BESYLATE 10 MG TABLET PO SCH ×2 (00:13→23:09)
[2017-04-13] MEDS: POTASSI CL 40 MEQ/D5-1/2NS 1L 40 MEQ/1,000 ML RTUINJ IV PRN (02:00)
[2017-04-13] MEDS: IPRATROPIUM/ALBUTEROL 0.5-2.5 MG/3 ML AMPUL NEB SCH ×4 (02:08→20:30)
[2017-04-13] MEDS: LEVOTHYROXINE SODIUM 0.025 MG TABLET PO SCH (05:54)
[2017-04-13] MEDS: LEVOTHYROXINE SODIUM 0.112 MG TABLET PO SCH (05:54)
[2017-04-13] MEDS ORDERED: (PENDING PHARMACY ID) (Levothyroxine Sodium [Synthroid] 137 MCG) PO SCH (06:00)
[2017-04-13] MEDS: LACTOBACILLUS ACIDOPHILUS 250 MG TAB PO SCH ×2 (09:22→18:00)
[2017-04-13] MEDS: DOCUSATE SODIUM 100 MG CAPSULE PO SCH (09:22)
[2017-04-13] MEDS: METFORMIN HCL 500 MG TABLET PO SCH ×2 (09:22→18:00)
[2017-04-13] MEDS: CEFTRIAXONE 2 GM/D5W RTU 2 GM/50 ML RTUPB IV SCH (09:24)
[2017-04-13] MEDS: ROPINIROLE HCL 2 MG TABLET PO SCH ×2 (09:25→23:08)
[2017-04-13] MEDS: ANASTROZOLE 1 MG TABLET PO SCH (09:25)
[2017-04-13] MEDS: INSULIN GLARGINE,HUM.REC.ANLOG 300 UNIT/3 ML INSULN.PEN SUBCUT SCH (12:43)
[2017-04-13] MEDS: EPLERENONE 25 MG TABLET PO SCH (12:46)
[2017-04-13] MEDS ORDERED: NORMAL SALINE 1000 ML 1,000 ML IV PRN (17:13)
--- NOTE | 2017-04-13 17:53 | PDOC PROGRESS REPORT ---
Subjective Progress Note for:: 04/13/17 Subjective:: Patient is clinically unchanged She appears in no distress She still has a cough that is bothersome with excretion that she has a hard time expectorating No fever no chills Reason For Visit: ACUTE RESPIRATORY FAILURE Physical Exam Vital Signs: Temp Pulse Resp BP Pulse Ox 98.6 F 77 16 122/76 100 04/13/17 16:00 04/13/17 16:00 04/13/17 16:00 04/13/17 16:00 04/13/17 16:00 Intake & Output 04/12/17 04/13/17 04/14/17 00:59 00:59 00:59 Intake Total 2633 2452 730 Output Total 4970 0390 1650 Balance -233 -2027 -920 Weight 85.5 kg 83.5 kg 79.9 kg General appearance: PRESENT: no acute distress, obese, other - Looks very edematous Head exam: PRESENT: atraumatic, normocephalic Eye exam: PRESENT: conjunctival injection Respiratory exam: PRESENT: decreased breath sounds, wheezes. ABSENT: accessory muscle use, crackles Cardiovascular exam: PRESENT: RRR. ABSENT: diastolic murmur, rubs, systolic murmur Pulses: PRESENT: normal dorsalis pedis pul GI/Abdominal exam: PRESENT: normal bowel sounds, soft. ABSENT: distended, guarding, mass, organolmegaly, rebound, tenderness Extremities exam: PRESENT: full ROM, +2 edema - Bilaterally Neurological exam: PRESENT: alert, awake, CN II-XII grossly intact Results Laboratory Results: 04/12/17 09:35 04/12/17 09:35 04/07/17 15:28 Blood Blood Culture - Final NO GROWTH IN 5 DAYS 04/07/17 12:45 Blood Blood Culture - Final NO GROWTH IN 5 DAYS 04/03/17 04/03/17 17:30 21:05 Troponin I 0.039 0.029 Impressions: KUB X-Ray 04/05/17 00:00 IMPRESSION: SATISFACTORY POSITION OF THE NASOGASTRIC TUBE. NO RADIOGRAPHIC EVIDENCE FOR ACUTE ABDOMINAL DISEASE. Chest CT 04/08/17 00:00 IMPRESSION: Changes consistent with bilateral perihilar infiltrates basilar atelectasis with small effusions. Interventional Vascular Procedure 04/09/17 00:00 IMPRESSION: SUCCESSFUL PLACEMENT OF A 5 FR DUAL LUMEN 37 CM PICC IN THE RIGHT BASILIC VEIN. PICC Line Insertion 04/09/17 00:00 IMPRESSION: SUCCESSFUL PLACEMENT OF A 5 FR DUAL LUMEN 37 CM PICC IN THE RIGHT BASILIC VEIN. Chest X-Ray 04/10/17 06:30 IMPRESSION: Bilateral pulmonary alveolar infiltrates unchanged. Interval extubation, removal of NG tube, and right IJ line. Placement of right trans venous PICC line with tip overlying right atrium. Assessment & Plan - Diagnosis (1) Anemia Qualifiers: Anemia type: iron deficiency Is this a current diagnosis for this admission?: Yes Plan: Iron deficiency anemia secondary to GI bleed noted that patient did have blood in the stools and the serum iron was extremely low B12 and folate were normal We will discontinue linezolid at this time which can cause pancytopenia and worsen anemia Replace iron IV Protonix IV every 12 We will follow-up stools for occult blood If GI bleed persist patient may need endoscopy when clinically stable 04/12 repeat CBC today 04/13 last H/H repeat labs in am (2) Acute respiratory failure Qualifiers: Respiratory failure complication: hypoxia Qualified Code(s): J96.01 - Acute respiratory failure with hypoxia Is this a current diagnosis for this admission?: Yes Plan: Secondary to bilateral pneumonia Patient did have Salmonella in the sputum ? Is it Salmonella pneumonia Salmonella was sensitive to cefepime Switch to cefepime IV 04/13/17 Patient currently is on ceftriaxone 2 g IV piggyback daily Case had been discussed with infectious disease at [facility] Patient to complete a course of a total of 14 days after negative culture for bacteremia las dose on 04/21/2017 (3) Angioedema Qualifiers: Encounter type: initial encounter Qualified Code(s): T78.3XXA - Angioneurotic edema, initial encounter Is this a current diagnosis for this admission?: Yes (4) C. difficile diarrhea Is this a current diagnosis for this admission?: Yes Plan: Patient is currently on vancomycin p.o. Complete treatment on 03/28/2017 i nfectious disease advised to treat for an other 7 days as the patient is on IV antibiotics (5) GI bleed Qualifiers: GI bleed type/associated pathology: unspecified gastrointestinal hemorrhage type Qualified Code(s): K92.2 - Gastrointestinal hemorrhage, unspecified Is this a current diagnosis for this admission?: Yes Plan: patient has positive occult blood in her stools We will speak with family and discuss EGD and colonoscopy as an outpatient if bleeding persists Patient is certainly not stable at this time to undergo investigations (6) Pneumonia Qualifiers: Pneumonia type: due to unspecified organism Laterality: unspecified laterality Lung location: unspecified part of lung Qualified Code(s): J18.9 - Pneumonia, unspecified organism Is this a current diagnosis for this admission?: Yes (7) Salmonella Is this a current diagnosis for this admission?: Yes - Time Time Spent with patient: Patient will remain in the hospital for another 48-72 hours \we will discuss with family short-term rehab Time Spent with patient: 25-34 minutes
[2017-04-13] MEDS: DONEPEZIL HCL 5 MG TABLET PO SCH (18:00)
[2017-04-13] MEDS: CALCIUM CARBONATE 250 MG/VITAMIN D3 125 UNIT TABLET PO SCH (18:00)
[2017-04-13] MEDS: ESCITALOPRAM OXALATE 10 MG TABLET PO SCH (18:00)
[2017-04-13 19:45] LABS: ANION GAP 7 (5-19); BLOOD UREA NITROGEN 9 mg/dL (7-20); CALCIUM 8.7 mg/dL (8.4-10.2); CARBON DIOXIDE 33 mmol/L (22-30); CHLORIDE 95 mmol/L (98-107); GLUCOSE 140 mg/dL (75-110); POTASSIUM 4.9 mmol/L (3.6-5.0); SODIUM 134.6 mmol/L (137-145)
[2017-04-14] MEDS: IPRATROPIUM/ALBUTEROL 0.5-2.5 MG/3 ML AMPUL NEB SCH ×4 (01:10→20:38)
[2017-04-14] MEDS: LEVOTHYROXINE SODIUM 0.112 MG TABLET PO SCH (05:35)
[2017-04-14] MEDS: VANCOMYCIN HCL INJ 500 MG VIAL PO SCH ×4 (05:36→23:22)
[2017-04-14] MEDS: LEVOTHYROXINE SODIUM 0.025 MG TABLET PO SCH (05:36)
[2017-04-14 06:09] LABS: HEMATOCRIT 33.1 % (36.0-47.0); HEMOGLOBIN 10.7 g/dL (12.0-15.5); MEAN CORPUSCULAR HGB CONC 32.3 g/dL (32.0-36.0); MEAN CORPUSCULAR VOLUME 87 fl (80-97); PLATELET COUNT 403 10^3/uL (150-450); RED BLOOD COUNT 3.82 10^6/uL (3.72-5.28); RED CELL DISTRIBUTION WIDTH 16.2 % (11.5-14.0); WHITE BLOOD COUNT 10.9 10^3/uL (4.0-10.5)
[2017-04-14 06:27] LABS: ANION GAP 6 (5-19); BLOOD UREA NITROGEN 9 mg/dL (7-20); CALCIUM 8.1 mg/dL (8.4-10.2); CARBON DIOXIDE 32 mmol/L (22-30); CHLORIDE 95 mmol/L (98-107); GLUCOSE 133 mg/dL (75-110); POTASSIUM 5.3 mmol/L (3.6-5.0); SODIUM 133.4 mmol/L (137-145)
[2017-04-14 07:16] LABS: ABSOLUTE LYMPHOCYTES# (MANUAL) 0.5 10^3/uL (0.5-4.7); ABSOLUTE MONOCYTES # (MANUAL) 1.3 10^3/uL (0.1-1.4); ABSOLUTE NEUTROPHILS# (MANUAL) 8.9 10^3/uL (1.7-8.2); BASOPHILS % (MANUAL) 0 % (0-2); EOSINOPHILS % (MANUAL) 1 % (0-6); LYMPHOCYTES % (MANUAL) 5 % (13-45); MONOCYTES % (MANUAL) 12 % (3-13); SEGMENTED NEUTROPHILS % (MAN) 82 % (42-78); TOTAL CELLS COUNTED 100
[2017-04-14 07:18] LABS: ANISOCYTOSIS 1+; POIKILOCYTOSIS SLIGHT
[2017-04-14 07:19] LABS: OVALOCYTES SLIGHT
[2017-04-14 07:20] LABS: PLATELET COMMENT ADEQUATE; POLYCHROMASIA SLIGHT
[2017-04-14] MEDS: LACTOBACILLUS ACIDOPHILUS 250 MG TAB PO SCH ×2 (11:00→18:18)
[2017-04-14] MEDS: CEFTRIAXONE 2 GM/D5W RTU 2 GM/50 ML RTUPB IV SCH (11:00)
[2017-04-14] MEDS: METFORMIN HCL 500 MG TABLET PO SCH ×2 (11:00→18:18)
[2017-04-14] MEDS: ROPINIROLE HCL 2 MG TABLET PO SCH ×2 (11:00→23:21)
[2017-04-14] MEDS: NORMAL SALINE 10 ML SDV (SCHEDULED) IV SCH ×2 (11:01→23:32)
[2017-04-14] MEDS: INSULIN GLARGINE,HUM.REC.ANLOG 300 UNIT/3 ML INSULN.PEN SUBCUT SCH (11:01)
[2017-04-14] MEDS: ANASTROZOLE 1 MG TABLET PO SCH (11:01)
[2017-04-14] MEDS: DOCUSATE SODIUM 100 MG CAPSULE PO SCH (11:02)
--- NOTE | 2017-04-14 11:37 | PDOC PROGRESS REPORT ---
Subjective Progress Note for:: 04/14/17 Subjective:: Patient is seen on rounds. She is resting comfortably in bed. She denies any shortness of breath, chest pain or dyspnea. She denies any nausea, abdominal pain or diarrhea. She denies any fevers or chills. She denies any significant arthralgias or myalgias. Remaining review of systems are negative Reason For Visit: ACUTE RESPIRATORY FAILURE Physical Exam Vital Signs: Temp Pulse Resp BP Pulse Ox 99.3 F 90 18 175/70 H 99 04/14/17 07:49 04/14/17 08:00 04/14/17 07:54 04/14/17 07:49 04/14/17 07:54 Intake & Output 04/13/17 04/14/17 04/15/17 06:59 06:59 06:59 Intake Total 2718 1500 Output Total 4755 1425 Balance -2036 75 Weight 79.9 kg 80.1 kg General appearance: PRESENT: no acute distress, obese, well-developed, well- nourished Head exam: PRESENT: atraumatic, normocephalic Eye exam: PRESENT: conjunctiva pink, EOMI, PERRLA. ABSENT: scleral icterus Ear exam: PRESENT: normal external ear exam Mouth exam: PRESENT: moist, tongue midline Neck exam: ABSENT: carotid bruit, JVD, lymphadenopathy, thyromegaly Respiratory exam: PRESENT: rhonchi, symmetrical, unlabored Cardiovascular exam: PRESENT: RRR. ABSENT: diastolic murmur, rubs, systolic murmur Pulses: PRESENT: normal dorsalis pedis pul Vascular exam: PRESENT: normal capillary refill GI/Abdominal exam: PRESENT: normal bowel sounds, soft. ABSENT: distended, guarding, mass, organolmegaly, rebound, tenderness Rectal exam: PRESENT: deferred Extremities exam: PRESENT: full ROM. ABSENT: calf tenderness, clubbing, pedal edema Neurological exam: PRESENT: alert, awake, oriented to person, oriented to place , oriented to time, oriented to situation, CN II-XII grossly intact. ABSENT: motor sensory deficit Psychiatric exam: PRESENT: appropriate affect, normal mood. ABSENT: homicidal ideation, suicidal ideation Skin exam: PRESENT: dry, intact, warm. ABSENT: cyanosis, rash Results Laboratory Results: 04/14/17 05:50 04/14/17 05:50 04/13/17 04/14/17 04/14/17 18:49 05:50 05:50 WBC 10.9 H RBC 3.82 Hgb 10.7 L Hct 33.1 L MCV 87 MCH 28.0 MCHC 32.3 RDW 16.2 H Plt Count 403 Seg Neutrophils % Not Reportable Lymphocytes % Not Reportable Monocytes % Not Reportable Eosinophils % Not Reportable Basophils % Not Reportable Absolute Neutrophils Not Reportable Absolute Lymphocytes Not Reportable Absolute Monocytes Not Reportable Absolute Eosinophils Not Reportable Absolute Basophils Not Reportable Sodium 134.6 L 133.4 L Potassium 4.9 5.3 H Chloride 95 L 95 L Carbon Dioxide 33 H 32 H Anion Gap 7 6 BUN 9 9 Creatinine 0.57 0.51 L Est GFR ( Amer) > 60 > 60 Est GFR (Non-Af Amer) > 60 > 60 Glucose 140 H 133 H Calcium 8.7 8.1 L 04/03/17 04/03/17 17:30 21:05 Troponin I 0.039 0.029 Impressions: KUB X-Ray 04/05/17 00:00 IMPRESSION: SATISFACTORY POSITION OF THE NASOGASTRIC TUBE. NO RADIOGRAPHIC EVIDENCE FOR ACUTE ABDOMINAL DISEASE. Chest CT 04/08/17 00:00 IMPRESSION: Changes consistent with bilateral perihilar infiltrates basilar atelectasis with small effusions. Interventional Vascular Procedure 04/09/17 00:00 IMPRESSION: SUCCESSFUL PLACEMENT OF A 5 FR DUAL LUMEN 37 CM PICC IN THE RIGHT BASILIC VEIN. PICC Line Insertion 04/09/17 00:00 IMPRESSION: SUCCESSFUL PLACEMENT OF A 5 FR DUAL LUMEN 37 CM PICC IN THE RIGHT BASILIC VEIN. Chest X-Ray 04/10/17 06:30 IMPRESSION: Bilateral pulmonary alveolar infiltrates unchanged. Interval extubation, removal of NG tube, and right IJ line. Placement of right trans venous PICC line with tip overlying right atrium. Assessment & Plan - Diagnosis (1) Acute respiratory failure Qualifiers: Respiratory failure complication: hypoxia Qualified Code(s): J96.01 - Acute respiratory failure with hypoxia Is this a current diagnosis for this admission?: Yes Plan: Improving. Wean oxygen. Continue antibiotic therapy (2) Allergic reaction Qualifiers: Encounter type: initial encounter Qualified Code(s): T78.40XA - Allergy, unspecified, initial encounter Is this a current diagnosis for this admission?: Yes (3) Angioedema Qualifiers: Encounter type: initial encounter Qualified Code(s): T78.3XXA - Angioneurotic edema, initial encounter Is this a current diagnosis for this admission?: Yes Plan: REsolved (4) Bacteremia associated with intravascular line Qualifiers: Encounter type: sequela Qualified Code(s): T82.7XXS - Infection and inflammatory reaction due to other cardiac and vascular devices, implants and grafts, sequela; R78.81 - Bacteremia; R78.81 - Bacteremia Is this a current diagnosis for this admission?: Yes Plan: Continue antibiotics (5) C. difficile diarrhea Is this a current diagnosis for this admission?: Yes (6) Diabetes Qualifiers: Diabetes mellitus type: type 2 Diabetes mellitus complication status: with unspecified complications Diabetes mellitus residential insulin use: without residential use Qualified Code(s): E11.8 - Type 2 diabetes mellitus with unspecified complications Is this a current diagnosis for this admission?: Yes (7) Hypokalemia Is this a current diagnosis for this admission?: Yes Plan: Cover and monitor (8) Pneumonia Qualifiers: Pneumonia type: due to unspecified organism Laterality: unspecified laterality Lung location: unspecified part of lung Qualified Code(s): J18.9 - Pneumonia, unspecified organism Is this a current diagnosis for this admission?: Yes (9) Pulmonary hypertension Is this a current diagnosis for this admission?: Yes (10) Salmonella Is this a current diagnosis for this admission?: Yes Plan: Continue present therapy for another 48 hrs - Time Time Spent with patient: 15-24 minutes Total Critical Time (Minutes): 15 Medications reviewed and adjusted accordingly: Yes
[2017-04-14] MEDS: EPLERENONE 25 MG TABLET PO SCH (13:02)
[2017-04-14] MEDS: CALCIUM CARBONATE 250 MG/VITAMIN D3 125 UNIT TABLET PO SCH (18:18)
[2017-04-14] MEDS: ESCITALOPRAM OXALATE 10 MG TABLET PO SCH (18:18)
[2017-04-14] MEDS: DONEPEZIL HCL 5 MG TABLET PO SCH (18:18)
[2017-04-14] MEDS: ATORVASTATIN CALCIUM 20 MG TABLET PO SCH (23:21)
[2017-04-14] MEDS: AMLODIPINE BESYLATE 10 MG TABLET PO SCH (23:21)
[2017-04-14] MEDS: LOSARTAN POTASSIUM 50 MG TABLET PO SCH (23:22)
[2017-04-15] MEDS: IPRATROPIUM/ALBUTEROL 0.5-2.5 MG/3 ML AMPUL NEB SCH ×4 (02:16→20:06)
[2017-04-15] MEDS: VANCOMYCIN HCL INJ 500 MG VIAL PO SCH ×4 (06:12→22:08)
[2017-04-15] MEDS: LEVOTHYROXINE SODIUM 0.112 MG TABLET PO SCH (06:13)
[2017-04-15] MEDS: LEVOTHYROXINE SODIUM 0.025 MG TABLET PO SCH (06:13)
[2017-04-15] MEDS: CEFTRIAXONE 2 GM/D5W RTU 2 GM/50 ML RTUPB IV SCH (09:15)
[2017-04-15] MEDS: INSULIN GLARGINE,HUM.REC.ANLOG 300 UNIT/3 ML INSULN.PEN SUBCUT SCH (09:15)
[2017-04-15] MEDS: ROPINIROLE HCL 2 MG TABLET PO SCH ×2 (09:16→22:09)
[2017-04-15] MEDS: ANASTROZOLE 1 MG TABLET PO SCH (09:16)
[2017-04-15] MEDS: METFORMIN HCL 500 MG TABLET PO SCH ×2 (09:17→17:52)
[2017-04-15] MEDS: LACTOBACILLUS ACIDOPHILUS 250 MG TAB PO SCH ×2 (09:17→17:52)
[2017-04-15] MEDS: NORMAL SALINE 10 ML SDV (SCHEDULED) IV SCH ×2 (09:18→22:09)
[2017-04-15] MEDS: DOCUSATE SODIUM 100 MG CAPSULE PO SCH (09:18)
--- NOTE | 2017-04-15 11:46 | PDOC PROGRESS REPORT ---
Subjective Progress Note for:: 04/15/17 Subjective:: Patient is seen on rounds. She is resting comfortably in bed. She denies any shortness of breath, chest pain or dyspnea. She denies any nausea, abdominal pain or diarrhea. She denies any fevers or chills. She denies any significant arthralgias or myalgias. Remaining review of systems are negative Reason For Visit: ACUTE RESPIRATORY FAILURE Physical Exam Vital Signs: Temp Pulse Resp BP Pulse Ox 99.1 F 78 16 145/60 H 98 04/15/17 07:43 04/15/17 08:05 04/15/17 08:05 04/15/17 07:43 04/15/17 08:05 Intake & Output 04/14/17 04/15/17 04/16/17 06:59 06:59 06:59 Intake Total 1500 890 Output Total 1425 1050 Balance 75 -160 Weight 80.1 kg 78.9 kg General appearance: PRESENT: no acute distress, obese, well-developed, well- nourished Head exam: PRESENT: atraumatic, normocephalic Eye exam: PRESENT: conjunctiva pink, EOMI, PERRLA. ABSENT: scleral icterus Ear exam: PRESENT: normal external ear exam Mouth exam: PRESENT: moist, tongue midline Neck exam: ABSENT: carotid bruit, JVD, lymphadenopathy, thyromegaly Respiratory exam: PRESENT: clear to auscultation quinten. ABSENT: rales, rhonchi, wheezes Cardiovascular exam: PRESENT: RRR. ABSENT: diastolic murmur, rubs, systolic murmur Pulses: PRESENT: normal dorsalis pedis pul Vascular exam: PRESENT: normal capillary refill GI/Abdominal exam: PRESENT: normal bowel sounds, soft. ABSENT: distended, guarding, mass, organolmegaly, rebound, tenderness Rectal exam: PRESENT: deferred Extremities exam: PRESENT: full ROM. ABSENT: calf tenderness, clubbing, pedal edema Neurological exam: PRESENT: alert, awake, oriented to person, oriented to place , oriented to time, CN II-XII grossly intact. ABSENT: motor sensory deficit Psychiatric exam: PRESENT: flat affect Skin exam: PRESENT: dry, intact, warm. ABSENT: cyanosis, rash Results Laboratory Results: 04/14/17 05:50 04/14/17 05:50 04/03/17 04/03/17 17:30 21:05 Troponin I 0.039 0.029 Impressions: KUB X-Ray 04/05/17 00:00 IMPRESSION: SATISFACTORY POSITION OF THE NASOGASTRIC TUBE. NO RADIOGRAPHIC EVIDENCE FOR ACUTE ABDOMINAL DISEASE. Chest CT 04/08/17 00:00 IMPRESSION: Changes consistent with bilateral perihilar infiltrates basilar atelectasis with small effusions. Interventional Vascular Procedure 04/09/17 00:00 IMPRESSION: SUCCESSFUL PLACEMENT OF A 5 FR DUAL LUMEN 37 CM PICC IN THE RIGHT BASILIC VEIN. PICC Line Insertion 04/09/17 00:00 IMPRESSION: SUCCESSFUL PLACEMENT OF A 5 FR DUAL LUMEN 37 CM PICC IN THE RIGHT BASILIC VEIN. Chest X-Ray 04/10/17 06:30 IMPRESSION: Bilateral pulmonary alveolar infiltrates unchanged. Interval extubation, removal of NG tube, and right IJ line. Placement of right trans venous PICC line with tip overlying right atrium. Assessment & Plan - Diagnosis (1) Acute respiratory failure Qualifiers: Respiratory failure complication: hypoxia Qualified Code(s): J96.01 - Acute respiratory failure with hypoxia Is this a current diagnosis for this admission?: Yes Plan: Improving. Wean oxygen as tolerates (2) Allergic reaction Qualifiers: Encounter type: initial encounter Qualified Code(s): T78.40XA - Allergy, unspecified, initial encounter Is this a current diagnosis for this admission?: Yes Plan: Unknown cause (3) Angioedema Qualifiers: Encounter type: initial encounter Qualified Code(s): T78.3XXA - Angioneurotic edema, initial encounter Is this a current diagnosis for this admission?: Yes Plan: REsolved (4) Bacteremia associated with intravascular line Qualifiers: Encounter type: sequela Qualified Code(s): T82.7XXS - Infection and inflammatory reaction due to other cardiac and vascular devices, implants and grafts, sequela; R78.81 - Bacteremia; R78.81 - Bacteremia Is this a current diagnosis for this admission?: Yes Plan: Continue Ceftriazone until 04/21 as directed by [facility]. (5) C. difficile diarrhea Is this a current diagnosis for this admission?: Yes Plan: Continue oral vancomycin diarrhea resolved (6) Diabetes Qualifiers: Diabetes mellitus type: type 2 Diabetes mellitus complication status: with unspecified complications Diabetes mellitus half-way insulin use: without half-way use Qualified Code(s): E11.8 - Type 2 diabetes mellitus with unspecified complications Is this a current diagnosis for this admission?: Yes Plan: Continue home meds and sliding scale coverage (7) Hypokalemia Is this a current diagnosis for this admission?: Yes Plan: Cover and monitor (8) Pneumonia Qualifiers: Pneumonia type: due to unspecified organism Laterality: unspecified laterality Lung location: unspecified part of lung Qualified Code(s): J18.9 - Pneumonia, unspecified organism Is this a current diagnosis for this admission?: Yes Plan: Treated (9) Pulmonary hypertension Is this a current diagnosis for this admission?: Yes (10) Salmonella Is this a current diagnosis for this admission?: Yes Plan: Therapy completed
[2017-04-15] MEDS: EPLERENONE 25 MG TABLET PO SCH (12:04)
[2017-04-15] MEDS: ESCITALOPRAM OXALATE 10 MG TABLET PO SCH (17:52)
[2017-04-15] MEDS: CALCIUM CARBONATE 250 MG/VITAMIN D3 125 UNIT TABLET PO SCH (17:52)
[2017-04-15] MEDS: DONEPEZIL HCL 5 MG TABLET PO SCH (17:52)
[2017-04-15] MEDS: ACETAMINOPHEN SOLN 325 MG/10.15 ML UDCUP NG PRN (22:08)
[2017-04-15] MEDS: ATORVASTATIN CALCIUM 20 MG TABLET PO SCH (22:09)
[2017-04-15] MEDS: LOSARTAN POTASSIUM 50 MG TABLET PO SCH (22:10)
[2017-04-15] MEDS: AMLODIPINE BESYLATE 10 MG TABLET PO SCH (22:10)
[2017-04-16] MEDS: IPRATROPIUM/ALBUTEROL 0.5-2.5 MG/3 ML AMPUL NEB SCH ×4 (02:27→19:40)
[2017-04-16] MEDS: LEVOTHYROXINE SODIUM 0.025 MG TABLET PO SCH (05:53)
[2017-04-16] MEDS: LEVOTHYROXINE SODIUM 0.112 MG TABLET PO SCH (05:53)
[2017-04-16] MEDS: VANCOMYCIN HCL INJ 500 MG VIAL PO SCH ×4 (05:53→23:46)
[2017-04-16 06:27] LABS: ANION GAP 6 (5-19); BLOOD UREA NITROGEN 11 mg/dL (7-20); CALCIUM 8.9 mg/dL (8.4-10.2); CARBON DIOXIDE 32 mmol/L (22-30); CHLORIDE 92 mmol/L (98-107); GLUCOSE 108 mg/dL (75-110); POTASSIUM 4.6 mmol/L (3.6-5.0); SODIUM 130.1 mmol/L (137-145)
[2017-04-16 07:26] LABS: ABSOLUTE BASOPHILS # (AUTO) 0.1 10^3/uL (0.0-0.2); ABSOLUTE EOSINOPHILS # (AUTO) 0.1 10^3/uL (0.0-0.6); ABSOLUTE MONOCYTES (AUTO) 1.1 10^3/uL (0.1-1.4); ABSOLUTE NEUT (AUTO) 3.2 10^3/uL (1.7-8.2); BASOPHILS % (AUTO) 1.1 % (0-2); EOSINOPHILS % (AUTO) 1.1 % (0-6); HEMATOCRIT 31.6 % (36.0-47.0); HEMOGLOBIN 10.4 g/dL (12.0-15.5); LYMPHOCYTES % (AUTO) 19.2 % (13-45); MEAN CORPUSCULAR HEMOGLOBIN 28.2 pg (27.0-33.4); MEAN CORPUSCULAR VOLUME 86 fl (80-97); MONOCYTES % (AUTO) 19.9 % (3-13); PLATELET COUNT 537 10^3/uL (150-450); RED CELL DISTRIBUTION WIDTH 16.7 % (11.5-14.0); SEGMENTED NEUTROPHILS % (AUTO) 58.7 % (42-78); TOTAL CELLS COUNTED % (AUTO) 100 %; WHITE BLOOD COUNT 5.4 10^3/uL (4.0-10.5)
[2017-04-16] MEDS: NORMAL SALINE 10 ML SDV (SCHEDULED) IV SCH ×2 (11:46→21:50)
[2017-04-16] MEDS: LACTOBACILLUS ACIDOPHILUS 250 MG TAB PO SCH ×2 (11:47→18:08)
[2017-04-16] MEDS: DOCUSATE SODIUM 100 MG CAPSULE PO SCH (11:48)
[2017-04-16] MEDS: ANASTROZOLE 1 MG TABLET PO SCH (11:48)
[2017-04-16] MEDS: METFORMIN HCL 500 MG TABLET PO SCH ×2 (11:48→18:08)
[2017-04-16] MEDS: INSULIN GLARGINE,HUM.REC.ANLOG 300 UNIT/3 ML INSULN.PEN SUBCUT SCH (11:51)
[2017-04-16] MEDS: CEFTRIAXONE 2 GM/D5W RTU 2 GM/50 ML RTUPB IV SCH (11:53)
[2017-04-16] MEDS: ROPINIROLE HCL 2 MG TABLET PO SCH ×2 (11:55→21:50)
[2017-04-16] MEDS: EPLERENONE 25 MG TABLET PO SCH (11:56)
--- NOTE | 2017-04-16 12:58 | PDOC CONSULTATION ---
Consultation Consult Date: 04/16/17 Attending physician:: NERI RESENDIZ Consult reason:: asked to see this patient by Dr Perkins. patient has possible GI bleed, iron deficiency anemia, C. Diff colitis History of Present Illness Admission Date/PCP: 04/03/17 15:45 ALKA CARLOS PA-C History of Present Illness: Asked to see this patient had significant respiratory issues last week , but today appears stable and comfortable on nasal cannula was noted to have iron deficiency anemia patient seems to remember having an M2A capsule at [facility] in the past patient has diarrhea that noted C.Diff colitis patient states no shortness of breath, currently on antibiotics, for pneumonia patient states does not see any gross blood for her age, she appears to have a good memory and appropriate mental status patient denies any any nausea or vomiting there is no fever or chills she does see ms Alka Cralos as an outpatient Past Medical History Cardiac Medical History: Reports: Hyperlipidema EENT Medical History: Reports: None Neurological Medical History: Reports: None Endocrine Medical History: Reports: Diabetes Mellitus Type 2, Hypothyroidism Renal/ Medical History: Reports: None Malignancy Medical History: Reports: None GI Medical History: Reports: Other - GI bleeding of unknown source Psychiatric Medical History: Reports: Dementia, Depression Hematology: Reports: Anemia Infectious Medical History: Denies: Other Past Surgical History Past Surgical History: Reports: Other - Colonoscopies Social History Smoking Status: Unknown if Ever Smoked Frequency of Alcohol Use: None Hx Recreational Drug Use: No Drugs: None Hx Prescription Drug Abuse: Yes - Advance Directive Resuscitation Status: Do Not Intubate Family History Family History: Reviewed & Not Pertinent Parental Family History Reviewed: Yes Children Family History Reviewed: Unknown Sibling(s) Family History Reviewed.: Unknown Medication/Allergy Home Medications: Amlodipine Besylate [Norvasc 10 mg Tablet] 10 mg PO QHS 04/03/17 Anastrozole [Arimidex 1 mg Tablet] 1 mg PO DAILY 04/03/17 Aspirin [Aspirin 325 mg Tablet] 325 mg PO QHS 04/03/17 Atorvastatin Calcium [Lipitor 20 mg Tablet] 20 mg PO QHS 04/03/17 Calcium Carbonate/Vitamin D3 [Oyster Shell Calcium-Vit D Tab] 1 each PO QPM Donepezil HCl [Aricept] 10 mg PO QPM 04/03/17 Eplerenone [Inspra] 50 mg PO DAILY 04/03/17 Escitalopram Oxalate [Lexapro 10 mg Tablet] 10 mg PO QPM 04/03/17 Glimepiride [Amaryl 1 mg Tablet] 1 mg PO BID 04/03/17 Levothyroxine Sodium [Synthroid] 137 mcg PO Q6AM 04/03/17 Losartan Potassium [Cozaar 50 mg Tablet] 50 mg PO QHS 04/03/17 Metformin HCl [Glucophage 500 mg Tablet] 500 mg PO BID 04/03/17 Omeprazole Magnesium [Prilosec Otc] 20 mg PO QHS 04/03/17 Ropinirole HCl [Requip 2 Mg Tablet] 2 mg PO Q12 04/03/17 Sitagliptin Phosphate [Januvia 50 mg Tablet] 50 mg PO Q12 04/03/17 Allergies/Adverse Reactions: diazepam [From Valium] Allergy (Verified 04/03/17 15:08) Review of Systems Constitutional: ABSENT: fever(s), headache(s), night sweats, weakness Eyes: ABSENT: visual disturbances Ears: ABSENT: hearing changes Nose, Mouth, and Throat: ABSENT: mouth pain, sore throat Cardiovascular: ABSENT: edema, orthropnea, palpitations Respiratory: ABSENT: dyspnea, hemoptysis Gastrointestinal: PRESENT: diarrhea. ABSENT: dysphagia, melena, nausea, vomiting Genitourinary: ABSENT: dysuria, hematuria Musculoskeletal: ABSENT: deformity, joint swelling Integumentary: ABSENT: lesions, pruritus Neurological: ABSENT: syncope, tingling, tremor(s), vertigo Endocrine: ABSENT: polydipsia, polyphagia, polyuria Hematologic/Lymphatic: ABSENT: easy bruising Physical Exam Vital Signs: Temp Pulse Resp BP Pulse Ox 98.5 F 72 18 130/44 H 97 04/16/17 12:00 04/16/17 12:00 04/16/17 12:00 04/16/17 12:00 04/16/17 12:00 Intake & Output 04/15/17 04/16/17 04/17/17 06:59 06:59 06:59 Intake Total 890 1090 Output Total 1050 1050 Balance -160 40 Weight 78.9 kg 79 kg General appearance: PRESENT: no acute distress, well-developed, well-nourished Head exam: PRESENT: atraumatic, normocephalic Eye exam: PRESENT: EOMI, PERRLA. ABSENT: nystagmus, periorbital swelling, scleral icterus Mouth exam: PRESENT: moist, neck supple Throat exam: ABSENT: tonsillar exudate, tonsillogmegaly Neck exam: ABSENT: meningismus, tenderness, thyromegaly Respiratory exam: PRESENT: symmetrical, unlabored. ABSENT: tachypnea, wheezes Cardiovascular exam: PRESENT: RRR, +S1, +S2 GI/Abdominal exam: PRESENT: soft. ABSENT: Simon's sign, rebound, rigid, tenderness Extremities exam: ABSENT: joint swelling Musculoskeletal exam: PRESENT: full ROM Neurological exam: PRESENT: oriented to time, oriented to situation, CN II-XII grossly intact Psychiatric exam: PRESENT: appropriate affect Skin exam: PRESENT: normal color. ABSENT: mottled, pallor, petechiae, urticaria , vesicles Results Laboratory Results: 04/16/17 05:59 04/16/17 05:59 04/16/17 04/16/17 05:59 05:59 WBC 5.4 RBC 3.70 L Hgb 10.4 L Hct 31.6 L MCV 86 MCH 28.2 MCHC 33.0 RDW 16.7 H Plt Count 537 H Seg Neutrophils % 58.7 Lymphocytes % 19.2 Monocytes % 19.9 H Eosinophils % 1.1 Basophils % 1.1 Absolute Neutrophils 3.2 Absolute Lymphocytes 1.0 Absolute Monocytes 1.1 Absolute Eosinophils 0.1 Absolute Basophils 0.1 Sodium 130.1 L Potassium 4.6 Chloride 92 L Carbon Dioxide 32 H Anion Gap 6 BUN 11 Creatinine 0.47 L Est GFR ( Amer) > 60 Est GFR (Non-Af Amer) > 60 Glucose 108 Calcium 8.9 04/03/17 04/03/17 17:30 21:05 Troponin I 0.039 0.029 Impressions: KUB X-Ray 04/05/17 00:00 IMPRESSION: SATISFACTORY POSITION OF THE NASOGASTRIC TUBE. NO RADIOGRAPHIC EVIDENCE FOR ACUTE ABDOMINAL DISEASE. Chest CT 04/08/17 00:00 IMPRESSION: Changes consistent with bilateral perihilar infiltrates basilar atelectasis with small effusions. Interventional Vascular Procedure 04/09/17 00:00 IMPRESSION: SUCCESSFUL PLACEMENT OF A 5 FR DUAL LUMEN 37 CM PICC IN THE RIGHT BASILIC VEIN. PICC Line Insertion 04/09/17 00:00 IMPRESSION: SUCCESSFUL PLACEMENT OF A 5 FR DUAL LUMEN 37 CM PICC IN THE RIGHT BASILIC VEIN. Chest X-Ray 04/10/17 06:30 IMPRESSION: Bilateral pulmonary alveolar infiltrates unchanged. Interval extubation, removal of NG tube, and right IJ line. Placement of right trans venous PICC line with tip overlying right atrium. Assessment & Plan - Diagnosis (1) Anemia Qualifiers: Anemia type: iron deficiency Is this a current diagnosis for this admission?: Yes Plan: iron deficiency, likely chronic but could be due to GI bleeding she did require transfusion patient seems to be able to recall an M2A capsule test done at [facility] in the past will start with EGD Risks, benefits and alternatives are discussed with the patient in detail further recommendations to follow will try to get report of that M2A test may need colonoscopy as an out patient (2) C. difficile diarrhea Is this a current diagnosis for this admission?: Yes Plan: continue antibiotics for now will try to get old records, given her age, if she has had a documented completed, in the setting of a good prep, may not have to repeat - Time Time Spent: 50 to 70 Minutes
--- NOTE | 2017-04-16 17:29 | PDOC PROGRESS REPORT ---
Subjective Progress Note for:: 04/16/17 Subjective:: Pt states that she is feeling better this morning. Nursing did not report any issues overnight. Reason For Visit: ACUTE RESPIRATORY FAILURE Physical Exam Vital Signs: Temp Pulse Resp BP Pulse Ox 98.5 F 76 17 155/54 H 94 04/16/17 15:21 04/16/17 15:21 04/16/17 15:21 04/16/17 15:21 04/16/17 15:21 Intake & Output 04/15/17 04/16/17 04/17/17 06:59 06:59 06:59 Intake Total 890 1090 Output Total 1050 1050 Balance -160 40 Weight 78.9 kg 79 kg General appearance: PRESENT: no acute distress, well-developed, well-nourished Head exam: PRESENT: atraumatic, normocephalic Eye exam: PRESENT: conjunctiva pink, EOMI. ABSENT: scleral icterus Ear exam: PRESENT: normal external ear exam Mouth exam: PRESENT: moist, tongue midline Neck exam: ABSENT: carotid bruit, JVD, lymphadenopathy, thyromegaly Respiratory exam: PRESENT: clear to auscultation quinten. ABSENT: rales, rhonchi, wheezes Cardiovascular exam: PRESENT: RRR. ABSENT: diastolic murmur, rubs, systolic murmur Pulses: PRESENT: normal dorsalis pedis pul Vascular exam: PRESENT: normal capillary refill GI/Abdominal exam: PRESENT: normal bowel sounds, soft. ABSENT: distended, guarding, mass, organolmegaly, rebound, tenderness Rectal exam: PRESENT: deferred Extremities exam: PRESENT: full ROM. ABSENT: calf tenderness, clubbing, pedal edema Neurological exam: PRESENT: alert, awake, oriented to person, oriented to place , oriented to time, oriented to situation, CN II-XII grossly intact. ABSENT: motor sensory deficit Psychiatric exam: PRESENT: appropriate affect, normal mood. ABSENT: homicidal ideation, suicidal ideation Skin exam: PRESENT: dry, intact, warm. ABSENT: cyanosis, rash Results Laboratory Results: 04/16/17 05:59 04/16/17 05:59 04/16/17 04/16/17 05:59 05:59 WBC 5.4 RBC 3.70 L Hgb 10.4 L Hct 31.6 L MCV 86 MCH 28.2 MCHC 33.0 RDW 16.7 H Plt Count 537 H Seg Neutrophils % 58.7 Lymphocytes % 19.2 Monocytes % 19.9 H Eosinophils % 1.1 Basophils % 1.1 Absolute Neutrophils 3.2 Absolute Lymphocytes 1.0 Absolute Monocytes 1.1 Absolute Eosinophils 0.1 Absolute Basophils 0.1 Sodium 130.1 L Potassium 4.6 Chloride 92 L Carbon Dioxide 32 H Anion Gap 6 BUN 11 Creatinine 0.47 L Est GFR ( Amer) > 60 Est GFR (Non-Af Amer) > 60 Glucose 108 Calcium 8.9 04/03/17 04/03/17 17:30 21:05 Troponin I 0.039 0.029 Impressions: KUB X-Ray 04/05/17 00:00 IMPRESSION: SATISFACTORY POSITION OF THE NASOGASTRIC TUBE. NO RADIOGRAPHIC EVIDENCE FOR ACUTE ABDOMINAL DISEASE. Chest CT 04/08/17 00:00 IMPRESSION: Changes consistent with bilateral perihilar infiltrates basilar atelectasis with small effusions. Interventional Vascular Procedure 04/09/17 00:00 IMPRESSION: SUCCESSFUL PLACEMENT OF A 5 FR DUAL LUMEN 37 CM PICC IN THE RIGHT BASILIC VEIN. PICC Line Insertion 04/09/17 00:00 IMPRESSION: SUCCESSFUL PLACEMENT OF A 5 FR DUAL LUMEN 37 CM PICC IN THE RIGHT BASILIC VEIN. Chest X-Ray 04/10/17 06:30 IMPRESSION: Bilateral pulmonary alveolar infiltrates unchanged. Interval extubation, removal of NG tube, and right IJ line. Placement of right trans venous PICC line with tip overlying right atrium. Assessment & Plan - Diagnosis (1) Acute respiratory failure Qualifiers: Respiratory failure complication: hypoxia Qualified Code(s): J96.01 - Acute respiratory failure with hypoxia Is this a current diagnosis for this admission?: Yes Plan: Secondary to Pneumonia: Resolved. (2) Allergic reaction Qualifiers: Encounter type: initial encounter Qualified Code(s): T78.40XA - Allergy, unspecified, initial encounter Is this a current diagnosis for this admission?: Yes Plan: Resolved. (3) Anemia requiring transfusions Is this a current diagnosis for this admission?: Yes Plan: GI planning to do EGD. (4) Angioedema Qualifiers: Encounter type: initial encounter Qualified Code(s): T78.3XXA - Angioneurotic edema, initial encounter Is this a current diagnosis for this admission?: Yes Plan: Secondary to Januvia: Resolved. (5) Bacteremia associated with intravascular line Qualifiers: Encounter type: sequela Qualified Code(s): T82.7XXS - Infection and inflammatory reaction due to other cardiac and vascular devices, implants and grafts, sequela; R78.81 - Bacteremia; R78.81 - Bacteremia Is this a current diagnosis for this admission?: Yes Plan: Streptococcus Mitis: Will continue IV Antibiotic until 04/21. (6) C. difficile diarrhea Is this a current diagnosis for this admission?: Yes Plan: Will continue PO Vancomycin (7) Diabetes Qualifiers: Diabetes mellitus type: type 2 Diabetes mellitus complication status: with unspecified complications Diabetes mellitus fdc insulin use: without fdc use Qualified Code(s): E11.8 - Type 2 diabetes mellitus with unspecified complications Is this a current diagnosis for this admission?: Yes Plan: Will continue current treatment. (8) Hypokalemia Is this a current diagnosis for this admission?: Yes Plan: resolved. (9) Pneumonia Qualifiers: Pneumonia type: due to unspecified organism Laterality: unspecified laterality Lung location: unspecified part of lung Qualified Code(s): J18.9 - Pneumonia, unspecified organism Is this a current diagnosis for this admission?: Yes Plan: Secondary to Bilateral Perihilar Infiltrate: Completed treatment. (10) Pulmonary hypertension Is this a current diagnosis for this admission?: Yes Plan: Supportive care. (11) Salmonella Is this a current diagnosis for this admission?: Yes Plan: Completed Treatment. (12) Iron deficiency anemia Is this a current diagnosis for this admission?: Yes Plan: Will give iron replacement. - Time Time Spent with patient: 15-24 minutes
[2017-04-16] MEDS: DONEPEZIL HCL 5 MG TABLET PO SCH (18:07)
[2017-04-16] MEDS: CALCIUM CARBONATE 250 MG/VITAMIN D3 125 UNIT TABLET PO SCH (18:07)
[2017-04-16] MEDS: ESCITALOPRAM OXALATE 10 MG TABLET PO SCH (18:08)
[2017-04-16] MEDS: FERROUS SULFATE 325 MG TABLET PO SCH (18:08)
[2017-04-16] MEDS: AMLODIPINE BESYLATE 10 MG TABLET PO SCH (21:50)
[2017-04-16] MEDS: ATORVASTATIN CALCIUM 20 MG TABLET PO SCH (21:50)
[2017-04-16] MEDS: LOSARTAN POTASSIUM 50 MG TABLET PO SCH (21:50)
[2017-04-17] MEDS: IPRATROPIUM/ALBUTEROL 0.5-2.5 MG/3 ML AMPUL NEB SCH ×4 (02:08→20:30)
[2017-04-17] MEDS: VANCOMYCIN HCL INJ 500 MG VIAL PO SCH ×3 (05:23→18:00)
[2017-04-17] MEDS: LEVOTHYROXINE SODIUM 0.112 MG TABLET PO SCH (05:24)
[2017-04-17] MEDS: LEVOTHYROXINE SODIUM 0.025 MG TABLET PO SCH (05:24)
[2017-04-17 05:43] LABS: HEMATOCRIT 33.3 % (36.0-47.0); HEMOGLOBIN 11.1 g/dL (12.0-15.5); MEAN CORPUSCULAR HEMOGLOBIN 28.4 pg (27.0-33.4); MEAN CORPUSCULAR HGB CONC 33.2 g/dL (32.0-36.0); MEAN CORPUSCULAR VOLUME 86 fl (80-97); PLATELET COUNT 583 10^3/uL (150-450); RED BLOOD COUNT 3.89 10^6/uL (3.72-5.28); RED CELL DISTRIBUTION WIDTH 17.1 % (11.5-14.0)
[2017-04-17 06:12] LABS: ANION GAP 6 (5-19); BLOOD UREA NITROGEN 12 mg/dL (7-20); CARBON DIOXIDE 31 mmol/L (22-30); CHLORIDE 93 mmol/L (98-107); GLUCOSE 101 mg/dL (75-110); POTASSIUM 4.7 mmol/L (3.6-5.0); SODIUM 130.1 mmol/L (137-145)
[2017-04-17] MEDS: FERROUS SULFATE 325 MG TABLET PO SCH ×2 (09:30→18:00)
[2017-04-17] MEDS: ANASTROZOLE 1 MG TABLET PO SCH (09:30)
[2017-04-17] MEDS: CEFTRIAXONE 2 GM/D5W RTU 2 GM/50 ML RTUPB IV SCH (09:31)
[2017-04-17] MEDS: METFORMIN HCL 500 MG TABLET PO SCH ×2 (09:31→18:00)
[2017-04-17] MEDS: ROPINIROLE HCL 2 MG TABLET PO SCH ×2 (09:32→22:49)
[2017-04-17] MEDS: NORMAL SALINE 10 ML SDV (SCHEDULED) IV SCH ×2 (09:32→22:50)
[2017-04-17] MEDS: LACTOBACILLUS ACIDOPHILUS 250 MG TAB PO SCH ×2 (09:32→18:00)
[2017-04-17] MEDS: INSULIN GLARGINE,HUM.REC.ANLOG 300 UNIT/3 ML INSULN.PEN SUBCUT SCH (09:33)
[2017-04-17] MEDS: DOCUSATE SODIUM 100 MG CAPSULE PO SCH (09:33)
--- NOTE | 2017-04-17 11:03 | PDOC PROGRESS REPORT ---
Subjective Progress Note for:: 04/17/17 Subjective:: No new issues. Nursing states the patient is scheduled for EGD this afternoon. Patient had questions about EGD i.e. would not cause pain. Reason For Visit: ACUTE RESPIRATORY FAILURE Physical Exam Vital Signs: Temp Pulse Resp BP Pulse Ox 98.3 F 60 16 130/47 H 98 04/17/17 07:37 04/17/17 07:52 04/17/17 07:52 04/17/17 07:37 04/17/17 07:52 Intake & Output 04/16/17 04/17/17 04/18/17 06:59 06:59 06:59 Intake Total 1090 676 Output Total 1050 700 Balance 40 -24 Weight 79 kg 78.2 kg General appearance: PRESENT: no acute distress, well-developed, well-nourished Head exam: PRESENT: atraumatic, normocephalic Eye exam: PRESENT: conjunctiva pink, EOMI. ABSENT: scleral icterus Ear exam: PRESENT: normal external ear exam Mouth exam: PRESENT: moist, tongue midline Neck exam: ABSENT: carotid bruit, JVD, lymphadenopathy, thyromegaly Respiratory exam: PRESENT: clear to auscultation quinten. ABSENT: rales, rhonchi, wheezes Cardiovascular exam: PRESENT: RRR. ABSENT: diastolic murmur, rubs, systolic murmur Pulses: PRESENT: normal dorsalis pedis pul Vascular exam: PRESENT: normal capillary refill GI/Abdominal exam: PRESENT: normal bowel sounds, soft. ABSENT: distended, guarding, mass, organolmegaly, rebound, tenderness Rectal exam: PRESENT: deferred Extremities exam: PRESENT: full ROM. ABSENT: calf tenderness, clubbing, pedal edema Neurological exam: PRESENT: alert, awake, oriented to person, oriented to place , oriented to time, oriented to situation, other - Hard of hearing. ABSENT: motor sensory deficit Psychiatric exam: PRESENT: appropriate affect, normal mood. ABSENT: homicidal ideation, suicidal ideation Skin exam: PRESENT: dry, intact, warm. ABSENT: cyanosis, rash Results Laboratory Results: 04/17/17 05:20 04/17/17 05:20 04/17/17 04/17/17 05:20 05:20 WBC 5.0 RBC 3.89 Hgb 11.1 L Hct 33.3 L MCV 86 MCH 28.4 MCHC 33.2 RDW 17.1 H Plt Count 583 H Sodium 130.1 L Potassium 4.7 Chloride 93 L Carbon Dioxide 31 H Anion Gap 6 BUN 12 Creatinine 0.46 L Est GFR ( Amer) > 60 Est GFR (Non-Af Amer) > 60 Glucose 101 Calcium 9.0 04/03/17 04/03/17 17:30 21:05 Troponin I 0.039 0.029 Impressions: KUB X-Ray 04/05/17 00:00 IMPRESSION: SATISFACTORY POSITION OF THE NASOGASTRIC TUBE. NO RADIOGRAPHIC EVIDENCE FOR ACUTE ABDOMINAL DISEASE. Chest CT 04/08/17 00:00 IMPRESSION: Changes consistent with bilateral perihilar infiltrates basilar atelectasis with small effusions. Interventional Vascular Procedure 04/09/17 00:00 IMPRESSION: SUCCESSFUL PLACEMENT OF A 5 FR DUAL LUMEN 37 CM PICC IN THE RIGHT BASILIC VEIN. PICC Line Insertion 04/09/17 00:00 IMPRESSION: SUCCESSFUL PLACEMENT OF A 5 FR DUAL LUMEN 37 CM PICC IN THE RIGHT BASILIC VEIN. Chest X-Ray 04/10/17 06:30 IMPRESSION: Bilateral pulmonary alveolar infiltrates unchanged. Interval extubation, removal of NG tube, and right IJ line. Placement of right trans venous PICC line with tip overlying right atrium. Assessment & Plan - Diagnosis (1) Acute respiratory failure Qualifiers: Respiratory failure complication: hypoxia Qualified Code(s): J96.01 - Acute respiratory failure with hypoxia Is this a current diagnosis for this admission?: Yes Plan: Secondary to Pneumonia: Resolved. (2) Allergic reaction Qualifiers: Encounter type: initial encounter Qualified Code(s): T78.40XA - Allergy, unspecified, initial encounter Is this a current diagnosis for this admission?: Yes Plan: Resolved. (3) Anemia requiring transfusions Is this a current diagnosis for this admission?: Yes Plan: GI planning to do EGD today. (4) Angioedema Qualifiers: Encounter type: initial encounter Qualified Code(s): T78.3XXA - Angioneurotic edema, initial encounter Is this a current diagnosis for this admission?: Yes Plan: Secondary to Januvia: Resolved. (5) Bacteremia associated with intravascular line Qualifiers: Encounter type: sequela Qualified Code(s): T82.7XXS - Infection and inflammatory reaction due to other cardiac and vascular devices, implants and grafts, sequela; R78.81 - Bacteremia; R78.81 - Bacteremia Is this a current diagnosis for this admission?: Yes Plan: Streptococcus Mitis: Will continue IV Antibiotic until 04/21. (6) C. difficile diarrhea Is this a current diagnosis for this admission?: Yes Plan: Will continue PO Vancomycin (7) Diabetes Qualifiers: Diabetes mellitus type: type 2 Diabetes mellitus complication status: with unspecified complications Diabetes mellitus ferry terminal agent insulin use: without ferry terminal agent use Qualified Code(s): E11.8 - Type 2 diabetes mellitus with unspecified complications Is this a current diagnosis for this admission?: Yes Plan: Will continue current treatment. (8) Hypokalemia Is this a current diagnosis for this admission?: Yes Plan: resolved. (9) Pneumonia Qualifiers: Pneumonia type: due to unspecified organism Laterality: unspecified laterality Lung location: unspecified part of lung Qualified Code(s): J18.9 - Pneumonia, unspecified organism Is this a current diagnosis for this admission?: Yes Plan: Secondary to Bilateral Perihilar Infiltrate: Completed treatment. (10) Pulmonary hypertension Is this a current diagnosis for this admission?: Yes Plan: Supportive care. (11) Salmonella Is this a current diagnosis for this admission?: Yes Plan: Completed Treatment. (12) Iron deficiency anemia Is this a current diagnosis for this admission?: Yes Plan: Will continue replacement. (13) Hyponatremia Is this a current diagnosis for this admission?: Yes Plan: Most likely secondary to Diuretics:Will place on sodium replacement and check BMP in am. - Time Time Spent with patient: 15-24 minutes
[2017-04-17] MEDS ORDERED: ONDANSETRON HCL INJ/PF 4 MG/2 ML SDV ONE (11:23)
[2017-04-17] MEDS ORDERED: NALOXONE HCL INJ/PF 0.4 MG/1 ML SDV ONE (11:23)
[2017-04-17] MEDS: EPLERENONE 25 MG TABLET PO SCH (11:23)
[2017-04-17] MEDS ORDERED: DIPHENHYDRAMINE HCL 50 MG/ML VIAL ONE (11:23)
[2017-04-17] MEDS ORDERED: FLUMAZENIL INJ 0.5 MG/5 ML VIAL ONE (11:24)
[2017-04-17] MEDS ORDERED: MIDAZOLAM 2 MG/2 ML INJ ONE (11:24)
[2017-04-17] MEDS ORDERED: EPINEPHRINE INJ 1 MG/10 ML DISP.SYRIN ONE (11:24)
[2017-04-17] MEDS ORDERED: FENTANYL CITRATE INJ/PF 100 MCG/2 ML AMPUL ONE (11:24)
[2017-04-17] MEDS ORDERED: GLUCAGON,HUMAN RECOMB 1 MG INJ ONE (11:24)
[2017-04-17] MEDS: MIDAZOLAM 2 MG/2 ML INJ ONE ×2 (14:00→14:05)
--- NOTE | 2017-04-17 14:49 | Operative Report ---
Operative Report DATE OF SURGERY: 04/17/17 Operative Report: The risks benefits and alternatives of the procedure explained to the patient in detail and informed consent is obtained.A GIF Olympus video scope was inserted into the patient's mouth and hypopharynx. the esophagus is identified intubated and insufflated, the scope was then advanced through the esophagus stomach and duodenum, retroflexion maneuver is done, the esophagus stomach and first and second portions of the duodenum examined PREOPERATIVE DIAGNOSIS: Chronic anemia, possible GI bleed POSTOPERATIVE DIAGNOSIS: Duodenal AVM status post ablation. Gastritis status post biopsy rule out Helicobacter pylori. Hiatal hernia OPERATION: EGD with ablation. EGD with biopsy SURGEON: NERI RESENDIZ ANESTHESIA: Moderate Sedation - 2 mg of Versed. Conscious sedation monitoring time 30 minutes. TISSUE REMOVED OR ALTERED: As noted above. COMPLICATIONS: None. ESTIMATED BLOOD LOSS: None. INTRAOPERATIVE FINDINGS: As noted above. PROCEDURE: Patient tolerated procedure well. No immediate postprocedure complications are noted. Patient sent back to her room in good condition. We will await biopsies. We will schedule patient for colonoscopy to continue the GI workup. Prep orders will be written. Further recommendations to follow.
[2017-04-17] MEDS ORDERED: PEG 3350/NA SULF,BICARB,CL/KCL 4000 ML PO PRN (16:45)
[2017-04-17] MEDS: ESCITALOPRAM OXALATE 10 MG TABLET PO SCH (18:00)
[2017-04-17] MEDS: SODIUM CHLORIDE 1 GM TABLET PO SCH (18:00)
[2017-04-17] MEDS: CALCIUM CARBONATE 250 MG/VITAMIN D3 125 UNIT TABLET PO SCH (18:00)
[2017-04-17] MEDS: DONEPEZIL HCL 5 MG TABLET PO SCH (18:00)
--- NOTE | 2017-04-17 19:48 | PDOC PROGRESS REPORT ---
Subjective Progress Note for:: 04/17/17 Subjective:: Spoke to the patient's extensively daughter is present tells me followed by GI in [place] he is really not satisfied with care has been told that he needs to bring back every 3 years for colonoscopy he tells me nothing has been found apparently patient has been contacted to go back for to [place] for another colonoscopy patient's expressing significant concerns spoke with him in detail he wants to proceed to have colonoscopy done here instead, as an inpatient Reason For Visit: ACUTE RESPIRATORY FAILURE Physical Exam Vital Signs: Temp Pulse Resp BP Pulse Ox 98.0 F 92 15 125/78 98 04/17/17 18:00 04/17/17 18:00 04/17/17 18:00 04/17/17 18:00 04/17/17 18:00 Intake & Output 04/16/17 04/17/17 04/18/17 06:59 06:59 06:59 Intake Total 1090 676 450 Output Total 1050 700 Balance 40 -24 450 Weight 79 kg 78.2 kg General appearance: PRESENT: no acute distress, well-developed, well-nourished Head exam: PRESENT: atraumatic, normocephalic Eye exam: PRESENT: EOMI, PERRLA. ABSENT: nystagmus, periorbital swelling, scleral icterus Mouth exam: PRESENT: moist, neck supple Teeth exam: ABSENT: edentulous Throat exam: ABSENT: tonsillar exudate, tonsillogmegaly Neck exam: ABSENT: meningismus, tenderness, thyromegaly Respiratory exam: PRESENT: symmetrical, unlabored. ABSENT: tachypnea, wheezes Cardiovascular exam: PRESENT: RRR, +S1, +S2 GI/Abdominal exam: PRESENT: soft. ABSENT: rebound, rigid, tenderness Extremities exam: ABSENT: joint swelling Musculoskeletal exam: PRESENT: full ROM Neurological exam: PRESENT: oriented to time, oriented to situation, CN II-XII grossly intact Focused psych exam: ABSENT: restlessness Skin exam: PRESENT: normal color. ABSENT: mottled, pallor, petechiae, urticaria , vesicles Results Laboratory Results: 04/17/17 05:20 04/17/17 05:20 04/17/17 04/17/17 05:20 05:20 WBC 5.0 RBC 3.89 Hgb 11.1 L Hct 33.3 L MCV 86 MCH 28.4 MCHC 33.2 RDW 17.1 H Plt Count 583 H Sodium 130.1 L Potassium 4.7 Chloride 93 L Carbon Dioxide 31 H Anion Gap 6 BUN 12 Creatinine 0.46 L Est GFR ( Amer) > 60 Est GFR (Non-Af Amer) > 60 Glucose 101 Calcium 9.0 04/03/17 04/03/17 17:30 21:05 Troponin I 0.039 0.029 Impressions: KUB X-Ray 04/05/17 00:00 IMPRESSION: SATISFACTORY POSITION OF THE NASOGASTRIC TUBE. NO RADIOGRAPHIC EVIDENCE FOR ACUTE ABDOMINAL DISEASE. Chest CT 04/08/17 00:00 IMPRESSION: Changes consistent with bilateral perihilar infiltrates basilar atelectasis with small effusions. Interventional Vascular Procedure 04/09/17 00:00 IMPRESSION: SUCCESSFUL PLACEMENT OF A 5 FR DUAL LUMEN 37 CM PICC IN THE RIGHT BASILIC VEIN. PICC Line Insertion 04/09/17 00:00 IMPRESSION: SUCCESSFUL PLACEMENT OF A 5 FR DUAL LUMEN 37 CM PICC IN THE RIGHT BASILIC VEIN. Chest X-Ray 04/10/17 06:30 IMPRESSION: Bilateral pulmonary alveolar infiltrates unchanged. Interval extubation, removal of NG tube, and right IJ line. Placement of right trans venous PICC line with tip overlying right atrium. Assessment & Plan - Diagnosis (1) Anemia Qualifiers: Anemia type: iron deficiency Is this a current diagnosis for this admission?: Yes Plan: patient and her are agreeable to proceed with colonoscopy here the issue here is with chronic anemia, unclear if there is GI bleeding since previous colonoscopy normal in the past, if there are no polyp on this exam, she should not undergo any further colonoscopy exam will write prep instructions will schedule in am (2) C. difficile diarrhea Is this a current diagnosis for this admission?: Yes - Time Time Spent with patient: 15-24 minutes
[2017-04-17] MEDS: AMLODIPINE BESYLATE 10 MG TABLET PO SCH (22:50)
[2017-04-17] MEDS: LOSARTAN POTASSIUM 50 MG TABLET PO SCH (22:50)
[2017-04-17] MEDS: ATORVASTATIN CALCIUM 20 MG TABLET PO SCH (22:50)
[2017-04-18] MEDS: VANCOMYCIN HCL INJ 500 MG VIAL PO SCH ×5 (00:30→23:54)
[2017-04-18] MEDS: IPRATROPIUM/ALBUTEROL 0.5-2.5 MG/3 ML AMPUL NEB SCH ×4 (01:49→20:28)
[2017-04-18 05:07] LABS: ABSOLUTE EOSINOPHILS # (AUTO) 0.1 10^3/uL (0.0-0.6); ABSOLUTE LYMPHOCYTES (AUTO) 0.9 10^3/uL (0.5-4.7); ABSOLUTE MONOCYTES (AUTO) 0.5 10^3/uL (0.1-1.4); ABSOLUTE NEUT (AUTO) 2.5 10^3/uL (1.7-8.2); BASOPHILS % (AUTO) 0.8 % (0-2); EOSINOPHILS % (AUTO) 3.7 % (0-6); HEMATOCRIT 33.8 % (36.0-47.0); HEMOGLOBIN 11.1 g/dL (12.0-15.5); LYMPHOCYTES % (AUTO) 21.7 % (13-45); MEAN CORPUSCULAR HEMOGLOBIN 27.8 pg (27.0-33.4); MEAN CORPUSCULAR HGB CONC 32.8 g/dL (32.0-36.0); MEAN CORPUSCULAR VOLUME 85 fl (80-97); PLATELET COUNT 652 10^3/uL (150-450); RED BLOOD COUNT 3.98 10^6/uL (3.72-5.28); RED CELL DISTRIBUTION WIDTH 17.1 % (11.5-14.0); SEGMENTED NEUTROPHILS % (AUTO) 60.8 % (42-78); TOTAL CELLS COUNTED % (AUTO) 100 %; WHITE BLOOD COUNT 4.1 10^3/uL (4.0-10.5)
[2017-04-18 05:31] LABS: ALANINE AMINOTRANSFERASE 33 U/L (9-52); ALBUMIN 2.6 g/dL (3.5-5.0); ALKALINE PHOSPHATASE 124 U/L (38-126); ANION GAP 6 (5-19); ASPARTATE AMINO TRANSFERASE 47 U/L (14-36); BILIRUBIN,DIRECT 0.2 mg/dL (0.0-0.4); BILIRUBIN,TOTAL 0.2 mg/dL (0.2-1.3); BLOOD UREA NITROGEN 9 mg/dL (7-20); CARBON DIOXIDE 32 mmol/L (22-30); CHLORIDE 94 mmol/L (98-107); GLUCOSE 102 mg/dL (75-110); POTASSIUM 4.4 mmol/L (3.6-5.0); SODIUM 131.8 mmol/L (137-145); TOTAL PROTEIN 5.2 g/dL (6.3-8.2)
[2017-04-18] MEDS: LEVOTHYROXINE SODIUM 0.025 MG TABLET PO SCH (06:12)
[2017-04-18] MEDS: LEVOTHYROXINE SODIUM 0.112 MG TABLET PO SCH (06:12)
[2017-04-18] MEDS ORDERED: MAGNESIUM CITRATE 296 ML BOTTLE PO ONE (07:45)
[2017-04-18] MEDS: FERROUS SULFATE 325 MG TABLET PO SCH ×2 (08:02→18:43)
[2017-04-18] MEDS: DOCUSATE SODIUM 100 MG CAPSULE PO SCH (08:04)
[2017-04-18] MEDS: CEFTRIAXONE 2 GM/D5W RTU 2 GM/50 ML RTUPB IV SCH (10:24)
[2017-04-18] MEDS: ANASTROZOLE 1 MG TABLET PO SCH (10:27)
[2017-04-18] MEDS: ROPINIROLE HCL 2 MG TABLET PO SCH ×2 (10:28→21:57)
[2017-04-18] MEDS ORDERED: MIDAZOLAM 2 MG/2 ML INJ ONE (10:50)
[2017-04-18] MEDS ORDERED: FENTANYL CITRATE INJ/PF 100 MCG/2 ML AMPUL ONE (10:50)
[2017-04-18] MEDS ORDERED: NALOXONE HCL INJ/PF 0.4 MG/1 ML SDV ONE (10:50)
[2017-04-18] MEDS ORDERED: ONDANSETRON HCL INJ/PF 4 MG/2 ML SDV ONE (10:50)
[2017-04-18] MEDS ORDERED: DIPHENHYDRAMINE HCL 50 MG/ML VIAL ONE (10:50)
[2017-04-18] MEDS ORDERED: GLUCAGON,HUMAN RECOMB 1 MG INJ ONE (10:51)
[2017-04-18] MEDS ORDERED: FLUMAZENIL INJ 0.5 MG/5 ML VIAL ONE (10:51)
[2017-04-18] MEDS ORDERED: EPINEPHRINE INJ 1 MG/10 ML DISP.SYRIN ONE (10:51)
[2017-04-18] MEDS: METFORMIN HCL 500 MG TABLET PO SCH ×2 (11:20→18:43)
[2017-04-18] MEDS: SODIUM CHLORIDE 1 GM TABLET PO SCH ×2 (11:20→18:43)
[2017-04-18] MEDS: INSULIN GLARGINE,HUM.REC.ANLOG 300 UNIT/3 ML INSULN.PEN SUBCUT SCH (11:20)
[2017-04-18] MEDS: NORMAL SALINE 10 ML SDV (SCHEDULED) IV SCH ×2 (11:20→21:57)
[2017-04-18] MEDS: LACTOBACILLUS ACIDOPHILUS 250 MG TAB PO SCH ×2 (11:20→18:43)
[2017-04-18] MEDS: MIDAZOLAM 2 MG/2 ML INJ ONE ×3 (12:08→12:14)
[2017-04-18] MEDS: EPLERENONE 25 MG TABLET PO SCH (12:44)
--- NOTE | 2017-04-18 13:04 | Operative Report ---
Operative Report DATE OF SURGERY: 04/18/17 Operative Report: The risks, benefits and alternatives of the procedure including risks of bleeding, perforation requiring surgery are explained to the patient in detail and informed consent is obtained. Patient is brought back to the endoscopy suite and placed in the left, lateral decubital position. Timeout was called. Conscious sedation medications are provided. A rectal examination was done which did not reveal any masses, tears or fissures. An Olympus videoscope was inserted into the patient's rectum. It is carefully advanced all the way to the cecum. The cecum was identified by the usual anatomical landmarks including the ileocecal valve as well as the appendiceal office. Photodocumentation is obtained. The prep was good. Patient does have somewhat of a redundant colon. The scope was then sequentially pulled back via the various segments of the colon including the ascending colon, hepatic flexure, transverse colon, splenic flexure, descending colon went to the rectosigmoid portions of the colon. Retroflexion maneuvers performed. PREOPERATIVE DIAGNOSIS: Chronic anemia, possible GI bleed POSTOPERATIVE DIAGNOSIS: Sessile polyp noted in the ascending colon removed via biopsy forceps. More pedunculated lesion noted in the same area status post snare polypectomy. Sigmoid diverticulosis. Internal hemorrhoids OPERATION: EGD with ablation. EGD with biopsy SURGEON: NERI RESENDIZ ANESTHESIA: Moderate Sedation - 4 mg of Versed. Conscious sedation monitoring time 30 minutes. TISSUE REMOVED OR ALTERED: As noted above. COMPLICATIONS: None. ESTIMATED BLOOD LOSS: None. INTRAOPERATIVE FINDINGS: As noted above. PROCEDURE: Patient of the procedure well. She sent back to her room in good condition. We will resume regular diet. We will and pathology of the polyp. No significant bleeding noted Given her age I probably would not bring him back in 3 years unless there are other issues going on. There would necessitate further colonoscopy. We will wait on pathology report. 2-3 week follow-up
--- NOTE | 2017-04-18 13:57 | PDOC PROGRESS REPORT ---
Subjective Progress Note for:: 04/18/17 Subjective:: Patient was seen earlier this morning who stated that she was doing okay. Nursing states that patient was scheduled to have colonoscopy. Patient has not had any new issues overnight. Reason For Visit: ACUTE RESPIRATORY FAILURE Physical Exam Vital Signs: Temp Pulse Resp BP Pulse Ox 98.2 F 74 19 144/53 H 88 L 04/18/17 11:32 04/18/17 13:00 04/18/17 13:00 04/18/17 13:00 04/18/17 13:00 Intake & Output 04/17/17 04/18/17 04/19/17 06:59 06:59 06:59 Intake Total 676 1062 150 Output Total 700 1000 Balance -24 62 150 Weight 78.2 kg 77.5 kg General appearance: PRESENT: no acute distress, well-developed, well-nourished Head exam: PRESENT: atraumatic, normocephalic Eye exam: PRESENT: conjunctiva pink, EOMI. ABSENT: scleral icterus Ear exam: PRESENT: normal external ear exam Mouth exam: PRESENT: moist, tongue midline Neck exam: ABSENT: carotid bruit, JVD, lymphadenopathy, thyromegaly Respiratory exam: PRESENT: clear to auscultation quinten. ABSENT: rales, rhonchi, wheezes Cardiovascular exam: PRESENT: RRR. ABSENT: diastolic murmur, rubs, systolic murmur Pulses: PRESENT: normal dorsalis pedis pul Vascular exam: PRESENT: normal capillary refill GI/Abdominal exam: PRESENT: normal bowel sounds, soft. ABSENT: distended, guarding, mass, organolmegaly, rebound, tenderness Rectal exam: PRESENT: deferred Extremities exam: PRESENT: full ROM. ABSENT: calf tenderness, clubbing, pedal edema Neurological exam: PRESENT: alert, awake, oriented to person, oriented to place , oriented to time, oriented to situation, CN II-XII grossly intact. ABSENT: motor sensory deficit Psychiatric exam: PRESENT: appropriate affect, normal mood. ABSENT: homicidal ideation, suicidal ideation Skin exam: PRESENT: dry, intact, warm. ABSENT: cyanosis, rash Results Laboratory Results: 04/18/17 05:00 04/18/17 05:00 04/18/17 04/18/17 05:00 05:00 WBC 4.1 RBC 3.98 Hgb 11.1 L Hct 33.8 L MCV 85 MCH 27.8 MCHC 32.8 RDW 17.1 H Plt Count 652 H Seg Neutrophils % 60.8 Lymphocytes % 21.7 Monocytes % 13.0 Eosinophils % 3.7 Basophils % 0.8 Absolute Neutrophils 2.5 Absolute Lymphocytes 0.9 Absolute Monocytes 0.5 Absolute Eosinophils 0.1 Absolute Basophils 0.0 Sodium 131.8 L Potassium 4.4 Chloride 94 L Carbon Dioxide 32 H Anion Gap 6 BUN 9 Creatinine 0.46 L Est GFR ( Amer) > 60 Est GFR (Non-Af Amer) > 60 Glucose 102 Calcium 9.0 Total Bilirubin 0.2 AST 47 H ALT 33 Alkaline Phosphatase 124 Total Protein 5.2 L Albumin 2.6 L 04/03/17 04/03/17 17:30 21:05 Troponin I 0.039 0.029 Impressions: KUB X-Ray 04/05/17 00:00 IMPRESSION: SATISFACTORY POSITION OF THE NASOGASTRIC TUBE. NO RADIOGRAPHIC EVIDENCE FOR ACUTE ABDOMINAL DISEASE. Chest CT 04/08/17 00:00 IMPRESSION: Changes consistent with bilateral perihilar infiltrates basilar atelectasis with small effusions. Interventional Vascular Procedure 04/09/17 00:00 IMPRESSION: SUCCESSFUL PLACEMENT OF A 5 FR DUAL LUMEN 37 CM PICC IN THE RIGHT BASILIC VEIN. PICC Line Insertion 04/09/17 00:00 IMPRESSION: SUCCESSFUL PLACEMENT OF A 5 FR DUAL LUMEN 37 CM PICC IN THE RIGHT BASILIC VEIN. Chest X-Ray 04/10/17 06:30 IMPRESSION: Bilateral pulmonary alveolar infiltrates unchanged. Interval extubation, removal of NG tube, and right IJ line. Placement of right trans venous PICC line with tip overlying right atrium. Assessment & Plan - Diagnosis (1) Acute respiratory failure Qualifiers: Respiratory failure complication: hypoxia Qualified Code(s): J96.01 - Acute respiratory failure with hypoxia Is this a current diagnosis for this admission?: Yes Plan: Secondary to Pneumonia: Resolved. (2) Allergic reaction Qualifiers: Encounter type: initial encounter Qualified Code(s): T78.40XA - Allergy, unspecified, initial encounter Is this a current diagnosis for this admission?: Yes Plan: Resolved. (3) Anemia requiring transfusions Is this a current diagnosis for this admission?: Yes Plan: Patient's EGD demonstrated no acute abnormality abnormalities. Patient's colonoscopy demonstrates sessile polyp in the ascending colon removed forceps patient had other pedunculated lesions and evidence of sigmoid diverticulosis and internal hemorrhoids. No evidence of acute bleeding (4) Angioedema Qualifiers: Encounter type: initial encounter Qualified Code(s): T78.3XXA - Angioneurotic edema, initial encounter Is this a current diagnosis for this admission?: Yes Plan: Secondary to Januvia: Resolved. (5) Bacteremia associated with intravascular line Qualifiers: Encounter type: sequela Qualified Code(s): T82.7XXS - Infection and inflammatory reaction due to other cardiac and vascular devices, implants and grafts, sequela; R78.81 - Bacteremia; R78.81 - Bacteremia Is this a current diagnosis for this admission?: Yes Plan: Streptococcus Mitis: Patient currently receiving IV antibiotics however this can be switched to p.o. antibiotics at time of discharge. (6) C. difficile diarrhea Is this a current diagnosis for this admission?: Yes Plan: Will continue PO Vancomycin (7) Diabetes Qualifiers: Diabetes mellitus type: type 2 Diabetes mellitus complication status: with unspecified complications Diabetes mellitus retirement insulin use: without retirement use Qualified Code(s): E11.8 - Type 2 diabetes mellitus with unspecified complications Is this a current diagnosis for this admission?: Yes Plan: Will continue current treatment. (8) Hypokalemia Is this a current diagnosis for this admission?: Yes Plan: resolved. (9) Pneumonia Qualifiers: Pneumonia type: due to unspecified organism Laterality: unspecified laterality Lung location: unspecified part of lung Qualified Code(s): J18.9 - Pneumonia, unspecified organism Is this a current diagnosis for this admission?: Yes Plan: Secondary to Bilateral Perihilar Infiltrate: Completed treatment. (10) Pulmonary hypertension Is this a current diagnosis for this admission?: Yes Plan: Supportive care. (11) Salmonella Is this a current diagnosis for this admission?: Yes Plan: Completed Treatment. (12) Iron deficiency anemia Is this a current diagnosis for this admission?: Yes Plan: Will continue replacement. (13) Hyponatremia Is this a current diagnosis for this admission?: Yes Plan: Most likely secondary to Diuretics: We will continue sodium replacement and check BMP in a.m. - Time Time Spent with patient: 15-24 minutes - Home with home health versus rehab.
[2017-04-18] MEDS: CALCIUM CARBONATE 250 MG/VITAMIN D3 125 UNIT TABLET PO SCH (18:43)
[2017-04-18] MEDS: DONEPEZIL HCL 5 MG TABLET PO SCH (18:43)
[2017-04-18] MEDS: ESCITALOPRAM OXALATE 10 MG TABLET PO SCH (18:44)
[2017-04-18] MEDS: LOSARTAN POTASSIUM 50 MG TABLET PO SCH (21:57)
[2017-04-18] MEDS: AMLODIPINE BESYLATE 10 MG TABLET PO SCH (21:57)
[2017-04-18] MEDS: ATORVASTATIN CALCIUM 20 MG TABLET PO SCH (21:57)
[2017-04-19] MEDS: IPRATROPIUM/ALBUTEROL 0.5-2.5 MG/3 ML AMPUL NEB SCH ×3 (02:00→14:52)
[2017-04-19] MEDS: LEVOTHYROXINE SODIUM 0.112 MG TABLET PO SCH (05:44)
[2017-04-19] MEDS: LEVOTHYROXINE SODIUM 0.025 MG TABLET PO SCH (05:44)
[2017-04-19] MEDS: VANCOMYCIN HCL INJ 500 MG VIAL PO SCH ×3 (05:44→17:21)
[2017-04-19 05:54] LABS: ABSOLUTE EOSINOPHILS # (AUTO) 0.1 10^3/uL (0.0-0.6); ABSOLUTE LYMPHOCYTES (AUTO) 0.8 10^3/uL (0.5-4.7); ABSOLUTE MONOCYTES (AUTO) 0.5 10^3/uL (0.1-1.4); ABSOLUTE NEUT (AUTO) 2.9 10^3/uL (1.7-8.2); EOSINOPHILS % (AUTO) 3.4 % (0-6); HEMATOCRIT 34.4 % (36.0-47.0); HEMOGLOBIN 10.9 g/dL (12.0-15.5); LYMPHOCYTES % (AUTO) 19.1 % (13-45); MEAN CORPUSCULAR HEMOGLOBIN 27.5 pg (27.0-33.4); MEAN CORPUSCULAR HGB CONC 31.7 g/dL (32.0-36.0); MEAN CORPUSCULAR VOLUME 87 fl (80-97); MONOCYTES % (AUTO) 11.2 % (3-13); PLATELET COUNT 710 10^3/uL (150-450); RED BLOOD COUNT 3.96 10^6/uL (3.72-5.28); RED CELL DISTRIBUTION WIDTH 16.8 % (11.5-14.0); SEGMENTED NEUTROPHILS % (AUTO) 65.3 % (42-78); TOTAL CELLS COUNTED % (AUTO) 100 %; WHITE BLOOD COUNT 4.4 10^3/uL (4.0-10.5)
[2017-04-19 06:09] LABS: ANION GAP 10 (5-19); BLOOD UREA NITROGEN 11 mg/dL (7-20); CALCIUM 8.9 mg/dL (8.4-10.2); CARBON DIOXIDE 28 mmol/L (22-30); CHLORIDE 99 mmol/L (98-107); GLUCOSE 120 mg/dL (75-110); POTASSIUM 4.5 mmol/L (3.6-5.0); SODIUM 136.8 mmol/L (137-145)
[2017-04-19] MEDS: INSULIN GLARGINE,HUM.REC.ANLOG 300 UNIT/3 ML INSULN.PEN SUBCUT SCH (09:22)
[2017-04-19] MEDS: DOCUSATE SODIUM 100 MG CAPSULE PO SCH (09:23)
[2017-04-19] MEDS: LACTOBACILLUS ACIDOPHILUS 250 MG TAB PO SCH ×2 (09:23→17:22)
[2017-04-19] MEDS: METFORMIN HCL 500 MG TABLET PO SCH ×2 (09:23→17:23)
[2017-04-19] MEDS: FERROUS SULFATE 325 MG TABLET PO SCH ×2 (09:23→17:22)
[2017-04-19] MEDS: NORMAL SALINE 10 ML SDV (SCHEDULED) IV SCH (09:23)
[2017-04-19] MEDS: ROPINIROLE HCL 2 MG TABLET PO SCH (09:24)
--- NOTE | 2017-04-19 09:24 | PDOC PROGRESS REPORT ---
Subjective Progress Note for:: 04/19/17 Subjective:: patient underwent colonoscopy yesterday has a redundant colon however was able to visualize polyps in the ascending colon area somewhat surprising since states has had multiple colonoscopies in [place] pathology is still pending on the polyp as well as from the EGD that was done a day earlier than the colonoscopy patient does also have diverticulosis and some internal hemorrhoids no obvious sites of bleeding noted patient could have having intermittent diverticular bleeding no current active bleeding Hgb is stable all results are explained to the patient's will wait on pathology Reason For Visit: ACUTE RESPIRATORY FAILURE Physical Exam Vital Signs: Temp Pulse Resp BP Pulse Ox 98.1 F 66 16 147/55 H 94 04/19/17 08:09 04/19/17 08:21 04/19/17 08:21 04/19/17 08:09 04/19/17 08:21 Intake & Output 04/18/17 04/19/17 04/20/17 06:59 06:59 06:59 Intake Total 1062 870 Output Total 1000 375 Balance 62 495 Weight 77.5 kg 74.9 kg General appearance: PRESENT: no acute distress, well-developed, well-nourished Head exam: PRESENT: atraumatic, normocephalic Eye exam: PRESENT: EOMI, PERRLA. ABSENT: nystagmus, periorbital swelling, scleral icterus Mouth exam: PRESENT: moist, neck supple Throat exam: ABSENT: tonsillar exudate, tonsillogmegaly Neck exam: ABSENT: meningismus, tenderness, thyromegaly Respiratory exam: PRESENT: symmetrical, unlabored. ABSENT: tachypnea, wheezes Cardiovascular exam: PRESENT: RRR, +S1, +S2 GI/Abdominal exam: PRESENT: soft. ABSENT: rebound, rigid, tenderness Extremities exam: ABSENT: joint swelling Neurological exam: PRESENT: oriented to time, oriented to situation, CN II-XII grossly intact Psychiatric exam: PRESENT: appropriate affect Focused psych exam: ABSENT: restlessness Skin exam: PRESENT: intact, normal color. ABSENT: cyanosis, skin tears Results Laboratory Results: 04/19/17 04:55 04/19/17 04:55 04/19/17 04/19/17 04:55 04:55 WBC 4.4 RBC 3.96 Hgb 10.9 L Hct 34.4 L MCV 87 MCH 27.5 MCHC 31.7 L RDW 16.8 H Plt Count 710 H Seg Neutrophils % 65.3 Lymphocytes % 19.1 Monocytes % 11.2 Eosinophils % 3.4 Basophils % 1.0 Absolute Neutrophils 2.9 Absolute Lymphocytes 0.8 Absolute Monocytes 0.5 Absolute Eosinophils 0.1 Absolute Basophils 0.0 Sodium 136.8 L Potassium 4.5 Chloride 99 Carbon Dioxide 28 Anion Gap 10 BUN 11 Creatinine 0.48 L Est GFR ( Amer) > 60 Est GFR (Non-Af Amer) > 60 Glucose 120 H Calcium 8.9 04/03/17 04/03/17 17:30 21:05 Troponin I 0.039 0.029 Impressions: KUB X-Ray 04/05/17 00:00 IMPRESSION: SATISFACTORY POSITION OF THE NASOGASTRIC TUBE. NO RADIOGRAPHIC EVIDENCE FOR ACUTE ABDOMINAL DISEASE. Chest CT 04/08/17 00:00 IMPRESSION: Changes consistent with bilateral perihilar infiltrates basilar atelectasis with small effusions. Interventional Vascular Procedure 04/09/17 00:00 IMPRESSION: SUCCESSFUL PLACEMENT OF A 5 FR DUAL LUMEN 37 CM PICC IN THE RIGHT BASILIC VEIN. PICC Line Insertion 04/09/17 00:00 IMPRESSION: SUCCESSFUL PLACEMENT OF A 5 FR DUAL LUMEN 37 CM PICC IN THE RIGHT BASILIC VEIN. Chest X-Ray 04/10/17 06:30 IMPRESSION: Bilateral pulmonary alveolar infiltrates unchanged. Interval extubation, removal of NG tube, and right IJ line. Placement of right trans venous PICC line with tip overlying right atrium. Assessment & Plan - Diagnosis (1) Anemia Qualifiers: Anemia type: iron deficiency Is this a current diagnosis for this admission?: Yes Plan: no current active bleeding is noted from either the upper or lower GI tract continue to monitor (2) C. difficile diarrhea Is this a current diagnosis for this admission?: Yes (3) Colon polyp Plan: will wait on pathology given her age, ? if surveillance is needed will depend on clinical situation at that time (4) Diverticulosis Plan: multiple diverticular orifices are visualized no active bleeding avoid straining if possible, keep stools soft some fiber would be beneficial - Time Time Spent with patient: 25-34 minutes
[2017-04-19] MEDS: CEFTRIAXONE 2 GM/D5W RTU 2 GM/50 ML RTUPB IV SCH (09:32)
[2017-04-19] MEDS: ANASTROZOLE 1 MG TABLET PO SCH (09:33)
[2017-04-19] MEDS: SODIUM CHLORIDE 1 GM TABLET PO SCH (11:10)
[2017-04-19] MEDS: EPLERENONE 25 MG TABLET PO SCH (11:10)
--- NOTE | 2017-04-19 15:25 | PDOC DISCHARGE SUMMARY ---
General - Admit/Disc Date/PCP Admission Date/Primary Care Provider: 04/03/17 15:45 ALKA VIRAMONTES PA-C Discharge Date: 04/19/17 - Discharge Diagnosis (1) Acute respiratory failure Is this a current diagnosis for this admission?: Yes Summary: Secondary to Januvia: Resolved. Patient is no longer to take Januvia. (2) Allergic reaction Is this a current diagnosis for this admission?: Yes Summary: Secondary to Januvia: Resolved (3) Anemia requiring transfusions Is this a current diagnosis for this admission?: Yes Summary: Patient did require blood transfusion during this hospitalization. During that time patient was found to have C. difficile colitis and as well as tested positive for Salmonella. Patient was scoped by GI EGD and colonoscopy and no active bleeding was found. Patient was found to have polyps on colonoscopy which patient will need to follow with GI as outpatient. (4) Angioedema Is this a current diagnosis for this admission?: Yes Summary: Secondary to Januvia: Resolved (5) Bacteremia associated with intravascular line Is this a current diagnosis for this admission?: Yes Summary: Secondary to Streptococcus mitis: Patient has completed 14 days of IV antibiotics (6) C. difficile diarrhea Is this a current diagnosis for this admission?: Yes Summary: Patient continued on p.o. vancomycin due to C. difficile colitis and diarrhea which has improved (7) Diabetes Is this a current diagnosis for this admission?: Yes Summary: Continue sliding scale insulin and Lantus patient has been taken off of all oral diabetic medications (8) Hypokalemia Is this a current diagnosis for this admission?: Yes Summary: Resolved (9) Pneumonia Is this a current diagnosis for this admission?: Yes Summary: Secondary to vent associated pneumonia: Patient completed antibiotic treatment here in hospital resolved (10) Pulmonary hypertension Is this a current diagnosis for this admission?: Yes Summary: Supportive Care. (11) Salmonella Is this a current diagnosis for this admission?: Yes Summary: Completed treatment (12) Iron deficiency anemia Is this a current diagnosis for this admission?: Yes Summary: Will place on Iron replacement. (13) Hyponatremia Is this a current diagnosis for this admission?: Yes Summary: Patient's sodium is correcting. No additional workup required. Sodium at time of discharge was 136.8 - Additional Information Resuscitation Status: Do Not Resuscitate Discharge Diet: Diabetic Discharge Activity: Activity As Tolerated Prescriptions: Ferrous Sulfate 325 mg PO BID 60 Days tablet Vancomycin HCl 250 mg PO Q6H #40 capsule Home Medications: Amlodipine Besylate [Norvasc 10 mg Tablet] 10 mg PO QHS 04/03/17 Anastrozole [Arimidex 1 mg Tablet] 1 mg PO DAILY 04/03/17 Atorvastatin Calcium [Lipitor 20 mg Tablet] 20 mg PO QHS 04/03/17 Calcium Carbonate/Vitamin D3 [Oyster Shell 500-Vit D3 200 Tb] 1 each PO QPM Donepezil HCl [Aricept] 10 mg PO QPM 04/03/17 Eplerenone [Inspra] 50 mg PO DAILY 04/03/17 Escitalopram Oxalate [Lexapro 10 mg Tablet] 10 mg PO QPM 04/03/17 Levothyroxine Sodium [Synthroid] 137 mcg PO Q6AM 04/03/17 Losartan Potassium [Cozaar 50 mg Tablet] 50 mg PO QHS 04/03/17 Metformin HCl [Glucophage 500 mg Tablet] 500 mg PO BID 04/03/17 Ropinirole HCl [Requip 2 mg Tablet] 2 mg PO Q12 04/03/17 Acetaminophen [Tylenol Soln 325 mg/10.15 ml Udcup] 325 mg NG Q4HP PRN udc 04/19 Docusate Sodium [Colace 100 mg Capsule] 100 mg PO DAILY capsule 04/19/17 Ferrous Sulfate 325 mg PO BID 60 Days tablet 04/19/17 Ferrous Sulfate [Feosol 325 mg Tablet] 325 mg PO BIDPCBS tablet 04/19/17 Insulin Glargine,Hum.rec.anlog [Lantus Insulin 100 Unit/mL] 8 unit SUBCUT DAILY insuln.pen 04/19/17 Insulin Lispro [Humalog Insulin (Lispro) 100 unit/mL] 0 - 12 unit SUBCUT ACHSP PRN unit 04/19/17 Ipratropium/Albuterol Sulfate [Duoneb 3 ml Ampul] 3 ml NEB RTQ6 vial.neb Vancomycin HCl 250 mg PO Q6H #40 capsule 04/19/17 History of Present Illness Patient complains of: Eyelid and Oral swelling History of Present Illness: PHYLLIS BARRERA is a 86 year old female admitted to the hospital with complaint of eyelid and oral swelling. Patient was admitted in the emergency room. Hospital Course Hospital Course: Patient is an 86-year-old female that presented to our facility with complaint of eyelid and oral swelling. Patient was intubated in the emergency room taken to the ICU. Patient was placed on broad-spectrum antibiotics of Zyvox and Zosyn and given Pepcid Benadryl and steroids. Patient was able to be extubated successfully but developed nosocomial acquired pneumonia which was required additional treatment. Patient then developed bleeding and required transfusion patient underwent EGD and colonoscopy that demonstrated no active bleeding however there was evidence of colonic polyps which patient will need a follow- up with GI as outpatient. Patient had a diagnosis of C. difficile prior to admission and has been continued on vancomycin. Duration of vancomycin will be determined by GI. Patient was noted to have hyponatremia which is secondary to diuretics which has resolved. Patient's sodium at time of discharge was 36.8. Patient is being transferred to facility for rehab due to debility. Physical Exam Vital Signs: Temp Pulse Resp BP Pulse Ox 97.9 F 72 18 134/50 H 96 04/19/17 12:00 04/19/17 14:53 04/19/17 14:53 04/19/17 12:00 04/19/17 14:53 Intake & Output 04/18/17 04/19/17 04/20/17 06:59 06:59 06:59 Intake Total 1062 870 260 Output Total 1000 375 300 Balance 62 495 -40 Weight 77.5 kg 74.9 kg General appearance: PRESENT: no acute distress, well-developed, well-nourished Head exam: PRESENT: atraumatic, normocephalic Eye exam: PRESENT: conjunctiva pink, EOMI. ABSENT: scleral icterus Ear exam: PRESENT: normal external ear exam Mouth exam: PRESENT: moist, tongue midline Neck exam: ABSENT: carotid bruit, JVD, lymphadenopathy, thyromegaly Respiratory exam: PRESENT: clear to auscultation quinten. ABSENT: rales, rhonchi, wheezes Cardiovascular exam: PRESENT: RRR. ABSENT: diastolic murmur, rubs, systolic murmur Pulses: PRESENT: normal dorsalis pedis pul Vascular exam: PRESENT: normal capillary refill GI/Abdominal exam: PRESENT: normal bowel sounds, soft. ABSENT: distended, guarding, mass, organolmegaly, rebound, tenderness Rectal exam: PRESENT: deferred Extremities exam: PRESENT: full ROM. ABSENT: calf tenderness, clubbing, pedal edema Neurological exam: PRESENT: alert, awake, oriented to person, oriented to place , oriented to time, oriented to situation, CN II-XII grossly intact. ABSENT: motor sensory deficit Psychiatric exam: PRESENT: appropriate affect, normal mood. ABSENT: homicidal ideation, suicidal ideation Skin exam: PRESENT: dry, intact, warm. ABSENT: cyanosis, rash Results Laboratory Results: 04/19/17 04:55 04/19/17 04:55 04/19/17 04/19/17 04:55 04:55 WBC 4.4 RBC 3.96 Hgb 10.9 L Hct 34.4 L MCV 87 MCH 27.5 MCHC 31.7 L RDW 16.8 H Plt Count 710 H Seg Neutrophils % 65.3 Lymphocytes % 19.1 Monocytes % 11.2 Eosinophils % 3.4 Basophils % 1.0 Absolute Neutrophils 2.9 Absolute Lymphocytes 0.8 Absolute Monocytes 0.5 Absolute Eosinophils 0.1 Absolute Basophils 0.0 Sodium 136.8 L Potassium 4.5 Chloride 99 Carbon Dioxide 28 Anion Gap 10 BUN 11 Creatinine 0.48 L Est GFR ( Amer) > 60 Est GFR (Non-Af Amer) > 60 Glucose 120 H Calcium 8.9 04/03/17 04/03/17 17:30 21:05 Troponin I 0.039 0.029 Impressions: KUB X-Ray 04/05/17 00:00 IMPRESSION: SATISFACTORY POSITION OF THE NASOGASTRIC TUBE. NO RADIOGRAPHIC EVIDENCE FOR ACUTE ABDOMINAL DISEASE. Chest CT 04/08/17 00:00 IMPRESSION: Changes consistent with bilateral perihilar infiltrates basilar atelectasis with small effusions. Interventional Vascular Procedure 04/09/17 00:00 IMPRESSION: SUCCESSFUL PLACEMENT OF A 5 FR DUAL LUMEN 37 CM PICC IN THE RIGHT BASILIC VEIN. PICC Line Insertion 04/09/17 00:00 IMPRESSION: SUCCESSFUL PLACEMENT OF A 5 FR DUAL LUMEN 37 CM PICC IN THE RIGHT BASILIC VEIN. Chest X-Ray 04/10/17 06:30 IMPRESSION: Bilateral pulmonary alveolar infiltrates unchanged. Interval extubation, removal of NG tube, and right IJ line. Placement of right trans venous PICC line with tip overlying right atrium. Plan Time Spent: Greater than 30 Minutes
[2017-04-19 16:05] VITALS: BP 156/58
[2017-04-19] MEDS: DONEPEZIL HCL 5 MG TABLET PO SCH (17:22)
[2017-04-19] MEDS: CALCIUM CARBONATE 250 MG/VITAMIN D3 125 UNIT TABLET PO SCH (17:22)
[2017-04-19] MEDS: ESCITALOPRAM OXALATE 10 MG TABLET PO SCH (17:23)
== END 2017-04-19 17:45 | DRG 915 ==
LOC: ER 12:44 → EH 15:45 → ICU 04-05 13:21 → 4N 04-13 01:31
PROVIDERS: ADMIT Emergency Medicine; ATTEND Emergency Medicine
PROC: 5A1955Z Respiratory Ventilation, Greater than 96 Consecutive Hours (ICD-10-PCS; principal; 2017-04-03)
PROC: 0BH17EZ Insertion of Endotracheal Airway into Trachea, Via Natural or Artificial Opening (ICD-10-PCS; 2017-04-03)
PROC: 30233N1 Transfusion of Nonautologous Red Blood Cells into Peripheral Vein, Percutaneous Approach (ICD-10-PCS; 2017-04-03)
PROC: 3E0F73Z Introduction of Anti-inflammatory into Respiratory Tract, Via Natural or Artificial Opening (ICD-10-PCS; 2017-04-08)
PROC: 5A09457 Assistance with Respiratory Ventilation, 24-96 Consecutive Hours, Continuous Positive Airway Pressure (ICD-10-PCS; 2017-04-09)
PROC: 02H633Z Insertion of Infusion Device into Right Atrium, Percutaneous Approach (ICD-10-PCS; 2017-04-09)
PROC: B54MZZA Ultrasonography of Right Upper Extremity Veins, Guidance (ICD-10-PCS; 2017-04-09)
PROC: 0D598ZZ Destruction of Duodenum, Via Natural or Artificial Opening Endoscopic (ICD-10-PCS; 2017-04-17)
PROC: 0DB68ZX Excision of Stomach, Via Natural or Artificial Opening Endoscopic, Diagnostic (ICD-10-PCS; 2017-04-17)
PROC: 0DBK8ZX Excision of Ascending Colon, Via Natural or Artificial Opening Endoscopic, Diagnostic (ICD-10-PCS; 2017-04-18)
PROC: 0D5K8ZZ Destruction of Ascending Colon, Via Natural or Artificial Opening Endoscopic (ICD-10-PCS; 2017-04-18)
DX: T78.3XXA Angioneurotic edema, initial encounter (principal); J96.01 Acute respiratory failure with hypoxia; J18.9 Pneumonia, unspecified organism; A04.72 Enterocolitis due to Clostridium difficile, not specified as recurrent; J95.851 Ventilator associated pneumonia; A02.9 Salmonella infection, unspecified; E87.1 Hypo-osmolality and hyponatremia; K92.2 Gastrointestinal hemorrhage, unspecified; R78.81 Bacteremia; T38.3X5A Adverse effect of insulin and oral hypoglycemic [antidiabetic] drugs, initial encounter; K63.5 Polyp of colon; Z78.1 Physical restraint status; E11.9 Type 2 diabetes mellitus without complications; E87.6 Hypokalemia; I27.20 Pulmonary hypertension, unspecified; D50.0 Iron deficiency anemia secondary to blood loss (chronic); T50.2X5A Adverse effect of carbonic-anhydrase inhibitors, benzothiadiazides and other diuretics, initial encounter; Z66 Do not resuscitate; E78.5 Hyperlipidemia, unspecified; E03.9 Hypothyroidism, unspecified; F03.90 Unspecified dementia, unspecified severity, without behavioral disturbance, psychotic disturbance, mood disturbance, and anxiety; F32.9 Major depressive disorder, single episode, unspecified; Y95 Nosocomial condition; K57.30 Diverticulosis of large intestine without perforation or abscess without bleeding; K64.8 Other hemorrhoids; K29.70 Gastritis, unspecified, without bleeding; K44.9 Diaphragmatic hernia without obstruction or gangrene; T82.7XXS Infection and inflammatory reaction due to other cardiac and vascular devices, implants and grafts, sequela; Q27.33 Arteriovenous malformation of digestive system vessel; Z79.82 Long term (current) use of aspirin; Z79.4 Long term (current) use of insulin; Z79.899 Other long term (current) drug therapy; Z88.8 Allergy status to other drugs, medicaments and biological substances
CPT/HCPCS: 36415; 36430; 36569; 36600; 43239; 43270; 45380; 45385; 71045; 71260; 74018; 76937; 80048; 80053; 81001; 82272; 82550; 82607; 82728; 82746; 82803; 82962; 83540; 83550; 83605; 83690; 83735; 83880; 84100; 84443; 84466; 84484; 85025; 85027; 85045; 86850; 86900; 86901; 86920; 87040; 87070; 87077; 87086; 87088; 87186; 87205; 87493; 87804; 88305; 88342; 93005; 93010; 93306; 94002; 94003; 94640; 94660; 94799; 96361; 96374; 96375; 99291; A9270 GY; C1751; G8978-GP; G8979-GP; G8996-GN; G8997-GN; J0131; J0171; J0330; J0696; J1200; J1450; J1610; J1642; J1815; J1940; J1956; J2020; J2185; J2250; J2310; J2405; J2543; J2704; J2920; J2930; J3010; J3370; J3475; J3480; J3490; J7030; J7620; P9016; Q0138; S0164